=== PATIENT | female | born 2000 | race Caucasian/White ===

== ENCOUNTER 2022-06-18 07:39 | Inpatient (IN) ==
[2022-06-18] MEDS ORDERED: OXYTOCIN 30 UNITS/500 ML BAG IV PRN (08:54)
[2022-06-18] MEDS ORDERED: LIDOCAINE 1% LOCAL 20 ML VIAL INFIL PRN (08:54)
[2022-06-18] MEDS ORDERED: DINOPROSTONE 10 MG INSERT PV ONE (08:54)
--- NOTE | 2022-06-18 09:27 | History & Physical Report ---
Date of Service June 18, 2022 Assessment & Plan (1) IUGR (intrauterine growth restriction): Plan: 21-year-old G1, P0 at 37 weeks of gestation with severe IUGR, recommended induction of at 37 weeks by [facility], Vital signs stable afebrile, heart rate reassuring, GBS negative, Cervix unfavorable, Plan to admit, monitor, labs, cervical ripening with Cervidil, Patient understands what to expect during induction of labor, All questions were answered. Admission and Anticipated Discharge Date Admission Date: June 18, 2022 History of Present Illness Primary Care Provider: NO PCP Patient is a 21-year-old G1, P0 at 37 weeks of gestation who was scheduled for induction of labor for severe IUGR, recommended by [facility], estimated weight less than 1 percentile. Patient has no complaints. She denies contractions, leakage of fluid, vaginal bleeding. She reports good movements. Her has been complicated by 1. IUGR, Doppler studies were within normal limits, 2. History of anorexia nervosa, BMI of 17 at new OB visit, 3. History of heart palpitations, echo was within normal limits, Allergies Allergy/AdvReac Type Severity Reaction Status Date / Time ibuprofen [From Motrin] Allergy Unknown Verified 06/18/22 08:20 Penicillins Allergy Hives Verified 06/18/22 08:20 Home Medications Medication Instructions Recorded Confirmed Type prenat.vits,jesús,fvj-edmd-mdagc 1 tab PO DAILY 06/18/22 06/18/22 History Patient History Medical History (Updated 06/18/22 @ 09:26 by Jemal Muller MD) Anorexia nervosa in remission Family History Other FHx: pancreatic cancer Social History Smoking Status: Never smoker Hx Alcohol Use: No Hx Substance Use: No Preferred Language: Chadian Communication Ability: Effective Mail Manager Required: No Beliefs That Will Affect Care: None marital status: Single Current Living Situation: Significant Other Other Information That Helps Us Care for You: No Feels Safe at Home: Yes Safety Concerns: Feels Safe At This Time Assistive Devices: None 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 STDs, no history of chlamydia, gonorrhea, herpes Review of Systems as per Subjective / HPI Physical Exam Constitutional: WD/WN, vitals as above well developed, well nourished and + thin Genitourinary: normal external appearance OB Exam Abdomen: + vertex (Confirmed by bedside ultrasound) Manual OB Exam: + cervical dilation (0), + cervical effacement (0) and + station high OB Exam Monitor Tracing: + external uterine monitor used and + category I Results & Data ([facility]) Vital Signs (Past 12 Hours) Vital Signs Temp Pulse Resp BP 06/18/22 08:42 82 124/81 06/18/22 07:52 36.8 C 99 H 20 128/86
[2022-06-18 09:28] LABS: Hematocrit (blood only) 39.8 % (37.0-47.0); Hemoglobin 13.6 g/dl (12.0-16.0); Mean Corpuscular Hemoglobin 30.6 pg (25.0-34.0); Mean Corpuscular Hgb Conc 34.2 g/dL (32.0-36.0); Mean Corpuscular Volume 89.6 fL (80.0-100.0); Mean Platelet Volume 10.1 fL (9.4-12.4); Platelet Count 233 K/uL (130-400); RDW Coefficient of Variation 12.7 % (11.5-14.5); RDW Standard Deviation 41.7 fL (36.4-46.3); Red Blood Count 4.44 M/uL (4.20-5.40); White Blood Count 9.19 K/ul (4.8-10.8)
[2022-06-18] MEDS ORDERED: BUTORPHANOL TARTRATE 1 MG/ML VIAL IV PRN (09:40)
--- NOTE | 2022-06-18 23:16 | Obstetrical Progress Note ---
Date of Service June 18, 2022 Assessment & Plan Admission and Anticipated Discharge Date Admission Date: June 18, 2022 Subjective Patient is reevaluated. She does not feel contractions. Mild irregular cramping only. No LOF/VB Cervidil was removed by her nurse. VE; cervix is still closed, 50%, -3 FHR categ I Patient desires to eat and then continue with cervical ripening. Results & Data ([facility]) Vital Signs (Past 12 Hours) Vital Signs Temp Pulse Resp BP 06/18/22 19:09 36.7 C 74 18 114/74 06/18/22 15:48 36.8 C 64 20 123/68 06/18/22 11:29 36.8 C 79 20 119/78
[2022-06-19] MEDS: miSOPROStoL 50 MCG TAB PO SCH ×4 (00:30→20:33)
--- NOTE | 2022-06-19 15:17 | Labor Progress Brief Note ---
Date of Service June 19, 2022 Assessment & Plan Admission and Anticipated Discharge Date Admission Date: June 18, 2022 Physical Exam Genitourinary: Manual OB Exam: + cervical dilation fingertip, + cervical effacement 50% and + station high OB Exam Monitor Tracing: + external FHT monitor used, + external uterine monitor used, + category I and + normal FHT variability cervix still posterior and tightly closed. Karolina every 2 minutes so not able to re-dose Cytotec or Oxytocin at this time. Will continue laboring and ambulating as patient wants unmedicated labor/delivery. [facility] Vital Signs (Past 12 Hours) Vital Signs Temp Pulse Resp BP 06/19/22 14:01 74 109/74 06/19/22 10:40 18 06/19/22 10:40 36.6 C 18 06/19/22 10:41 72 109/78 06/19/22 08:06 70 107/76 06/19/22 04:02 36.6 C 55 L 18 101/59 L
[2022-06-20] MEDS: miSOPROStoL 50 MCG TAB PO SCH ×5 (02:52→23:44)
[2022-06-20] MEDS: LACTATED RINGER'S 1,000 ML IV PRN ×2 (05:51→10:06)
[2022-06-20] MEDS ORDERED: OXYTOCIN 30 UNITS/500 ML BAG IV PRN (08:57)
--- NOTE | 2022-06-20 09:00 | Obstetrical Progress Note ---
Date of Service June 20, 2022 Assessment & Plan (1) 37 weeks gestation of : Plan: Patient currently on day 3 of induction, has received Cervidil and Cytotec. Last dose of Cytotec 530 this morning Patient has made little to no progress, she was agreeable to AROM and started oxytocin for augmentation Start Pit, anticipate spontaneous vaginal delivery Discussed with patient if she does not go into active labor of 6 cm, after 24 hours of oxytocin, consider failed induction and plan for primary Patient voiced understanding and agreement with the plan. All questions answered in the room (2) IUGR (intrauterine growth restriction): (3) Anorexia nervosa in remission: Admission and Anticipated Discharge Date Admission Date: June 18, 2022 Subjective Patient comfortable in bed at this time, denies any complaints Physical Exam Genitourinary: heart tracing: Baseline 1 35-1 40, moderate variability, positive accelerations, no decelerations, category 1 tracing Tocometer: Irregular contractions Cervix: 05/25/2, AROM performed with copious amount of clear fluid, no cord felt, IUPC placed No complications Results & Data ([facility]) Vital Signs (Past 12 Hours) Vital Signs Temp Pulse Resp BP Pulse Ox 06/20/22 07:20 36.8 C 18 06/20/22 07:20 18 06/20/22 08:56 100 06/20/22 08:56 72 06/20/22 08:56 67 133/82 06/20/22 08:51 68 100 06/20/22 08:46 73 87 L 06/20/22 08:45 229 H 82 L 06/20/22 08:40 75 99 06/20/22 08:36 70 90 06/20/22 08:35 65 100 06/20/22 08:30 67 98 06/20/22 08:25 69 99 06/20/22 08:20 76 98 06/20/22 08:15 79 98 06/20/22 08:10 76 97 06/20/22 08:05 73 98 06/20/22 08:01 78 92 06/20/22 08:00 72 98 06/20/22 07:55 73 98 06/20/22 07:50 72 98 06/20/22 07:45 79 99 06/20/22 07:40 79 99 06/20/22 07:39 82 92 06/20/22 07:35 71 98 06/20/22 07:30 79 98 06/20/22 07:25 85 128/76 96 06/20/22 07:20 95 H 95 06/20/22 07:15 72 98 06/20/22 07:10 71 97 06/20/22 07:11 72 91 06/20/22 07:05 69 97 06/20/22 07:00 64 97 06/20/22 06:55 63 97 06/20/22 06:50 62 97 06/20/22 06:45 62 97 06/20/22 06:40 65 97 06/20/22 06:35 63 98 06/20/22 06:30 63 98 06/20/22 06:25 72 99 06/20/22 06:20 63 100 06/20/22 06:10 65 100 06/20/22 06:05 63 100 06/20/22 06:00 98 06/20/22 06:00 70 06/20/22 06:00 63 92 06/20/22 05:55 67 100 06/20/22 05:52 68 129/82 06/20/22 05:50 94 06/20/22 05:50 82 06/20/22 05:50 122 H 89 L 06/20/22 03:06 16 06/20/22 03:06 36.8 C 16 06/20/22 03:07 63 101/60 06/19/22 23:31 36.7 C 61 18 96/51 L
[2022-06-20] MEDS ORDERED: fentaNYL citrate 100 MCG/2 ML VIAL ONE (10:13)
[2022-06-20] MEDS ORDERED: ePHEDrine sulfate 50 MG/ML AMP ONE (10:13)
[2022-06-20] MEDS ORDERED: SODIUM CHLORIDE 0.9% INJ 10 ML VIAL ONE (10:13)
[2022-06-20] MEDS ORDERED: BUPIVACAINE 0.25% 30 ML VIAL ONE (10:14)
[2022-06-20] MEDS ORDERED: LIDOCAINE 2%/EPINEPHRINE 1:200,000 20 ML SDV ONE ×2 (10:14→15:27)
[2022-06-20] MEDS ORDERED: fentaNYL 2MCG/ML ROPIVACAINE 1.25MG/ML 100 ML BAG EPI ONE (10:14)
[2022-06-20] MEDS ORDERED: fentaNYL 2MCG/ML ROPIVACAINE 1.25MG/ML 100 ML BAG EPI PRN (11:00)
[2022-06-20] MEDS ORDERED: NALOXONE HCL 1 MG in SODIUM CHLORIDE 0.9% 1000ML 1,000 ML IV PRN ×2 (11:00→16:08)
[2022-06-20] MEDS ORDERED: ONDANSETRON INJ 2 MG/ML 2 ML VIAL IV PRN ×2 (11:00→16:08)
[2022-06-20] MEDS ORDERED: ePHEDrine sulfate 50 MG/ML AMP IV PRN ×2 (11:00→16:08)
[2022-06-20] MEDS ORDERED: NALOXONE HCL 0.4 MG/1 ML VIAL/CARP IV PRN ×2 (11:00→16:08)
[2022-06-20] MEDS ORDERED: NALBUPHINE HCL INJ 10 MG/ML AMP IV PRN ×2 (11:00→16:08)
[2022-06-20] MEDS ORDERED: diphenhydrAMINE 50 MG/ML VIAL IV PRN ×2 (11:00→16:08)
--- NOTE | 2022-06-20 11:01 | Anesthesiology Consultation ---
Date of Service June 20, 2022 Assessment & Plan Chart Review Chart Review: Patient NOT seen in Pre Admission Testing and Acceptable Risk for Labor Epidural Consults Requested none ASA ASA2 Proposed Anesthesia Anesthesia Type: Labor Epidural Risk / Benefits Reviewed With: PT / POA / Parent / Guardian, Accepts Plan and Informed Consent Obtained History Height/Weight Height: 5 ft 6 in Weight: 68.039 kg Allergies Allergy/AdvReac Type Severity Reaction Status Date / Time ibuprofen [From Motrin] Allergy Unknown Verified 06/18/22 08:20 Penicillins Allergy Hives Verified 06/18/22 08:20 Medications Home Medications Medication Instructions Recorded Confirmed Last Taken prenat.vits,jesús,krt-gmah-eoyml 1 tab PO DAILY 06/18/22 06/18/22 06/17/22 19:00 Active Medications Generic Name Dose Route Start Last Admin Trade Name Freq PRN Reason Stop Dose Admin Lactated Ringer's 1,000 mls @ 150 mls/hr 06/18/22 08:54 06/20/22 10:06 Lr IV 06/27/22 08:53 999 mls/hr .[id number] PRN Infusion L&D Protocol Protocol Oxytocin 30 units in 500 mls @ 2 mls/hr 06/20/22 08:57 06/20/22 09:38 Pitocin IV 06/22/22 08:56 0.12 units/hr .Q24H PRN 2 mls/hr Labor Induction/Augmentation Administration Protocol 0.12 UNITS/HR Misoprostol 50 mcg 06/19/22 00:00 06/20/22 09:15 Misoprostol 50 Mcg Tab PO 07/19/22 00:00 Not Given Q4 SUSAN Past Medical History Medical History (Updated 06/20/22 @ 08:34 by Diamond Elizabeth MD, PhD) Anorexia nervosa in remission Exercise / Class Metabolic Activity II 4-5 Yardwork/Stairs/Walk up hill Past Family History Family History Other FHx: pancreatic cancer Past Anesthesia History No Hx of Anesthesia Complications and No Family Hx of Anesthesia Complications History of PONV No Hx of PONV and No Hx of Motion Sickness Social History Smoking Status: Never smoker Hx Alcohol Use: No Hx Substance Use: No Physical Exam Vital Signs Last Vital Signs Temp 36.9 C 06/20/22 10:56 Pulse 96 H 06/20/22 10:59 Resp 16 06/20/22 10:56 BP 115/72 06/20/22 10:59 Pulse Ox 100 06/20/22 10:56 ENMT Mouth: no dentition abnormality Thyromental Distance: > or= 3.5 Finger Breadths Mallampati Class: II Neck normal visual inspection Respiratory normal respiratory effort Auscultation: lungs clear to auscultation bilaterally Cardiovascular Rate/Rhythm: regular rate and regular rhythm Psychiatric Orientation: alert Testing Laboratory Results 06/18/22 09:11
--- NOTE | 2022-06-20 11:32 | Obstetrical Progress Note ---
Date of Service June 20, 2022 Assessment & Plan (1) 37 weeks gestation of : Plan: Continue augmentation Anticipate spontaneous vaginal delivery (2) IUGR (intrauterine growth restriction): (3) Anorexia nervosa in remission: Admission and Anticipated Discharge Date Admission Date: June 18, 2022 Subjective Patient comfortable in bed at this time, denies any complaints Epidural in place Physical Exam Genitourinary: FHT:baseline 103s, mod variability, +accels, late decels, cat II tracing [place]: q2 min pit at 2 Cx; 1.5/50/-[address] Results & Data ([facility]) Vital Signs (Past 12 Hours) Vital Signs Temp Pulse Resp BP Pulse Ox 06/20/22 07:20 36.8 C 18 06/20/22 07:20 18 06/20/22 11:26 77 100 06/20/22 11:24 81 108/71 92 06/20/22 11:21 77 99 06/20/22 11:00 18 06/20/22 11:00 18 06/20/22 11:19 73 109/68 06/20/22 11:16 75 85 L 06/20/22 11:15 74 111/69 06/20/22 11:11 79 99 06/20/22 11:09 75 111/68 06/20/22 11:07 92 06/20/22 11:07 79 06/20/22 11:06 79 100 06/20/22 11:07 71 109/58 L 06/20/22 11:05 73 112/67 06/20/22 11:03 72 109/59 L 06/20/22 11:01 81 103/60 98 06/20/22 10:59 96 H 115/72 06/20/22 10:57 73 110/66 06/20/22 10:54 16 06/20/22 10:54 16 06/20/22 10:56 16 06/20/22 10:56 36.9 C 78 16 100 06/20/22 10:55 76 116/68 06/20/22 10:52 77 90 06/20/22 10:53 80 122/74 06/20/22 10:51 100 06/20/22 10:51 84 06/20/22 10:51 72 119/76 06/20/22 10:48 125/78 06/20/22 10:46 90 100 02/15/23 10:43 90 93 06/20/22 10:41 74 100 06/20/22 10:36 70 99 06/20/22 10:33 78 139/84 06/20/22 10:34 63 120/78 06/20/22 10:31 77 100 06/20/22 10:26 95 06/20/22 10:26 73 06/20/22 10:26 74 93 06/20/22 10:21 75 96 06/20/22 10:19 80 88 L 06/20/22 10:18 81 130/79 06/20/22 10:16 79 97 06/20/22 10:12 73 91 06/20/22 10:11 64 100 06/20/22 10:06 72 100 06/20/22 10:04 74 90 06/20/22 10:03 66 126/80 06/20/22 10:01 84 97 06/20/22 09:58 79 92 06/20/22 09:56 80 100 06/20/22 09:51 80 95 06/20/22 09:48 71 129/86 06/20/22 09:46 79 99 06/20/22 09:41 73 99 06/20/22 09:36 73 99 06/20/22 09:31 71 100 06/20/22 09:21 81 99 06/20/22 09:16 72 99 06/20/22 09:11 84 98 06/20/22 09:07 89 91 06/20/22 09:06 76 98 06/20/22 08:50 18 06/20/22 08:50 36.9 C 18 06/20/22 09:01 76 100 06/20/22 08:57 69 120/85 06/20/22 08:56 100 06/20/22 08:56 72 06/20/22 08:56 67 133/82 06/20/22 08:51 68 100 06/20/22 08:46 73 87 L 06/20/22 08:45 229 H 82 L 06/20/22 08:40 75 99 06/20/22 08:36 70 90 06/20/22 08:35 65 100 06/20/22 08:30 67 98 06/20/22 08:25 69 99 06/20/22 08:20 76 98 06/20/22 08:15 79 98 06/20/22 08:10 76 97 06/20/22 08:05 73 98 06/20/22 08:01 78 92 06/20/22 08:00 72 98 06/20/22 07:55 73 98 06/20/22 07:50 72 98 06/20/22 07:45 79 99 06/20/22 07:40 79 99 06/20/22 07:39 82 92 06/20/22 07:35 71 98 06/20/22 07:30 79 98 06/20/22 07:25 85 128/76 96 06/20/22 07:20 95 H 95 06/20/22 07:15 72 98 06/20/22 07:10 71 97 06/20/22 07:11 72 91 06/20/22 07:05 69 97 06/20/22 07:00 64 97 06/20/22 06:55 63 97 06/20/22 06:50 62 97 06/20/22 06:45 62 97 06/20/22 06:40 65 97 06/20/22 06:35 63 98 06/20/22 06:30 63 98 06/20/22 06:25 72 99 06/20/22 06:20 63 100 06/20/22 06:10 65 100 06/20/22 06:05 63 100 06/20/22 06:00 98 06/20/22 06:00 70 06/20/22 06:00 63 92 06/20/22 05:55 67 100 06/20/22 05:52 68 129/82 06/20/22 05:50 94 06/20/22 05:50 82 06/20/22 05:50 122 H 89 L 06/20/22 03:06 16 06/20/22 03:06 36.8 C 16 06/20/22 03:07 63 101/60 06/19/22 23:31 36.7 C 61 18 96/51 L
[2022-06-20] MEDS ORDERED: GENTAMICIN CONSULT ACTIVE PRN (14:24)
--- NOTE | 2022-06-20 14:27 | Obstetrical Progress Note ---
Date of Service June 20, 2022 Assessment & Plan (1) 37 weeks gestation of : Plan: Noted prolonged category 2 tracing, with recurrent late decelerations, oxytocin was discontinued. Remained category 2 tracing despite intervention and maternal repositioning. Now minimal to absent variability. We will proceed with primary Patient was counseled at the bedside, consents were signed, see op report for counseling note Preop gent and clinda ordered Proceed with primary delivery (2) IUGR (intrauterine growth restriction): (3) Anorexia nervosa in remission: Admission and Anticipated Discharge Date Admission Date: June 18, 2022 Subjective Patient comfortable in bed at this time, denies any complaints Epidural in place Physical Exam Genitourinary: heart tracing: Baseline 135, minimal variability, no accelerations, previously having late recurrent decelerations, category 2 tracing Tocometer: Contractions every 3 to 4 minutes Cervix: Remains unchanged from previous exam Results & Data ([facility]) Vital Signs (Past 12 Hours) Vital Signs Temp Pulse Resp BP Pulse Ox 06/20/22 07:20 36.8 C 18 06/20/22 07:20 18 06/20/22 14:21 87 94 06/20/22 14:19 92 H 92 06/20/22 14:16 80 98 06/20/22 14:13 75 116/71 06/20/22 14:12 81 93 06/20/22 14:11 79 99 06/20/22 14:07 81 91 06/20/22 14:06 81 96 06/20/22 14:01 73 82 L 06/20/22 13:55 18 06/20/22 13:55 37.0 C 18 06/20/22 14:00 72 18 92 06/20/22 13:59 64 112/72 06/20/22 13:56 70 95 06/20/22 13:52 78 92 06/20/22 13:51 71 99 06/20/22 13:46 76 99 06/20/22 13:42 67 92/55 L 06/20/22 13:41 74 100 06/20/22 13:40 73 93 06/20/22 13:36 71 98 06/20/22 13:31 68 99 06/20/22 13:30 18 06/20/22 13:30 18 06/20/22 13:29 69 101/58 L 06/20/22 13:26 92 06/20/22 13:26 77 06/20/22 13:26 87 85 L 06/20/22 13:21 68 100 06/20/22 13:16 71 96 06/20/22 13:17 74 94 06/20/22 13:00 16 06/20/22 13:00 16 06/20/22 13:12 71 94/53 L 06/20/22 13:11 78 100 06/20/22 13:06 83 98 06/20/22 13:01 80 100 06/20/22 12:56 100 06/20/22 12:56 78 06/20/22 12:57 76 104/53 L 06/20/22 12:56 77 94 06/20/22 12:51 81 100 06/20/22 12:30 20 06/20/22 12:30 20 06/20/22 12:46 79 84 L 06/20/22 12:47 71 90 06/20/22 12:30 20 06/20/22 12:30 20 06/20/22 12:43 77 121/65 06/20/22 12:41 71 97 06/20/22 12:42 71 91 06/20/22 12:36 71 94 06/20/22 12:31 76 100 06/20/22 12:28 73 87 L 06/20/22 12:26 74 100 06/20/22 12:27 80 116/75 06/20/22 12:21 67 100 06/20/22 12:20 74 89 L 06/20/22 12:16 100 06/20/22 12:16 70 06/20/22 12:16 68 100/62 06/20/22 12:14 89 L 06/20/22 12:14 74 06/20/22 12:14 68 93/53 L 06/20/22 12:11 69 99 06/20/22 12:06 70 100 06/20/22 12:00 16 06/20/22 12:00 16 06/20/22 12:01 72 97 06/20/22 11:59 80 93 06/20/22 11:58 75 114/62 06/20/22 11:56 87 96 06/20/22 11:52 75 85 L 06/20/22 11:51 79 97 06/20/22 11:46 75 100 06/20/22 11:45 81 90 06/20/22 11:43 74 110/67 06/20/22 11:41 75 100 06/20/22 11:38 83 90 06/20/22 11:13 16 06/20/22 11:13 16 06/20/22 11:36 80 100 06/20/22 11:30 18 06/20/22 11:30 18 06/20/22 11:31 79 16 100 06/20/22 11:00 18 06/20/22 11:00 18 06/20/22 11:26 77 100 06/20/22 11:24 81 108/71 92 06/20/22 11:21 77 99 06/20/22 11:00 18 06/20/22 11:00 18 06/20/22 11:19 73 109/68 06/20/22 11:16 75 85 L 06/20/22 11:15 74 111/69 06/20/22 11:11 79 99 06/20/22 11:09 75 111/68 06/20/22 11:07 92 06/20/22 11:07 79 06/20/22 11:06 79 16 100 06/20/22 11:07 71 109/58 L 06/20/22 11:05 73 112/67 06/20/22 11:03 72 109/59 L 06/20/22 11:01 81 103/60 98 06/20/22 10:59 96 H 115/72 06/20/22 10:57 73 110/66 06/20/22 10:54 16 06/20/22 10:54 16 06/20/22 10:56 16 06/20/22 10:56 36.9 C 78 16 100 06/20/22 10:55 76 116/68 06/20/22 10:52 77 90 06/20/22 10:53 80 122/74 06/20/22 10:51 100 06/20/22 10:51 84 06/20/22 10:51 72 119/76 06/20/22 10:48 125/78 06/20/22 10:46 90 100 06/20/22 10:43 90 93 06/20/22 10:41 74 100 06/20/22 10:36 70 99 06/20/22 10:33 78 139/84 06/20/22 10:34 63 120/78 06/20/22 10:31 77 100 06/20/22 10:26 95 06/20/22 10:26 73 06/20/22 10:26 74 93 06/20/22 10:21 75 96 06/20/22 10:19 80 88 L 06/20/22 10:18 81 130/79 06/20/22 10:16 79 97 06/20/22 10:12 73 91 06/20/22 10:11 64 100 06/20/22 10:06 72 100 06/20/22 10:04 74 90 06/20/22 10:03 66 126/80 06/20/22 10:01 84 97 06/20/22 09:58 79 92 06/20/22 09:56 80 100 06/20/22 09:51 80 95 06/20/22 09:48 71 129/86 06/20/22 09:46 79 99 06/20/22 09:41 73 99 06/20/22 09:36 73 99 06/20/22 09:31 71 100 06/20/22 09:21 81 99 06/20/22 09:16 72 99 06/20/22 09:11 84 98 06/20/22 09:07 89 91 06/20/22 09:06 76 98 06/20/22 08:50 18 06/20/22 08:50 36.9 C 18 06/20/22 09:01 76 100 06/20/22 08:57 69 120/85 06/20/22 08:56 100 06/20/22 08:56 72 06/20/22 08:56 67 133/82 06/20/22 08:51 68 100 06/20/22 08:46 73 87 L 06/20/22 08:45 229 H 82 L 06/20/22 08:40 75 99 06/20/22 08:36 70 90 06/20/22 08:35 65 100 06/20/22 08:30 67 98 06/20/22 08:25 69 99 06/20/22 08:20 76 98 06/20/22 08:15 79 98 06/20/22 08:10 76 97 06/20/22 08:05 73 98 06/20/22 08:01 78 92 06/20/22 08:00 72 98 06/20/22 07:55 73 98 06/20/22 07:50 72 98 06/20/22 07:45 79 99 06/20/22 07:40 79 99 06/20/22 07:39 82 92 06/20/22 07:35 71 98 06/20/22 07:30 79 98 06/20/22 07:25 85 128/76 96 06/20/22 07:20 95 H 95 06/20/22 07:15 72 98 06/20/22 07:10 71 97 06/20/22 07:11 72 91 06/20/22 07:05 69 97 06/20/22 07:00 64 97 06/20/22 06:55 63 97 06/20/22 06:50 62 97 06/20/22 06:45 62 97 06/20/22 06:40 65 97 06/20/22 06:35 63 98 06/20/22 06:30 63 98 06/20/22 06:25 72 99 06/20/22 06:20 63 100 06/20/22 06:10 65 100 06/20/22 06:05 63 100 06/20/22 06:00 98 06/20/22 06:00 70 06/20/22 06:00 63 92 06/20/22 05:55 67 100 06/20/22 05:52 68 129/82 06/20/22 05:50 94 06/20/22 05:50 82 06/20/22 05:50 122 H 89 L 06/20/22 03:06 16 06/20/22 03:06 36.8 C 16 06/20/22 03:07 63 101/60
--- NOTE | 2022-06-20 14:30 | Discharge Summary ---
Date of Service June 20, 2022 Admission HPI Per Admitting Provider Patient is a 21-year-old G1, P0 at 37 weeks of gestation who was scheduled for induction of labor for severe IUGR, recommended by MFM, estimated weight less than 1 percentile. Patient has no complaints. She denies contractions, leakage of fluid, vaginal bleeding. She reports good movements. Her has been complicated by 1. IUGR, Doppler studies were within normal limits, 2. History of anorexia nervosa, BMI of 17 at new OB visit, 3. History of heart palpitations, echo was within normal limits, Admission Exam (Per Admitting) Constitutional WD/WN, vitals as above Respiratory normal respiratory effort, lungs clear to auscultation Cardiovascular RRR, no murmur, no edema Gastrointestinal (Abdomen) normal bowel sounds, soft, nontender, no hepatosplenomegaly Hospital Course (1) 37 weeks gestation of : Noted prolonged category 2 tracing, with recurrent late decelerations, oxytocin was discontinued. Remained category 2 tracing despite intervention and maternal repositioning. Now minimal to absent variability. We will proceed with primary Patient was counseled at the bedside, consents were signed, see op report for counseling note Preop gent and clinda ordered Proceed with primary delivery (2) IUGR (intrauterine growth restriction): (3) Anorexia nervosa in remission:
[2022-06-20] MEDS ORDERED: CITRIC ACID/SODIUM CITRATE 15 ML UDC PO STA (14:51)
[2022-06-20] MEDS ORDERED: GENTAMICIN SULFATE 340 MG in DEXTROSE 5% 100 ML IV ONE (15:00)
[2022-06-20] MEDS ORDERED: CLINDAMYCIN/D5W 900 MG/50 ML BAG IV ONE (15:00)
[2022-06-20] MEDS ORDERED: MoRPHine SULFATE PF 1 MG/ML 10 ML AMP/VIAL ONE (15:26)
[2022-06-20] MEDS ORDERED: ONDANSETRON INJ 2 MG/ML 2 ML VIAL ONE (15:26)
[2022-06-20] MEDS ORDERED: KETOROLAC 30 MG/ML VIAL ONE (15:26)
[2022-06-20] MEDS ORDERED: OXYTOCIN 10 UNITS/ML 10ML VIAL ONE (15:26)
[2022-06-20] MEDS ORDERED: MoRPHine SULFATE 2 MG/ML CARP IV PRN (16:08)
[2022-06-20] MEDS ORDERED: PROMETHAZINE HCL 6.25 MG in SODIUM CHLORIDE 0.9% 50 ML IV PRN (16:08)
[2022-06-20] MEDS ORDERED: MoRPHine SULFATE PF 1 MG/ML 10 ML AMP/VIAL INT SPINAL ONE (16:08)
[2022-06-20] MEDS ORDERED: MEPERIDINE HCL 25 MG/ML CARP/VIAL IV PRN (16:08)
[2022-06-20] MEDS ORDERED: LACTATED RINGER'S 500 ML IV PRN (16:08)
[2022-06-20] MEDS ORDERED: HYDROmorphone INJ 0.5 MG/0.5 ML SYR IV PRN (16:08)
[2022-06-20] MEDS ORDERED: NALOXONE HCL 0.08 MG in SYRINGE 1.8 ML IV PRN (16:08)
[2022-06-20] MEDS ORDERED: SODIUM CHLORIDE 0.9% 1000ML 1,000 ML IV SCH (16:15)
[2022-06-20] MEDS ORDERED: DC INTRASPINAL MORPHINE SCH (16:15)
[2022-06-20] MEDS ORDERED: NO NARCOTICS OR SEDATIVES SCH (16:15)
[2022-06-20] MEDS ORDERED: DIPHTHERIA/TETANUS/PERTUSSIS 0.5mL SYR/VIAL (Age 7+yrs) IM ONE (16:17)
[2022-06-20] MEDS ORDERED: MAGNESIUM HYDROXIDE SUSP 30 ML UDC PO PRN (16:17)
[2022-06-20] MEDS ORDERED: ACETAMINOPHEN 325 MG TAB PO PRN (16:17)
[2022-06-20] MEDS ORDERED: BENZOCAINE 20% AER SPR 82.5 GM CAN EXT PRN (16:17)
[2022-06-20] MEDS ORDERED: HYDROCORTISONE ACETATE 25 MG SUPP PR PRN (16:17)
[2022-06-20] MEDS ORDERED: SENNA 8.6 MG TAB PO PRN (16:17)
--- NOTE | 2022-06-20 16:27 | Operative Report ---
Post Operative Report Pre & Post Diagnosis Operation Date: 06/20/22 15:30 Primary lower transverse delivery 37 weeks gestation IUGR Nonreassuring heart tracing Remote from delivery Inadequate weight gain in I identified the patient and participated in the time-out.: Yes Procedure Operation Date: 06/20/22 15:30 Primary lower transverse delivery Surgeon Diamond Elizabeth MD, PhD Automatic Toe Laster physical therapist assistant x2 Estimated Blood Loss 500 Findings Consistent with Post-Op Diagnosis Liveborn male at 1547, Apgars 8/9, weight 2179 g. Intact placenta with three- vessel cord. Normal-appearing uterus, bilateral fallopian tubes and ovaries seen at time of surgery. Cord pH pending Fluids See anesthesia record Specimens Placenta Cord pH Drains Torres catheter Anesthesia Type Labor Epidural Complications None Disposition Accompanied Patient To Recovery: No Indications Nonreassuring heart tracing, remote from delivery, IUGR Description of Procedure CD Delivery Note History synopsis: Patient is a 21-year-old -0-1-0 admitted at 37 weeks for induction of labor for IUGR. Upon admission to labor and delivery she received 1 dose of Cervidil, remained closed and was started on p.o. Cytotec which she received several doses 4. On induction day 3 she was checked and found to be 1 cm dilated, artificial rupture of membranes was performed with moderate amount of clear fluid, IUPC was placed and oxytocin was started for augmentation. She received an epidural for pain control. She only progressed to 1.5 cm. She was noted to have recurrent late decelerations, with moderate variability and positive accelerations, and oxytocin was discontinued. Positional changes were made, maternal resuscitation was performed by nursing staff. She continued to have late decelerations, with minimal to absent variability at times, and decision was made to proceed with urgent delivery. Procedure Summary: section was recommended. Risks, benefits and alternatives were discussed including but not limited to infection, bleeding that may require blood products or hysterectomy for life saving measures, injury to surrounding organs including but not limited to bowel, bladder, ureters, tubes and ovaries and/or the baby. Should injury occur it could require longer/additional surgery to repair. Patient was also counselled about risk of DVT/PE, and injury to infant during delivery. The patient stated understanding and desired to proceed. All questions were answered posed by patient. Prior to being taken to the OR, she was given IV clindamycin and gentamicin for antibiotics was administered. The patient was taken to the operating room where regional anesthesia was found to be adequate.She was then prepared and draped in the usual sterile fashion in the dorsal supine position with a leftward tilt displacing the uterus. Torres was draining to gravity. SCDs were on bilateral lower extremities. A pfannenstiel skin incision was then made with the scalpel and carried through to the underlying layer of fascia. The fascia was incised in the midline and the incision extended laterally with the Colmenares scissors. The superior aspect of the facial incision was then grasped with the Rona clamps, elevated and the underlying rectus muscles dissected off bluntly. Attention was then turned to the inferior aspect of this incision which in a similar fashion was grasped, elevated with the Rona clamps and the rectus muscle dissected off bluntly. The rectus muscles were in the midline. The peritoneum identified, grasped with the pick-ups and entered sharply with the Metzenbaum scissors. The peritoneal incision was then extended superiorly and inferiorly with good visualization of the bladder. The bladder blade was inserted and the vesicouterine peritoneum was identified, grasped with the pick-ups, and entered sharply with Metzenbaum scissors. This incision was then extended laterally and the bladder flap created digitally and the bladder blade was reinserted. The lower uterine segment was identified and incised in a transverse fashion with the scalpel. The uterine incision was then extended bluntly laterally. Artificial rupture of membranes demonstrated clear fluid. The bladder blade was removed. The fetus was in cephalic presentation. The infant's head delivered atraumatically. The anterior shoulders were delivered followed by the posterior shoulders then the remainder of the body. The 's mouth and nose were bulb suctioned. The umbilical cord was clamped times two and cut after 30 seconds of delayed cord clamping. The was handed off to the awaiting pediatric staff. A male infant was delivered weighing 2179 g with APGARS of 8 at 1 minute and 9 at 5 minutes. The infant was taken to the nursery for transition. Cord blood gases were obtained. The placenta was removed with manual removal. 30 units of oxytocin were added to IVF and allowed to run freely. The uterus was exteriorized and cleared of all clots and debris. The uterine incision was inspected and found to be without any extensions and was repaired with 0 Vicryl in a running, locked fashion. A second imbricating layer was performed. Upon inspection, the repaired hysterotomy was found to be hemostatic. The uterus was firm and returned to the abdomen. The gutters were cleared of all clots and debris. Noted small area of bleeding from the site of the hysterotomy which closed in [id number] fashion with 0 Vicryl. Xander was then placed on top of the hysterotomy incision. Good hemostasis was noted. The peritoneum was closed with 2-0 Vicryl in a running fashion. The fascia was reapproximated with 0 Vicryl in a running fashion. The subcutaneous layer was closed with 2-0 Vicryl in an interrupted fashionthe skin was closed in a subcuticular fashion with 4-0 vicryl. The incision was covered with Dermabond. The patient tolerated the procedure well. Sponge, lap and needle counts were correct x4. The patient was taken to the recovery room in stable condition. Attestation: My Automatic Toe Laster was necessary throughout the procedure(s) for tissue retraction. I understand that section 1842 (b)(7)(D) of the Social Security Act generally prohibits Medicare physician fee schedule payment for the services of [id number] in teaching hospitals when qualified residents are available to furnish such services. I certify that the services for which payment is claimed were medically necessary, and that no qualified resident was available to perform the services. I further understand that these services are subject to post-payment review by the Medicare carrier. I attest to the content of the Intraoperative Record and any orders documented therein. Any exceptions are noted below.
[2022-06-20] MEDS ORDERED: LACTATED RINGER'S 1,000 ML IV SCH (16:30)
--- NOTE | 2022-06-20 16:30 | Anesthesia Procedure Note ---
Date of Service June 20, 2022 Anesthesia Post Epidural Note Vital Signs Vital Signs: Temp Pulse Resp BP Pulse Ox 37.0 C 111 H 16 117/58 L 100 06/20/22 13:55 06/20/22 16:26 06/20/22 14:30 06/20/22 16:23 06/20/22 16:26 Pain Intensity Lower Abdomen: Pain Intensity: 5 Notes Mental Status: alert / awake / arousable Nausea / Vomiting: adequately controlled Pain: adequately controlled Airway Patency, RR, SpO2: stable & adequate BP & HR: stable & adequate Hydration State: stable & adequate Neuraxial Anesthesia: was administered and sensory block is resolving Anesthetic Complications: no major complications apparent and Pt Satisfied with anesthetic care Epidural: Removed without complications and With tip intact
[2022-06-20 17:06] LABS: Base Excess Cord Arterial Bld -1.2 mEq/L (-9-1.8); Base Excess Cord Venous Blood -2.8 mEq/L (-7.7-1.9); CO2 Cord Arterial Blood 55 mmHg (39.1-73.5); Cord Venous Blood HCO3 25 mmol/L (18.4-26.8); Cord Venous Blood PCO2 53 mmHg (30.4-57.2); Cord Venous Blood PO2 15 mmHg (14.1-43.3); Cord Venous Blood pH 7.28 (7.20-7.44); HCO3 Cord Arterial Blood 26 mmol/L (19.7-28.5); O2 Saturation Cord Venous Bld < 60.0 % (<68); Oxygen Sat Cord Arterial Blood < 60.0 % (<60); PO2 Cord Arterial Blood 9 mmHg (4.1-31.7); pH Cord Arterial Blood 7.29 (7.1-7.38)
--- NOTE | 2022-06-20 17:15 | Anesthesiology Progress Note ---
Date of Service June 20, 2022 Anesthesia Post Procedure Vital Signs Vital Signs: Temp Pulse Resp BP Pulse Ox 06/20/22 17:05 16 06/20/22 16:55 14 06/20/22 16:45 20 06/20/22 16:35 20 06/20/22 16:25 36.7 C 18 06/20/22 07:20 36.8 C 18 06/20/22 07:20 18 06/19/22 19:04 36.8 C 18 06/20/22 17:11 94 H 99 06/20/22 17:10 93 H 92 06/20/22 17:06 101 H 98 06/20/22 17:04 83 111/55 L 06/20/22 17:03 95 H 92 06/20/22 17:01 81 99 06/20/22 16:57 99 H 91 06/20/22 16:56 89 98 06/20/22 16:54 82 113/58 L 06/20/22 16:46 102 H 100 06/20/22 16:44 100 H 115/55 L 06/20/22 16:41 110 H 100 06/20/22 16:39 106 H 93 06/20/22 16:36 97 H 100 06/20/22 16:34 114 H 111/57 L 06/20/22 16:31 119 H 100 06/20/22 16:26 111 H 100 06/20/22 16:23 142 H 117/58 L 06/20/22 16:21 121 H 100 06/20/22 15:27 96 H 115/71 06/20/22 15:26 102 H 97 06/20/22 15:21 110 H 97 06/20/22 15:16 80 99 06/20/22 14:30 16 06/20/22 14:30 16 06/20/22 15:11 82 98 06/20/22 15:12 81 110/79 06/20/22 15:06 84 98 06/20/22 15:01 87 98 06/20/22 14:56 84 95 06/20/22 14:57 77 120/81 06/20/22 14:51 83 96 06/20/22 14:46 88 89 L 06/20/22 14:42 83 118/79 06/20/22 14:41 87 89 L 06/20/22 14:38 85 84 L 02/15/23 14:36 78 100 06/20/22 14:31 81 100 06/20/22 14:26 78 94 06/20/22 14:27 73 112/70 06/20/22 14:21 87 94 06/20/22 14:19 92 H 92 06/20/22 14:16 80 98 06/20/22 14:13 75 116/71 06/20/22 14:12 81 93 06/20/22 14:11 79 99 06/20/22 14:07 81 91 06/20/22 14:06 81 96 06/20/22 14:01 73 82 L 06/20/22 13:55 18 06/20/22 13:55 37.0 C 18 06/20/22 14:00 72 18 92 06/20/22 13:59 64 112/72 06/20/22 13:56 70 95 06/20/22 13:52 78 92 06/20/22 13:51 71 99 06/20/22 13:46 76 99 06/20/22 13:42 67 92/55 L 06/20/22 13:41 74 100 06/20/22 13:40 73 93 06/20/22 13:36 71 98 06/20/22 13:31 68 99 06/20/22 13:30 18 06/20/22 13:30 18 06/20/22 13:29 69 101/58 L 06/20/22 13:26 92 06/20/22 13:26 77 06/20/22 13:26 87 85 L 06/20/22 13:21 68 100 06/20/22 13:16 71 96 06/20/22 13:17 74 94 06/20/22 13:00 16 06/20/22 13:00 16 06/20/22 13:12 71 94/53 L 06/20/22 13:11 78 100 06/20/22 13:06 83 98 06/20/22 13:01 80 100 06/20/22 12:56 100 06/20/22 12:56 78 06/20/22 12:57 76 104/53 L 06/20/22 12:56 77 94 06/20/22 12:51 81 100 06/20/22 12:30 20 06/20/22 12:30 20 06/20/22 12:46 79 84 L 06/20/22 12:47 71 90 06/20/22 12:30 20 06/20/22 12:30 20 06/20/22 12:43 77 121/65 06/20/22 12:41 71 97 06/20/22 12:42 71 91 06/20/22 12:36 71 94 06/20/22 12:31 76 100 06/20/22 12:28 73 87 L 06/20/22 12:26 74 100 06/20/22 12:27 80 116/75 06/20/22 12:21 67 100 06/20/22 12:20 74 89 L 06/20/22 12:16 100 06/20/22 12:16 70 06/20/22 12:16 68 100/62 06/20/22 12:14 89 L 06/20/22 12:14 74 06/20/22 12:14 68 93/53 L 06/20/22 12:11 69 99 06/20/22 12:06 70 100 06/20/22 12:00 16 06/20/22 12:00 16 06/20/22 12:01 72 97 06/20/22 11:59 80 93 06/20/22 11:58 75 114/62 06/20/22 11:56 87 96 06/20/22 11:52 75 85 L 06/20/22 11:51 79 97 06/20/22 11:46 75 100 06/20/22 11:45 81 90 06/20/22 11:43 74 110/67 06/20/22 11:41 75 100 06/20/22 11:38 83 90 06/20/22 11:13 16 06/20/22 11:13 16 06/20/22 11:36 80 100 06/20/22 11:30 18 06/20/22 11:30 18 06/20/22 11:31 79 16 100 06/20/22 11:00 18 06/20/22 11:00 18 06/20/22 11:26 77 100 06/20/22 11:24 81 108/71 92 06/20/22 11:21 77 99 06/20/22 11:00 18 06/20/22 11:00 18 06/20/22 11:19 73 109/68 06/20/22 11:16 75 85 L 06/20/22 11:15 74 111/69 06/20/22 11:11 79 99 06/20/22 11:09 75 111/68 06/20/22 11:07 92 06/20/22 11:07 79 06/20/22 11:06 79 16 100 06/20/22 11:07 71 109/58 L 06/20/22 11:05 73 112/67 06/20/22 11:03 72 109/59 L 06/20/22 11:01 81 103/60 98 06/20/22 10:59 96 H 115/72 06/20/22 10:57 73 110/66 06/20/22 10:54 16 06/20/22 10:54 16 06/20/22 10:56 16 06/20/22 10:56 36.9 C 78 16 100 06/20/22 10:55 76 116/68 06/20/22 10:52 77 90 06/20/22 10:53 80 122/74 06/20/22 10:51 100 06/20/22 10:51 84 06/20/22 10:51 72 119/76 06/20/22 10:48 125/78 06/20/22 10:46 90 100 06/20/22 10:43 90 93 06/20/22 10:41 74 100 06/20/22 10:36 70 99 06/20/22 10:33 78 139/84 06/20/22 10:34 63 120/78 06/20/22 10:31 77 100 06/20/22 10:26 95 06/20/22 10:26 73 06/20/22 10:26 74 93 06/20/22 10:21 75 96 06/20/22 10:19 80 88 L 06/20/22 10:18 81 130/79 06/20/22 10:16 79 97 06/20/22 10:12 73 91 06/20/22 10:11 64 100 06/20/22 10:06 72 100 06/20/22 10:04 74 90 06/20/22 10:03 66 126/80 06/20/22 10:01 84 97 06/20/22 09:58 79 92 06/20/22 09:56 80 100 06/20/22 09:51 80 95 06/20/22 09:48 71 129/86 06/20/22 09:46 79 99 06/20/22 09:41 73 99 06/20/22 09:36 73 99 06/20/22 09:31 71 100 06/20/22 09:21 81 99 06/20/22 09:16 72 99 06/20/22 09:11 84 98 06/20/22 09:07 89 91 06/20/22 09:06 76 98 06/20/22 08:50 18 06/20/22 08:50 36.9 C 18 06/20/22 09:01 76 100 06/20/22 08:57 69 120/85 06/20/22 08:56 100 06/20/22 08:56 72 06/20/22 08:56 67 133/82 06/20/22 08:51 68 100 06/20/22 08:46 73 87 L 06/20/22 08:45 229 H 82 L 06/20/22 08:40 75 99 06/20/22 08:36 70 90 06/20/22 08:35 65 100 06/20/22 08:30 67 98 06/20/22 08:25 69 99 06/20/22 08:20 76 98 06/20/22 08:15 79 98 06/20/22 08:10 76 97 06/20/22 08:05 73 98 06/20/22 08:01 78 92 06/20/22 08:00 72 98 06/20/22 07:55 73 98 06/20/22 07:50 72 98 06/20/22 07:45 79 99 06/20/22 07:40 79 99 06/20/22 07:39 82 92 06/20/22 07:35 71 98 06/20/22 07:30 79 98 06/20/22 07:25 85 128/76 96 06/20/22 07:20 95 H 95 06/20/22 07:15 72 98 06/20/22 07:10 71 97 06/20/22 07:11 72 91 06/20/22 07:05 69 97 06/20/22 07:00 64 97 06/20/22 06:55 63 97 06/20/22 06:50 62 97 06/20/22 06:45 62 97 06/20/22 06:40 65 97 02/15/23 06:35 63 98 06/20/22 06:30 63 98 06/20/22 06:25 72 99 06/20/22 06:20 63 100 06/20/22 06:10 65 100 06/20/22 06:05 63 100 06/20/22 06:00 98 06/20/22 06:00 70 06/20/22 06:00 63 92 06/20/22 05:55 67 100 06/20/22 05:52 68 129/82 06/20/22 05:50 94 06/20/22 05:50 82 06/20/22 05:50 122 H 89 L 06/20/22 03:06 16 06/20/22 03:06 36.8 C 16 06/20/22 03:07 63 101/60 06/19/22 23:31 36.7 C 61 18 96/51 L 06/19/22 19:05 75 110/69 Pain Intensity Lower Abdomen: Pain Intensity: 5 Transfer of Care Handoff Completed per policy Notes Mental Status: alert / awake / arousable Nausea / Vomiting: adequately controlled Pain: adequately controlled Airway Patency, RR, SpO2: stable & adequate BP & HR: stable & adequate Hydration State: stable & adequate Neuraxial Anesthesia: was administered and sensory block is resolving Anesthetic Complications: no major complications apparent and Pt Satisfied with anesthetic care
[2022-06-20] MEDS: OXYTOCIN 30 UNITS in LACTATED RINGER'S 1,000 ML IV SCH (20:16)
[2022-06-20] MEDS: KETOROLAC 30 MG/ML VIAL IV PRN (20:38)
[2022-06-20] MEDS: DOCUSATE SODIUM 100 MG CAP PO SCH (21:19)
[2022-06-20] MEDS: SIMETHICONE 80 MG CHEW PO SCH (21:19)
[2022-06-21] MEDS: KETOROLAC 30 MG/ML VIAL IV PRN (03:47)
[2022-06-21] MEDS: OXYTOCIN 30 UNITS in LACTATED RINGER'S 1,000 ML IV SCH (06:03)
[2022-06-21 07:12] LABS: Basophils # (auto) 0.01 K/uL (0-0.2); Basophils % (auto) 0.1 %; Eosinophils % (auto) 0.9 %; Hematocrit (blood only) 33.7 % (37.0-47.0); Hemoglobin 11.5 g/dl (12.0-16.0); Immature Granulocytes # (auto) 0.07 K/uL (0.01-0.20); Immature Granulocytes % (auto) 0.6 %; Lymphocytes # (auto) 1.64 K/uL (1.2-3.4); Lymphocytes % (auto) 14.3 %; Mean Corpuscular Hemoglobin 30.9 pg (25.0-34.0); Mean Corpuscular Hgb Conc 34.1 g/dL (32.0-36.0); Mean Corpuscular Volume 90.6 fL (80.0-100.0); Neutrophils # (auto) 8.83 K/uL (1.40-6.50); Neutrophils % (auto) 77.1 %; Platelet Count 165 K/uL (130-400); RDW Coefficient of Variation 12.6 % (11.5-14.5); RDW Standard Deviation 41.1 fL (36.4-46.3); Red Blood Count 3.72 M/uL (4.20-5.40); White Blood Count 11.45 K/ul (4.8-10.8)
--- NOTE | 2022-06-21 08:54 | Obstetrical Progress Note ---
Date of Service June 21, 2022 Assessment & Plan Admission and Anticipated Discharge Date Admission Date: June 18, 2022 Subjective Patient is seen and examined. She feels well, no complaints. Pain is under control with oral meds. Has not been OOB yet Tolerating regular diet with out N&V Flatus + BM neg Bleeding is minimal No fever/ chills/ CP/ SOB/ N&V/ Leg pain Breast and bottle feeding without problems Lab Results 06/18/22 06/18/22 06/20/22 Range/Units 09:11 Unknown 15:47 WBC 9.19 (4.8-10.8) K/ul RBC 4.44 (4.20-5.40) M/uL Hgb 13.6 (12.0-16.0) g/dl Hct 39.8 (37.0-47.0) % MCV 89.6 (80.0-100.0) fL MCH 30.6 (25.0-34.0) pg MCHC 34.2 (32.0-36.0) g/dL RDW Std Deviation 41.7 (36.4-46.3) fL RDW Coeff of Conor 12.7 (11.5-14.5) % Plt Count 233 (130-400) K/uL MPV 10.1 (9.4-12.4) fL Immature Gran % (Auto) % Neut % (Auto) % Lymph % (Auto) % [place] % (Auto) % Eos % (Auto) % Baso % (Auto) % Neut # (Auto) (1.40-6.50) K/uL Lymph # (Auto) (1.2-3.4) K/uL [place] # (Auto) (0.11-0.59) K/uL Eos # (Auto) (0-0.50) K/uL Baso # (Auto) (0-0.2) K/uL Immature Gran # (Auto) (0.01-0.20) K/uL Cord ABG pH 7.29 (7.1-7.38) Cord ABG pCO2 55 (39.1-73.5) mmHg Cord ABG pO2 9 (4.1-31.7) mmHg Cord ABG HCO3 26 (19.7-28.5) mmol/L Cord ABG Base Excess -1.2 (-9-1.8) mEq/L Cord ABG O2 Sat < 60.0 (<60) % Cord VBG pH (7.20-7.44) Cord VBG pCO2 (30.4-57.2) mmHg Cord VBG pO2 (14.1-43.3) mmHg Cord VBG HCO3 (18.4-26.8) mmol/L Cord VBG Base Excess (-7.7-1.9) mEq/L Cord VBG O2 Sat (<68) % Blood Gas Comments INFANT A SARS-CoV-2, RNA, NAAT NEGATIVE (NEGATIVE) 06/20/22 06/21/22 Range/Units 15:47 06:58 WBC 11.45 H (4.8-10.8) K/ul RBC 3.72 L (4.20-5.40) M/uL Hgb 11.5 L (12.0-16.0) g/dl Hct 33.7 L (37.0-47.0) % MCV 90.6 (80.0-100.0) fL MCH 30.9 (25.0-34.0) pg MCHC 34.1 (32.0-36.0) g/dL RDW Std Deviation 41.1 (36.4-46.3) fL RDW Coeff of Conor 12.6 (11.5-14.5) % Plt Count 165 (130-400) K/uL MPV 10.0 (9.4-12.4) fL Immature Gran % (Auto) 0.6 % Neut % (Auto) 77.1 % Lymph % (Auto) 14.3 % [place] % (Auto) 7.0 % Eos % (Auto) 0.9 % Baso % (Auto) 0.1 % Neut # (Auto) 8.83 H (1.40-6.50) K/uL Lymph # (Auto) 1.64 (1.2-3.4) K/uL [place] # (Auto) 0.80 H (0.11-0.59) K/uL Eos # (Auto) 0.10 (0-0.50) K/uL Baso # (Auto) 0.01 (0-0.2) K/uL Immature Gran # (Auto) 0.07 (0.01-0.20) K/uL Cord ABG pH (7.1-7.38) Cord ABG pCO2 (39.1-73.5) mmHg Cord ABG pO2 (4.1-31.7) mmHg Cord ABG HCO3 (19.7-28.5) mmol/L Cord ABG Base Excess (-9-1.8) mEq/L Cord ABG O2 Sat (<60) % Cord VBG pH 7.28 (7.20-7.44) Cord VBG pCO2 53 (30.4-57.2) mmHg Cord VBG pO2 15 (14.1-43.3) mmHg Cord VBG HCO3 25 (18.4-26.8) mmol/L Cord VBG Base Excess -2.8 (-7.7-1.9) mEq/L Cord VBG O2 Sat < 60.0 (<68) % Blood Gas Comments INFANT A SARS-CoV-2, RNA, NAAT (NEGATIVE) Vital Signs Temp Pulse Resp BP Pulse Ox O2 Del Method 06/21/22 06:00 18 97 06/21/22 05:00 18 96 06/21/22 04:15 18 96 06/21/22 02:00 18 98 06/21/22 03:46 18 97 06/21/22 03:46 36.8 C 80 18 115/75 97 Room Air 06/21/22 01:00 18 100 06/21/22 00:00 18 99 06/20/22 21:00 20 99 06/20/22 23:00 20 100 06/20/22 22:30 20 99 06/20/22 22:30 36.9 C 81 20 122/74 98 Room Air Intake & Output 06/20/22 06/21/22 06/21/22 22:59 06:59 14:59 Intake Total 1003 / 2526.617 Output Total 600 / 1725 525 / 1725 Balance -600 / 801.617 478 / 801.617 Intake: IV 1003 / 2526.617 Oxytocin 30 units In Lactated 1003 / 1003 Ringer's 1,000 ml @ 125 mls/hr IV .Q8H2M [facility] Rx#:[id number] Output: Urine Amount (Catheter) 600 / 1475 525 / 1475 Torres/Indwelling 600 / 1125 525 / 1125 PE: General: Alert, orientedx3, NAD CVS: S1S2 RRR Lungs; CTAB Abd: soft, NT, ND, BS+, fundus firm, below Umbilicus Incision: Clean, dry, intact Perineum intact, Lochia rubra minimal Ext; NT, no edema AP: 21 yo s/p C Section, pod# 1 VSS Afebrile doing well Continue routine postop care Encourage ambulation, PO intake All questions were answered Results & Data ([facility]) Vital Signs (Past 12 Hours) Vital Signs Temp Pulse Resp BP Pulse Ox O2 Del Method 06/21/22 06:00 18 97 06/21/22 05:00 18 96 06/21/22 04:15 18 96 06/21/22 02:00 18 98 06/21/22 03:46 18 97 06/21/22 03:46 36.8 C 80 18 115/75 97 Room Air 06/21/22 01:00 18 100 06/21/22 00:00 18 99 06/20/22 21:00 20 99 06/20/22 23:00 20 100 06/20/22 22:30 20 99 06/20/22 22:30 36.9 C 81 20 122/74 98 Room Air
[2022-06-21] MEDS: FERROUS SULFATE 325 MG TAB PO SCH (08:59)
[2022-06-21] MEDS: PRENATAL VITAMIN 1 TAB PO SCH (08:59)
[2022-06-21] MEDS: DOCUSATE SODIUM 100 MG CAP PO SCH ×2 (08:59→20:38)
[2022-06-21] MEDS: SIMETHICONE 80 MG CHEW PO SCH ×5 (08:59→20:39)
[2022-06-21] MEDS ORDERED: ONDANSETRON INJ 2 MG/ML 2 ML VIAL IV PRN (10:08)
[2022-06-21] MEDS ORDERED: MEPERIDINE HCL 25 MG/ML CARP/VIAL IV PRN (10:09)
[2022-06-21] MEDS ORDERED: PROMETHAZINE HCL 25 MG in SODIUM CHLORIDE 0.9% 50 ML IV PRN (10:09)
[2022-06-21] MEDS ORDERED: diphenhydrAMINE Capsule 25 MG CAP PO PRN (10:09)
[2022-06-21] MEDS ORDERED: diphenhydrAMINE 50 MG/ML VIAL IV PRN (10:10)
[2022-06-21] MEDS: oxyCODONE/ACETAMINOPHEN 5mg/325mg TAB PO PRN ×3 (13:13→21:29)
[2022-06-21] MEDS ORDERED: bisacodyL 5 MG TABEC PO SCH (20:00)
[2022-06-22] MEDS: oxyCODONE/ACETAMINOPHEN 5mg/325mg TAB PO PRN ×4 (03:09→21:23)
[2022-06-22 07:01] LABS: Hematocrit (blood only) 30.7 % (37.0-47.0); Hemoglobin 10.4 g/dl (12.0-16.0)
[2022-06-22] MEDS: PRENATAL VITAMIN 1 TAB PO SCH (07:11)
[2022-06-22] MEDS: FERROUS SULFATE 325 MG TAB PO SCH (07:12)
[2022-06-22] MEDS: DOCUSATE SODIUM 100 MG CAP PO SCH ×2 (07:12→20:09)
[2022-06-22] MEDS: SIMETHICONE 80 MG CHEW PO SCH ×4 (07:12→20:09)
--- NOTE | 2022-06-22 10:40 | Obstetrical Progress Note ---
Date of Service June 22, 2022 Subjective Ambulation: ambulating normally Voiding: no voiding problems Passing Gas:: Yes Diet Tolerance:: regular diet Lochia:: Small Feeding Type:: breast feeding Current Pain Level(1-10): 0 doing well Physical Exam Constitutional WD/WN, vitals as above Gastrointestinal (Abdomen) Inspection/Auscultation: abdomen normal to inspection and + abdominal surgical incision incision c/d/i Musculoskeletal Extremities: extremities normal to inspection Skin no rashes, warm and dry Neurologic patellar DTR's 2+ bilat, sensation intact Psychiatric A+Ox3, euthymic affect Results & Data ([facility]) Vital Signs (Past 12 Hours) Vital Signs Temp Pulse Resp BP Pulse Ox O2 Del Method 06/22/22 08:26 36.7 C 88 16 112/71 97 Room Air 06/21/22 23:10 36.8 C 88 20 106/77 99 Room Air Laboratory Results 06/18/22 06/18/22 06/20/22 09:11 Unknown 15:47 WBC 9.19 RBC 4.44 Hgb 13.6 Hct 39.8 MCV 89.6 MCH 30.6 MCHC 34.2 RDW Std Deviation 41.7 RDW Coeff of Conor 12.7 Plt Count 233 MPV 10.1 Immature Gran % (Auto) Neut % (Auto) Lymph % (Auto) [place] % (Auto) Eos % (Auto) Baso % (Auto) Neut # (Auto) Lymph # (Auto) [place] # (Auto) Eos # (Auto) Baso # (Auto) Immature Gran # (Auto) Cord ABG pH 7.29 Cord ABG pCO2 55 Cord ABG pO2 9 Cord ABG HCO3 26 Cord ABG Base Excess -1.2 Cord ABG O2 Sat < 60.0 Cord VBG pH Cord VBG pCO2 Cord VBG pO2 Cord VBG HCO3 Cord VBG Base Excess Cord VBG O2 Sat Blood Gas Comments INFANT A SARS-CoV-2, RNA, NAAT NEGATIVE 06/20/22 06/21/22 06/22/22 15:47 06:58 06:27 WBC 11.45 H RBC 3.72 L Hgb 11.5 L 10.4 L Hct 33.7 L 30.7 L MCV 90.6 MCH 30.9 MCHC 34.1 RDW Std Deviation 41.1 RDW Coeff of Conor 12.6 Plt Count 165 MPV 10.0 Immature Gran % (Auto) 0.6 Neut % (Auto) 77.1 Lymph % (Auto) 14.3 [place] % (Auto) 7.0 Eos % (Auto) 0.9 Baso % (Auto) 0.1 Neut # (Auto) 8.83 H Lymph # (Auto) 1.64 [place] # (Auto) 0.80 H Eos # (Auto) 0.10 Baso # (Auto) 0.01 Immature Gran # (Auto) 0.07 Cord ABG pH Cord ABG pCO2 Cord ABG pO2 Cord ABG HCO3 Cord ABG Base Excess Cord ABG O2 Sat Cord VBG pH 7.28 Cord VBG pCO2 53 Cord VBG pO2 15 Cord VBG HCO3 25 Cord VBG Base Excess -2.8 Cord VBG O2 Sat < 60.0 Blood Gas Comments INFANT A SARS-CoV-2, RNA, NAAT
[2022-06-22] MEDS ORDERED: bisacodyL 10 MG SUPP PR PRN (16:17)
[2022-06-23] MEDS: oxyCODONE/ACETAMINOPHEN 5mg/325mg TAB PO PRN ×3 (04:03→12:28)
[2022-06-23] MEDS: FERROUS SULFATE 325 MG TAB PO SCH (08:47)
[2022-06-23] MEDS: PRENATAL VITAMIN 1 TAB PO SCH (08:47)
[2022-06-23] MEDS: SIMETHICONE 80 MG CHEW PO SCH ×2 (08:47→12:28)
[2022-06-23] MEDS: DOCUSATE SODIUM 100 MG CAP PO SCH (08:47)
--- NOTE | 2022-06-23 10:37 | Obstetrical Progress Note ---
Date of Service June 23, 2022 Assessment & Plan (1) delivery delivered: POD #3 pt doing well d/c home with instrcutions Results & Data ([facility]) Vital Signs (Past 12 Hours) Vital Signs Temp Pulse Resp BP Pulse Ox O2 Del Method 06/23/22 08:00 36.9 C 74 18 120/81 100 Room Air 06/23/22 04:00 36.7 C 76 18 132/85 100 Room Air
== END 2022-06-23 14:25 | disposition home or self-care (01) | DRG 787 ==
LOC: 4S1 07:39 → 4E2 06-20 19:08

== ENCOUNTER 2023-12-17 00:37 | Inpatient (IN) ==
[2023-12-17 01:35] LABS: Hematocrit (blood only) 33.9 % (37.0-47.0); Mean Corpuscular Hgb Conc 32.4 g/dL (32.0-36.0); Mean Corpuscular Volume 83.3 fL (80.0-100.0); Mean Platelet Volume 10.2 fL (9.4-12.4); Platelet Count 238 K/uL (130-400); RDW Coefficient of Variation 13.3 % (11.5-14.5); RDW Standard Deviation 39.9 fL (36.4-46.3); Red Blood Count 4.07 M/uL (4.20-5.40); White Blood Count 9.37 K/ul (4.8-10.8)
--- NOTE | 2023-12-17 01:52 | History & Physical Report ---
Date of Service December 17, 2023 Assessment & Plan (1) Premature rupture of membranes: Plan: 22 yo at 39.1 wks with PROM , h/o prior Csection 18 months ago, unfavorable cervix, high presenting part, no signs of labor VSS Afebrile FHR reassuring, Patient declines repeat now. She desires expectant management for now until morning to see whether she will go into labor by herself. Patient understand the risks and benefits of TOLAC/ versus repeat C- section, she read the form with detailed information from [employer] and signed an informed consent. She politely declines augmentation with oxytocin either. Plan to admit, monitor, labs, expectant management per patient request and reevaluate in the morning. (2) History of section complicating : (3) Short interval between pregnancies affecting , antepartum: History of Present Illness Chief Complaint: leakage of fluid Primary Care Provider: NO PCP patient is a 22-year-old -0-1-1 at 39 weeks and 1 day gestation who started to feel leakage of fluid around 11:50 PM last night, she has been leaking since then. It has been clear, no blood. She has mild irregular contractions but they are not painful. She reports good movements. Her has been complicated by, 1. History of prior for IUGR failure to descend and category 2 strip, on June 2022, has scheduled for tomorrow 2. close interval, 3. History of IUGR, growth ultrasounds have been normal by M patient states she was discouraged from repeat due to close interval and she decided for a repeat which was scheduled for tomorrow. She states she wants to talk about TOLAC/. I discussed the risks and benefits of each and gave her the form which was released by [facility]. the patient and her partner read the form in details and I answered their all quest ions and they want to think about it and then decide Allergies Allergy/AdvReac Type Severity Reaction Status Date / Time ibuprofen [From Motrin] Allergy Unknown Verified 12/17/23 01:05 Penicillins Allergy Hives Verified 12/17/23 01:05 Home Medications Medication Instructions Recorded Confirmed Type prenat.vits,jesús,[id number] 1 tab PO DAILY 06/18/22 12/17/23 History Patient History Medical History Anorexia nervosa in remission Anxiety and depression Surgical History Family history of complication of anesthesia Multiple family members maternal side "have woken up during their surgeries" Nausea and vomiting after administration of anesthetic agent 06/20/22 [facility], "vomiting during whole " Hx of section 06/20/22 [facility] Family History Other FHx: pancreatic cancer Nausea and vomiting after administration of anesthetic agent Social History Smoking Status: Never smoker Second Hand Exposure: Yes (hx); Do You Dip or Chew Tobacco: No; Hx Alcohol Use: No Hx Substance Use: No Preferred Language: Faroese Communication Ability: Effective Nursing Service Administrator Required: No Beliefs That Will Affect Care: None marital status: Single Current Living Situation: Significant Other Current Living Situation Comment: partner and toddler Other Information That Helps Us Care for You: No Safety Concerns: Feels Safe At This Time Assistive Devices: None Review of Systems as per Subjective / HPI Physical Exam Constitutional: WD/WN, vitals as above well developed, well nourished and comfortable Gastrointestinal (Abdomen): normal bowel sounds, soft, nontender, no he patosplenomegaly Genitourinary: normal external appearance OB Exam Abdomen: + vertex Manual OB Exam: + cervical dilation (0), + cervical effacement 30% and + station high (POSTERIOR) OB Exam Monitor Tracing: + external uterine monitor used and + category I Bed side US vertex Results & Data Vital Signs (Past 12 Hours) Vital Signs Temp Pulse Resp BP 12/17/23 00:56 36.8 C 82 18 132/77 (1) Premature rupture of membranes PROM onset of labor timing: onset of labor within 24 hours of rupture PROM gestational age: full term Qualified Code(s): O42.02 - Full-term premature rupture of membranes, onset of labor within 24 hours of rupture
[2023-12-17] MEDS: BUTORPHANOL TARTRATE 2 MG/ML VIAL IV PRN (02:55)
--- OUTSIDE RECORDS SUMMARY | 2023-12-17 07:15 | External Medical Summary | Summary of Care ---
Author Name Unknown Organization [facility] Address [address] [place] [address] Phone [phone] Care Team Providers Care Ophthalmic Lens Inspector Name Role Phone Nayla Alicea MD Primary Care Provider [phone] Reason for Visit * Reason Comments [facility] Return Encounter Details Date Type Department Care Team (Late st Contact Info) Description 11/13/2023 11:30 AM EDT Office Visit Gynecology/Obstetri seferino Myers [address] [facility] [place] [address] Puja Harman PA-C [address] [place] [address] Nurse Alka Myers [facility] Return Dia [address] [place] [address] Supervision of high risk in third trimester*; History of section complicating ; History of prior with IUGR ; BMI less than 19,adult; Abnormal thyroid blood test Allergies Active Allergy Reactions Criticality Noted Date Comments Ibuprofen 12/11/2021 Penicillins 12/11/2021 documented as of this encounter (statuses as of 11/13/2023) Medications Medication Sig Dispensed Refills Start Date End Date Status 28-0.8 MG Oral Tablet Take by mouth. Active Breast PumpIndications:Breast feeding status of mother Pump daily while breast feeding. Z39.1, АННА 12/23/23 1 Each 09/10/2023 Active documented as of this encounter (statuses as of 11/13/2023) Active Problems Problem Noted Date Diagnosed Date with 12 completed weeks gestation 11/2023 Abnormal thyroid blood test 06/11/2023 Overview: Low TSH 0.2 with normal free T4 with NOB Endocrinology recommended repeat TSH/T4 in second trimester Lab Results Component Value Date/Time TSH - [facility] 0.26 (L) 06/14/2023 03:06 PM T4, Free 05/15/2023 0.9 - 1.7 ng/dL 1.5 History of section complicating pregnan cy 05/15/2023 Overview: June 2022: primary due to intolerance and failure to progress 2023 Plan: undecided, but most likely TOLAC Last Assessment & Plan: CONSIDERATIONS: Reviewed that patients with a history of a previous section are at increased risk in subsequent pregnancies for abnormal placentation (such as previa, acreta, increta, percreta), uterine rupture, abdominal adhesions (which increases the associated surgical risks of injury to adjacent organs, length of procedure, and increased blood loss), and other incision-related complications (such as hernia, rectal muscle diastasis). These risks increase linearly with the number of previous sections performed. carries a lower risk of hemorrhage and infection than delivery. It also generally involves a shorter hospital admission as well as a less painful and shorter recovery than delivery. The risks of uterine rupture are increased for at 0.2 to 1.5% with prior low transverse uterine incision and up to 10% with prior classical incision. In the event of uterine rupture there is a risk of maternal injury that may require a blood transfusion, hysterectomy, damage to nearby organs and even maternal . There is also a 10 to 25% risk of significant adverse sequelae which includes or permanent injury in 05/999 's. The chances of successful increases with any prior successful deliveries. RECOMMENDATIONS: Routine repeat section is recommended to be scheduled between 39-40 weeks gestation. As per [place]'s 2010 practice bulletin (reaffirmed 2015) regarding offering of trial of labor after delivery, the risks and benefits should be discussed between the patient and her primary OB provider and ultimately agreed upon between these parties and documented as such. Any attempt at should be undertaken at a facility capable of emergent delivery. The following factors are NOT contraindications to offering a trial of labor after delivery: a. Two prior deliveries b. Suspected macrosomia c. Gestation beyond 40 weeks d. History of previous low vertical uterine incision e. Twin gestation (if only one prior ) f. One delivery with an unknown uterine scar type (unless there is a high clinical suspicion of a previous classical uterine incision) Induction of labor for maternal or indications is an option for women undergoing Trial of Labor After . Misoprostol should not be used for cervical ripening or induction of labor. History of prior with IUGR 02/2024 Overview: 06/2022: G2 Severe FGR diagnosed, with EFW at 2%ile Induced at 37w3d due to growth restriction MFM u/s every 4-6 weeks after 24w Last Assessment & Plan: Low risk NIPT and msAFP appreciated. Reviewed plan to follow growth serially to r/o FGR, especially as the third trimester approaches. NSTs will be needed if FGR is diagnosed. BMI less than 19,adult 05/15/2023 Overview: Pre gravid BMI: 17.8 Patient does have history of eating disorder Has been weight consistent for past 2 years Last Assessment & Plan: Reviewed that women with a pre- BMI less than 18.5 have an increased risk for delivery and for growth restriction. Recommended weight gain in is 28-40 lbs. Maternal Medicine ultrasound for anatomy at 19-20 weeks. We do not recommend routine ultrasound for growth as fundal heights should correlate well in this patient population Health counseling 05/15/2023 Overview: Problem Action Taken Date entered Entered by Date resolved Depression Denies any current symptoms 05/15/2023 Angelina Felix RN 05/15/2023 Lack of transportation County transportation discussed 05/15/2023 Angelina Felix RN 05/15/2023 Poor dental hygiene Has not been to dentist since 2019 encouraged 05/15/2023 Angelina Felix RN 05/15/2023 nutrition [facility] discussed. Aware of program but most likely will decline 05/15/2023 Angelina Felix RN 05/15/2023 Problem Action Taken Date entered Entered by Date resolved Current needs or questions Patient denies having any current needs or questions 07/15/2023 Estefani Chandler RN 07/15/2023 Problem Action Taken Date entered Entered by Date resolved Current needs or questions Patient denies having any current needs or questions 08/12/2023 Estefani Chandler RN 08/12/2023 Problem Action Taken Date entered Entered by Date resolved Current needs or questions Patient denies having any current needs or questions 09/10/2023 Estefani Chandler RN 09/10/2023 Problem Action Taken Date entered Entered by Date resolved Current needs or questions Patient denies having any current needs or questions 09/24/2023 Angelina Felix RN 09/24/2023 Racing heart beat 01/19/2022 Overview: See 01/26/22 Cardiology consult. ECHO and Zio Patch monitory x 7 days ordered , supervision, high-risk 12/22/2021 Overview: Primary 06/20/2022 EDC 12/23/2023 Estimated Date of Delivery Comme nts Yes 12/23/2023 Based on Ultraso und documented as of this encounter (statuses as of 11/13/2023) Resolved Problems Problem Noted Date Diagnosed Date Resolved Date Supervision of normal 05/15/2023 07/15/2023 Food insecurity 08/13/2022 05/16/2023 Overview: Per [facility] Protocol IUGR (intrauterine growth re striction) affecting care of mother 04/27/2022 07/04/2022 Overview: 06/14/22 AC noted at <1% with overall EFW of 2146 g at 2%. SYLVIE 17.7 cm. Umbilical artery Doppler normal. Cephalic presentation. BPP 12/11. M recommends delivery at 37 weeks Last Assessment & Plan: Severe FGR diagnosed today, with EFW at 2%ile. Doppler remains normal with BPP 12/11. Delivery is currently planned for 39 weeks, however, in light of severe FGR would recommend delivery at 37 weeks. We discussed that FGR infants born at 37 weeks are more likely to experience difficulty in feeding and keeping warm, which may result in hypoglycemia and the need for pediatric care. As the delivery will be at 37+ weeks, FLM steroids are not indicated. Message will be sent to OB team to help facilitate IOL next week. Questions answered. History of palpitations 02/05/2022 03/0 05/2022 Overview: Reports diagnosed with slight mitral valve prolapse (2017) and had been placed on daily propranolol treatment for episodes of racing heart/palpitations, especially when changing positions. Of note, this all occurred while she was being treated for anorexia and at her lowest weight. S/p Cardiology referral outpatient. Zio patch results appear reasurring and normal echo. Last Assessment & Plan: She met with cardiology on 01/26/22 with plans for a Zio patch and echocardiogram. No medications clinically indicated at this time per that assessment. Underweight 02/05/2022 07/04/2022 Overview: Low pregravid BMI: 17 Last Assessment & Plan: She presents for a anatomy survey. She has a history of a low pre-gravid BMI, history of anorexia, history of palpitations (prior treatment with propranolol, none currently), and a questionable family history for the FOB's side of a neural tube defect. Please see the recent consultation visit from 02/05/22 for details. Labs reviewed: -- cffDNA low risk for aneuploidy We reviewed the results of today's ultrasound. The estimated weight is appropriate for gestational age. The visualized anatomy is unremarkable in appearance. The amniotic fluid amount appears normal. We discussed that ultrasound is not able to identify all anomalies, but it is reassuring that no anomalies were seen today. Family history of spina bifida 02/05/2022 07/04/2022 Overview: ? Hx of spina bifida in FOB sister, though he felt it developed after and related to an infection. . Recommend MSAFP screening between 15-22w Last Assessment & Plan: DISCUSSION: 1. The incidence of spina bifida is < 05/999. 2. Most cases of spina bifida are sporadic. 3. First degree relatives have an increased risk of the condition compared with individuals in the general population. Risk if one parent is affect is 4-5% RECOMMENDATIONS: 1. Recommend MSAFP screening between 15-22w History of anorexia nervosa 01/19/2022 07/04/2022 Overview: S/p inpatient treatment in 2018. Reports overall doing well. When she has depressed moods, does typically shut down and avoid eating. Though she understands she is and needs the caloric intake. States she has support through her boyfriend. Is newer to the area so does not have friends close by. Last Assessment & Plan: Mental health disorders CONSIDERATIONS: Untreated maternal mental health disorders may be associated with an increased risk of multiple poor obstetrical outcomes including miscarriages, low weight, and delivery. Women with such history are at risk for recurrence both during and/or the period. CONSIDERATIONS: Mental illness can and should be treated during when the benefits of treatment outweigh potential risks. Referral to behavioral health services as clinically indicated. Patient educated on resources available within the [facility] system. Studies of first-trimester SSRI exposure do not demonstrate consistent data to support an increased risk for structural malformations. Anti-anxiety or depression medications have been associated with transient effects (withdrawal syndrome). Medication exposure during f irst trimester of 01/19/2022 07/04/2022 Overview: Used to take propranolol PRN. Not currently on medications. Last Assessment & Plan: If medications are indicated, have provided safety profile for both propanolol and metoprolol below. Propranolol - Not expected to increase the risk of congenital malformations. Can be associated with growth restriction. Metoprolol - Not expected to increase the risk of defects. May be associated with growth restriction, though studies are conflicting. Health counseling 12/26/2021 07/04/2022 Overview: Problem Action Taken Date entered Entered by Date resolved Need for baby supplies Distribute cribs letter Refer to local support centers 12/22/2021 Lalit Gr RN 12/22/21 Need for food assistance referred to [facility] and local food mon[place] 12/22/2021 Lalit Gr RN 12/22/21 Poor dental hygiene encourage routine brushing and flossing and referal to local dental clinic that accepts [place] insurances 12/22/2021 Lalit Gr RN 12/22/21 education 1st trimester education given 12/22/2021 Lalit Gr RN 12/22/21 .1st have you cut down with your smoking Yes have you quit Yes have you seen a history card clerk No have you seen a social media marketing manager No are you receiving counseling No have you received dental care during your No are you enrolled in WIC No do you receive food stamps or singleton assistance No 12/22/2021 Lalit Gr RN 12/22/21 Problem Action Taken Date entered Entered by Date resolved Current needs or questions Patient denies having any current needs or questions 01/19/2022 Angelina Felix RN 01/19/2022 Problem Action Taken Date entered Entered by Date resolved Need for food assistance breast pump letter sent 02/16/2022 Estefani Arriaga RN 02/16/22 Problem Action Taken Date entered Entered by Date resolved Education 3rd trimester Education 04/11/2022 Estefani Chandler RN 04/11/2022 Problem Action Taken Date entered Entered by Date resolved Current needs or questions Patient denies having any current needs or questions 04/25/2022 Angelina Felix RN 04/25/2022 Problem Action Taken Date entered Entered by Date resolved Current needs or questions Patient denies having any current needs or questions 05/24/2022 Estefani Chandler RN 05/24/2022 Problem Action Taken Date entered Entered by Date resolved Current needs or questions Patient denies having any current needs or questions 06/07/2022 Angelina Felix RN 06/07/2022 Problem Action Taken Date entered Entered by Date resolved Discussed Post visit and setting up cutting supervisor Will schedule PPV 06/13/2022 Estefani Chandler RN 06/13/2022 Problem Action Taken Date entered Entered by Date resolved Current needs or questions Patient denies having any current needs or questions 07/30/2022 Estefani Chandler RN 07/30/2022 Problem Action Taken Date entered Entered by Date resolved Post education Education given 07/30/2022 Estefani Chandler RN 07/30/2022 documented as of this encounter (statuses as of 11/13/2023) Immunizations Name Administration Dates Next Due TDAP (age 10 and older)(Boostrix) 09/24/2023,11/2021 documented as of this encounter Social History Tobacco Use Types Packs/Day Years Used Date Smoking Tobacco: Never Smokeless Tobacco: Never Alcohol Use Standard Drinks/Week Comments Not Currently 0 (1 standard drink = 0.6 oz pur e alcohol) Hunger Vital Sign Answer Date Recorded Within the past 12 months, y ou worried that your food would run out before you got the money to buy more. Never true 05/01/20 23 Within the past 12 months, t he food you bought just didn't last and you didn't have money to get more. Never true 05/01/2023 Norwell Depression Scale Answer Date Recorded [place] Depression Scale Total 1 05/15/2023 The thought of harming myself has occurred to me . Never 05/15/2023 Childcare Answer Date Recorded Do you feel overwhelmed with taking care of a child, family member or friend? No 05/01/2023 Does your family need help f inding childcare? (Household - for ages 0-17 years) Not on file 05/01/2023 Clothing Answer Date Recorded Have you been unable to get clothing when it was really needed? No 05/01/2023 Is your family able to get c lothes or diapers when needed? (Household - for ages 0-17 years) Not on file 05/01/2023 Personal Safety Answer Date Recorded Do you feel unsafe or have concerns for your saf ety? No 05/01/2023 Do you have concerns for you r family's safety? (Household - for ages 0-17 years) Not on file 05/01/2023 Utilities Answer Date Recorded Do you have trouble paying y our heating, water, or electric bill? No 05/01/2023 Is your family able to pay t he heat, water, or electric bill? (Household - for ages 0-17 years) Not on file 05/01/2023 Does your family have access to good internet? (Household - for ages 0-17 years) Not on file 05/01/2023 Employment Status Answer Date Recorded Are you unemployed or without regular income? Ye s 05/01/2023 Does the household have a re gular source of income? (Household - for ages 0-17 years) Not on file 05/01/2023 Social Connections Answer Date Recorded How often do you feel lonely or isolated from th ose around you? Rarely 05/01/2023 Financial Resource Strain Answer Date R ecorded Do you have any trouble payi ng for your medications, or do you think you might in the future? No 05/01/2023 Does your family have troubl e paying for medicine? (Household - for ages 0-17 years) Not on file 05/01/2023 Transportation Needs Answer Date Record ed READ ONLY Do you have troubl e getting a ride to medical visits or work? Often True 05/01/2023 Does your family have a hard time getting a ride to doctors visits? (Household - for ages 0-17 years) Not on file 05/01/2023 Has lack of transportation k ept you from medical appointments, meetings, work, or from getting things needed for daily living? Check all that apply. (Adult - for ages 18 years and over) Not on file 05/01/2023 Do you (or your family) have trouble finding or paying for a ride (transportation)? (Household - for ages 0-17 years) Not on file 05/01/2023 Housing Stability Answer Date Recorded Do you currently live in a s helter or have no steady place to sleep at night? No 05/01/2023 READ ONLY Do you think you a re at risk of becoming homeless? No 05/01/2023 Does your family worry about paying for your home or becoming homeless? (Household - for ages 0-17 years) Not on file 1 07/02/2022 Are you homeless or worried that you might be in the future? (Adult - for ages 18 years and over) Not on file Are you (or your family) barbara eless or worried that you might be in the future? (Household - for ages 0-17 years) Not on file Food Insecurity Answer Date Recorded Do you need food for this week? No 05/01/2023 Are you able to get enough f ood for your family? (Household - for ages 0-17 years) Not on file 05/01/2023 Does your family need food t his week? (Household - for ages 0-17 years) Not on file 05/01/2023 Do you always have enough fo od for your family? (Household - for ages 0-17 years) Not on file 05/01/2023 Estimated Date of Delivery Comme nts Yes 12/23/2023 Based on Ultraso und Sex and Gender Information Value Date Recorded Sex Assigned at Female 12/22/2021 1:53 PM EDT Gender Identity Female 12/22/2021 1:53 PM EDT Sexual Orientation Straight 12/22/2021 1: 53 PM EDT Job Start Date Occupation Industry Not on file Not on file Not on file documented as of this encounter Last Filed Vital Signs Vital Sign Reading Time Taken Comments Blood Pressure 98/58 11/13/2023 11:44 AM EDT Pulse - - Temperature - - Respiratory Rate - - Oxygen Saturation - - Inhaled Oxygen Concentration - - Weight 66.8 kg (147 lb 3.2 oz) 11/13/2023 11:44 AM EDT Height - - Body Mass Index 23.76 10/28/2023 2:44 PM EDT documented in this encounter Progress Notes * Puja Harman PA-C - 11/13/2023 11:54 AM EDT 34w2d MFM scan 10/24/2023: EFW 1781 g at 41%ile. Has appointment back 11/28/2023 for continued growth u/s secondary to history of IUGR. Message in on 11/03 that she feels she is losing mucous plug. Denies LOF, VB, or contractions. Havingsome discharge, no large gush of fluid. Last intercourse 4 days ago. Would like pelvic exam. Plans repeat C/S, Abby made aware to schedule pt at [id number]. Pelvic exam: External genitalia and vagina anatomy within normal limits, No significant vulvar lesions, No significant vaginal discharge, discharge present physiologic in appearence, Cervix normal inappearance without discharge, cervix visually closed, no pooling at cervical os and no blood in vaginal vault. Nitrazine test negative. No lof with valsalva. Hand Brush Filler Documentation Provider requested review rn. Name of review rn: ROSARIO Boyer RTC in 2 weeks Puja Harman PA-C * Meredith Orellana MED ASSIST - 11/13/2023 11:44 AM EDT 34w2d Denies vaginal bleeding/rom + movements + nausea ? Possible loss of mucus plug Muscle spasm/cramping Pressure in vaginal area when walking Requesting cervical check documented in this encounter Nursing Notes * Estefani Chandler RN - 11/13/2023 1:10 PM EDT Patient seen by [facility] Piling Cutter. Patient denies any questions or concerns. Estefani Chandler RN documented in this encounter Plan of Treatment Upcoming Encounters Date Type Department Care Team (Late st Contact Info) Description 11/28/2023 8:45 AM EDT Imaging Maternal Medicine Imaging, [address] [place] [phone] 11/28/2023 1:30 PM EDT Office Visit Gynecology/Obstetrics Chantelle Mo[place] [address] Kaitlin Greenberg CNM [address] [place] [address] Nurse [facility] Return Dia [address] [place] [id number] 12/03/2023 1:30 PM EDT Office Visit Gynecology/Obstetrics Chantelle Myers [address] [place] [address] Annette Daugherty CRNP [address] [place] [address] Nurse [facility] Return Dia [address] [place] [address] 12/11/2023 2:00 PM EDT Office Visit Gynecology/Obstetrics Chantelle Myers [address] [place] [address] Shayy Goodwin CRNP [address] [place] [address] Nurse [facility] Return [facility] [address] [place] [address] Health Maintenance Due Date Last Done Comments Depression Screening 2012 HPV (Gardasil) Vaccine (1 - 3-dose series) 12/21/2015 Hepatitis B Vaccine (1 of 3 - 19+ 3-dose series) 12/21/2019 COVID-19 Vaccine ( - 2022-2 4 season) 2023 Influenza Vaccine (FLU shot) (#1) 2024 Gonorrhea / Chlamydia Screen 05/15/202402/2024, 12/22/2021 Pap Smear 12/22/2024 12/22/2021 DTaP,Tdap,and Td Vaccines (3 - Td or Tdap) 09/23/2033 09/24/2023, 04/11/2022 MENINGOCOCCAL (MENACTRA/MENVEO) Aged Out No longer eligible b ased on patient's age to complete this topic Pneumococcal Vaccine: Pediatrics (0 to 5 Years) and At-Risk Patients (6 to 64 Years) Aged Out No longer eligible b ased on patient's age to complete this topic documented as of this encounter Medical Devices Not on filedocumented as of this encounter Visit Diagnoses Diagnosis Supervision of high risk in third trimester- Primary Unspecified high-risk History of section complicating Previous delivery, unspecified as to episode of care or not applicable History of prior with IUGR BMI less than 19,adult Body Mass Index less than 19, adult Abnormal thyroid blood test Nonspecific abnormal results of thyroid function study documented in this encounter Care Teams Ophthalmic Lens Inspector Relationship Specialty Start [place] [id number] [address] PCP - General 03/12/22 documented as of this encounter
--- OUTSIDE RECORDS SUMMARY | 2023-12-17 07:15 | External Medical Summary ---
Author Name Unknown Address Unknown Organization K01:[facility] [address] [place] [address] Laboratory Report Ordering Provider Test Date Status CAPO MORALES 11/28/2023 10:03:18 Final Observation Date Value Abnormality Reference (Units ) Status Streptococcus agalactiae DNA [Presence] in Specimen by RAJ with probe detection 11/28/2023 10:03:18 Negative Negative Final No Group B Streptococcus det ected by culture-enhanced PCR (amplified probe). GBS GBS[facility] - [facility] 11/28/2023 10:03:18 0.0 Final GBS SPCCT - [facility] 11/28/2023 10:03:18 32.3 Final Performing Location [facility] [place] - [facility] [address]
--- OUTSIDE RECORDS SUMMARY | 2023-12-17 07:15 | External Medical Summary | Summary of Care ---
Author Name Unknown Organization [facility] Address [address] [place] [address] Phone [phone] Care Team Providers Care Nitrocellulose Operator Name Role Phone Nayla Alicea MD Primary Care Provider [phone] Reason for Visit * Reason Onset Date Comments Appointment 12/02/2023 Encounter Details Date Type Department Care Team ([facility] st Contact Info) Description 12/02/2023 Telephone Gynecology/Obstetrics [facility] [address] [place], [place] [id number] Services, Scheduling [address] [place] [address] Appointment Allergies Active Allergy Reactions Criticality Noted Date Comments Ibuprofen 12/11/2021 Penicillins 12/11/2021 documented as of this encounter (statuses as of 12/02/2023) Medications Medication Sig Dispensed Refills Start Date End Date Status 28-0.8 MG Oral Tablet Take by mouth. Active Breast PumpIndications:Breast feeding status of mother Pump daily while breast feeding. Z39.1, АННА 12/23/23 1 Each 09/10/2023 Active documented as of this encounter (statuses as of 12/02/2023) Active Problems Problem Noted Date Diagnosed Date [...] scheduled between 39-40 weeks gestation. As per [employer]'s 2010 practice [...] encouraged 05/15/2023 Angelina Felix RN 05/15/2023 nutrition [facility] discussed. Aware of program but most [...] as of this encounter (statuses as of 12/02/2023) Resolved Problems Problem Noted Date Diagnosed Date Resolved Date Supervision of normal 05/15/2023 07/15/2023 Food insecurity 08/13/2022 05/16/2023 Overview: Per [facility] Protocol IUGR (intrauterine growth re striction) affecting care of mother 04/27/2022 07/04/2022 Overview: 06/14/22 AC noted at <1% with overall EFW of 2146 g at 2%. SYLVIE 17.7 cm. Umbilical artery Doppler normal. Cephalic presentation. BPP 8/8. [facility] recommends delivery at 37 weeks Last Assessment & Plan: Severe FGR diagnosed today, with EFW at 2%ile. Doppler remains normal with BPP 8/8. Delivery is currently planned for 39 weeks, [...] Reports diagnosed with slight mitral valve prolapse (2018) and had been placed on daily propranolol [...] Patient educated on resources available within the [employer] system. Studies of first-trimester SSRI exposure do [...] 12/22/21 Need for food assistance referred to [facility] and local food [employer] 12/22/2021 Lalit Gr RN 12/22/21 Poor dental hygiene encourage routine brushing and flossing and referal to local dental clinic that accepts [place] insurances 12/22/2021 Lalit Gr RN 12/22/21 education 1st trimester education given 12/22/2021 Lalit Gr RN 12/22/21 .1st have you cut down with your smoking Yes have you quit Yes have you seen a nut culler No have you seen a social security specialist No are you receiving counseling No have you received dental care during your No are you enrolled in [facility] No do you receive food stamps or [...] resolved Discussed Post visit and setting up board winder Will schedule PPV 06/13/2022 Estefani Chandler RN 06/13/2022 Problem Action Taken Date entered Entered by Date resolved Current needs or questions Patient denies having any current needs or questions 07/30/2022 Estefani Chandler RN 07/30/2022 Problem Action Taken Date entered Entered by Date resolved Post education Education given 07/30/2022 Estefani Chandler RN 07/30/2022 documented as of this encounter (statuses as of 12/02/2023) Immunizations Name Administration Dates Next Due TDAP [...] the money to buy more. Never true 11/28/19 24 Within the past 12 months, t he food you bought just didn't last and you didn't have money to get more. Never true 11/28/2023 [place] Depression Scale Answer Date Recorded [place] Depression Scale Total 0 11/28/2023 The thought of harming myself has occurred to me . Never 11/28/2023 Childcare Answer Date Recorded Do you feel overwhelmed with taking care of a child, family member or friend? No 11/28/2023 Does your family need help f inding childcare? (Household - for ages 0-17 years) Not on file 11/28/2023 Clothing Answer Date Recorded Have you been unable to get clothing when it was really needed? No 11/28/2023 Is your family able to get c lothes or diapers when needed? (Household - for ages 0-17 years) Not on file 11/28/2023 Personal Safety Answer Date Recorded Do you feel unsafe or have concerns for your saf ety? No 11/28/2023 Do you have concerns for you r family's safety? (Household - for ages 0-17 years) Not on file 11/28/2023 Utilities Answer Date Recorded Do you have trouble paying y our heating, water, or electric bill? No 11/28/2023 Is your family able to pay t he heat, water, or electric bill? (Household - for ages 0-17 years) Not on file 11/28/2023 Does your family have access to good internet? (Household - for ages 0-17 years) Not on file 11/28/2023 Employment Status Answer Date Recorded Are you unemployed or without regular income? No 11/28/2023 Does the household have a re gular source of income? (Household - for ages 0-17 years) Not on file 11/28/2023 Social Connections Answer Date Recorded How often do you feel lonely or isolated from th ose around you? Never 11/28/2023 Financial Resource Strain Answer Date R ecorded Do you have any trouble payi ng for your medications, or do you think you might in the future? No 11/28/2023 Does your family have troubl e paying for medicine? (Household - for ages 0-17 years) Not on file 11/28/2023 Transportation Needs Answer Date Record ed READ ONLY Do you have troubl e getting a ride to medical visits or work? Often True 11/28/2023 Does your family have a hard time getting a ride to doctors visits? (Household - for ages 0-17 years) Not on file 11/28/2023 Has lack of transportation k ept you from medical appointments, meetings, work, or from getting things needed for daily living? Check all that apply. No 11/28/2023 Do you (or your family) have trouble finding or paying for a ride (transportation)? (Household - for ages 0-17 years) Not on file 11/28/2023 Housing Stability Answer Date Recorded Do you currently live in a s helter or have no steady place to sleep at night? No 11/28/2023 READ ONLY Do you think you a re at risk of becoming homeless? No 11/28/2023 Does your family worry about paying for your home or becoming homeless? (Household - for ages 0-17 years) Not on file 0 11/28/2023 Are you homeless or worried that you might be in the future? No 11/28/2023 Are you (or your family) barbara eless or worried that you might be in the future? (Household - for ages 0-17 years) Not on file Food Insecurity Answer Date Recorded Do you need food for this week? No 11/28/2023 Are you able to get enough f ood for your family? (Household - for ages 0-17 years) Not on file 11/28/2023 Does your family need food t his week? (Household - for ages 0-17 years) Not on file 11/28/2023 Do you always have enough fo od for your family? (Household - for ages 0-17 years) Not on file 11/28/2023 Estimated Date of Delivery Comme nts Yes 12/23/2023 Based on Ultraso und Sex and Gender Information Value Date Recorded Sex Assigned at Female 12/22/2021 1:53 PM EDT Gender Identity Female 12/22/2021 1:53 PM EDT Sexual Orientation Straight 12/22/2021 1: 53 PM EDT Job Start Date Occupation Industry Not on file Not on file Not on file documented as of this encounter Miscellaneous Notes * Telephone Encounter - Shelley Keyes OSA - 12/02/2023 11:39 AM EDT Patient calling to reschedule her 12/02 appointment due to work and transportation issues. She is currently at 37 weeks. She was looking at Tuesday 12/05, she is wide open this day. Please assist. Thank you. documented in this encounter Plan of Treatment Upcoming Encounters Date Type Department Care Team (Late st Contact Info) Description 12/06/2023 8:15 AM EDT Office Visit Gynecology/Obstetrics Chantelle Myers [address] [place] [address] Annette Daugherty CRNP [address] [place] [address] Nurse [facility] Return Dia [address] [place] [address] 12/11/2023 2:00 PM EDT Office Visit Gynecology/Obstetrics ElbertGelyluis Myers [address] [place] [address] Shayy Goodwin CRNP [address] [place] [address] Nurse [facility] Return Dia [address] [place] [address] 12/26/2023 11:30 AM EDT Office Visit Gynecology/Obstetrics Chantelle Myers [address] [place] [address] Shayy Goodwin CRNP [address] [place] [address] Health Maintenance Due Date Last Done Comments Depression Screening 2012 HPV (Gardasil) Vaccine (1 - 3-dose series) 12/21/2015 Hepatitis B Vaccine (1 of 3 - 19+ 3-dose series) 12/21/2019 COVID-19 Vaccine (1 - 2022-2 4 season) 2023 Influenza Vaccine [...] Not on filedocumented as of this encounter Care Teams Nitrocellulose Operator Relationship Specialty Start [place] [id number] [address] PCP - General 03/12/22 documented as of this encounter
--- OUTSIDE RECORDS SUMMARY | 2023-12-17 07:15 | External Medical Summary | Summary of Care ---
Author Name Unknown Organization [facility] Address [address] [place] [address] Phone [phone] Care Team Providers Care Sampler Ovens Name Role Phone Nayla Alicea MD Primary Care Provider [phone] Encounter Details Date Type Department Care Team (Late st Contact Info) Description 11/28/2023 8:45 AM EDT Office Visit [facility], [address] [address] Jenny Patino, DO [address], [place] [id number] History of prior with IUGR *; 36 weeks gestation of ; Ultrasound for screening for growth restriction Allergies Active Allergy Reactions Criticality Noted Date Comments Ibuprofen 12/11/2021 Penicillins 12/11/2021 documented as of this encounter (statuses as of 11/28/2023) Medications Medication Sig Dispensed Refills Start Date End Date Status 28-0.8 MG Oral Tablet Take by mouth. Active Breast PumpIndications:Breast feeding status of mother Pump daily while breast feeding. Z39.1, АННА 12/23/23 1 Each 09/10/2023 Active documented as of this encounter (statuses as of 11/28/2023) Active Problems Problem Noted Date Diagnosed Date with 12 completed weeks gestation 11/2023 Abnormal thyroid blood test 06/11/2023 Overview: Low TSH 0.2 with normal free T4 with NOB Endocrinology recommended repeat TSH/T4 in second trimester Lab Results Component Value Date/Time TSH - [facility] 0.26 (L) 06/14/2023 03:06 PM T4, Free [...] scheduled between 39-40 weeks gestation. As per [employer]'s 2010 practice [...] encouraged 05/15/2023 Angelina Felix RN 05/15/2023 nutrition [facility] discussed. Aware of program but most likely [...] as of this encounter (statuses as of 11/28/2023) Resolved Problems Problem Noted Date Diagnosed Date Resolved Date Supervision of normal 05/15/2023 07/15/2023 Food insecurity 08/13/2022 05/16/2023 Overview: Per [facility] Protocol IUGR (intrauterine growth re striction) affecting care of mother 04/27/2022 07/04/2022 Overview: 06/14/22 AC noted at <1% with overall EFW of 2146 g at 2%. SYLVIE 17.7 cm. Umbilical artery Doppler normal. Cephalic presentation. BPP 8/8. [facility] recommends delivery at 37 weeks Last [...] Patient educated on resources available within the [employer] system. Studies of first-trimester SSRI exposure do [...] 12/22/21 Need for food assistance referred to [facility] and local food [employer] 12/22/2021 Lalit Gr RN 12/22/21 Poor dental hygiene encourage routine brushing and flossing and referal to local dental clinic that accepts [place] insurances 12/22/2021 Lalit Gr RN 12/22/21 education 1st trimester education given 12/22/2021 Lalit Gr RN 12/22/21 .1st have you cut down with your smoking Yes have you quit Yes have you seen a outside sales inspector No have you seen a manager social No are you receiving counseling No have you received dental care during your No are you enrolled in [facility] No do you receive food stamps or [...] resolved Discussed Post visit and setting up gas plumber Will schedule PPV 06/13/2022 Estefani Chandler RN 06/13/2022 Problem Action Taken Date entered Entered by Date resolved Current needs or questions Patient denies having any current needs or questions 07/30/2022 Estefani Chandler RN 07/30/2022 Problem Action Taken Date entered Entered by Date resolved Post education Education given 07/30/2022 Estefani Chandler RN 07/30/2022 documented as of this encounter (statuses as of 11/28/2023) Immunizations Name Administration Dates Next Due TDAP [...] money to buy more. Never true 11/28/19 Within the past 12 months, t he food you bought just didn't last and you didn't have money to get more. Never true 11/28/2023 [place] Depression Scale Answer Date Recorded [place] Depression Scale Total 1 05/15/2023 The thought [...] on file documented as of this encounter Progress Notes * Jenny Patino DO - 11/28/2023 10:32 AM EDT Nehal presented today at 36w3d for an ultrasound for the following indications: History of prior with IUGR 36 weeks gestation of Ultrasound for screening for growth restriction Ultrasound summary: Patient presented at 36w 3d for growth assessment. Normal growth with EFW 2922 g at 52%ile. Normal SYLVIE at 11.4 cm. Cephalic presentation. I reviewed the ultrasound images. Nehal was given the opportunity to meet with me if she had any questions. Please refer to the ultrasound report for additional details about today's ultrasound examination. RECOMMENDATIONS: Follow up with MFM for ultrasound as clinically indicated. See prior formal MFM consultation note. Thank you for allowing us to participate in the care of this patient. Please call with any questions. Jenny Patino DO 11/28/2023 10:32 AM documented in this encounter Plan of Treatment Upcoming Encounters Date Type Department Care Team (Late st Contact Info) Description 12/03/2023 1:30 PM EDT Office Visit Gynecology/Obstetrics Chantelle Myers [address] [place] [address] Annette Daugherty CRNP [address] [place] [address] Nurse [facility] Return Dia [address] [place] [address] 12/11/2023 2:00 PM EDT Office Visit Gynecology/Obstetrics Chantelle Myers [address] [place] [address] Shayy Goodwin CRNP [address] [place] [address] Nurse [facility] Return Dia [address] [place] [address] 12/26/2023 11:30 AM EDT Office Visit Gynecology/Obstetrics Chantelle Myers [address] [place] [address] Shayy Goodwin CRNP [address] [place] [address] Health Maintenance Due Date Last Done Comments [...] as of this encounter Visit Diagnoses Diagnosis History of prior with IUGR - Primary 36 weeks gestation of state, incidental Ultrasound for screening for growth restriction screening for growth retardation using ultrasonics documented in this encounter Care Teams Sampler Ovens Relationship Specialty [place] [address] [place] [address] [address] PCP - General 03/12/22 documented as of this encounter
--- OUTSIDE RECORDS SUMMARY | 2023-12-17 07:15 | External Medical Summary | Summary of Care ---
Author Name Unknown Organization [facility] Address [address] [place] [address] Phone [phone] Care Team Providers Care Professional Employer Consultant Name Role Phone Nayla Alicea MD Primary Care Provider [phone] Reason for Visit * Reason Comments Return Visit Encounter Details Date Type Department Care Team (Late st Contact Info) Description 12/11/2023 2:00 PM EDT Office Visit Gynecology/Obstetri seferino Myers [address] [facility] [place] [address] Shayy Goodwin CRNP [address] [place] [address] Nurse Alka [facility] Return Dia [address] [facility] [place] [address] Supervision of high risk in third trimester*; History of section complicating ; History of prior with IUGR ; BMI less than 19,adult; Abnormal thyroid blood test Allergies Active Allergy Reactions Criticality Noted Date Comments Ibuprofen 12/11/2021 Penicillins 12/11/2021 documented as of this encounter (statuses as of 12/11/2023) Medications Medication Sig Dispensed Refills Start Date End Date Status 28-0.8 MG Oral Tablet Take by mouth. Active Breast PumpIndications:Breast feeding status of mother Pump daily while breast feeding. Z39.1, АННА 12/23/23 1 Each 09/10/2023 Active documented as of this encounter (statuses as of 12/11/2023) Active Problems Problem Noted Date Diagnosed Date with 12 completed weeks gestation 11/2023 Abnormal thyroid blood test 06/11/2023 Overview: Low TSH 0.2 with normal free T4 with NOB Endocrinology recommended repeat TSH/T4 in second trimester Lab Results Component Value Date/Time TSH - [facility] 0.26 (L) 06/14/2023 03:06 PM T4, Free [...] scheduled between 39-40 weeks gestation. As per [employer]'s 2010 practice [...] encouraged 05/15/2023 Angelina Felix RN 05/15/2023 nutrition [facility] discussed. Aware of program but [...] or questions 09/24/2023 Angelina Felix RN 09/24/2023 Problem Action Taken Date entered Entered by Date resolved Current needs or questions Patient denies having any current needs or questions 12/11/2023 Estefani Chandler RN 12/11/2023 Racing heart beat 01/19/2022 Overview: See 01/26/22 Cardiology consult. ECHO and Zio Patch monitory x 7 days ordered , supervision, high-risk 12/22/2021 Overview: Primary 06/20/2022 EDC 12/23/2023 Estimated Date of Delivery Comme nts Yes 12/23/2023 Based on Ultraso und documented as of this encounter (statuses as of 12/11/2023) Resolved Problems Problem Noted Date Diagnosed Date Resolved Date Supervision of normal 05/15/2023 07/15/2023 Food insecurity 08/13/2022 05/16/2023 Overview: Per [facility] Protocol IUGR (intrauterine growth re striction) affecting care of mother 04/27/2022 07/04/2022 Overview: 06/14/22 AC noted at <1% with overall EFW of 2146 g at 2%. SYLVIE 17.7 cm. Umbilical artery Doppler normal. Cephalic presentation. BPP 8/8. [facility] recommends delivery at 37 weeks Last Assessment [...] next week. Questions answered. History of palpitations 02/05/202205/2022 Overview: Reports diagnosed with slight mitral valve [...] Patient educated on resources available within the [employer] system. Studies of first-trimester SSRI exposure do [...] 12/22/21 Need for food assistance referred to [facility] and local food [place] 12/22/2021 Lalit Gr RN 12/22/21 Poor dental hygiene encourage routine brushing and flossing and referal to local dental clinic that accepts [place] insurances 12/22/2021 Lalit Gr RN 12/22/21 education 1st trimester education given 12/22/2021 Lalit Gr RN 12/22/21 .1st have you cut down with your smoking Yes have you quit Yes have you seen a director of contracts No have you seen a social worker masters No are you receiving counseling No have you received dental care during your No are you enrolled in [place] No do you receive food stamps or [...] having any current needs or questions 04/25/2022 Angeilna Felix RN 04/25/2022 Problem Action Taken Date [...] resolved Discussed Post visit and setting up shank cutter Will schedule PPV 06/13/2022 Estefani Chandler RN 06/13/2022 Problem Action Taken Date entered Entered by Date resolved Current needs or questions Patient denies having any current needs or questions 07/30/2022 Estefani Chandler RN 07/30/2022 Problem Action Taken Date entered Entered by Date resolved Post education Education given 07/30/2022 Estefani Chandler RN 07/30/2022 documented as of this encounter (statuses as of 12/11/2023) Immunizations Name Administration Dates Next Due TDAP [...] money to get more. Never true 11/28/2023 [place] Depression Scale Answer Date Recorded [place] Depression Scale Total 0 11/28/2023 The thought [...] Sign Reading Time Taken Comments Blood Pressure 102/64 12/11/2023 2:04 PM EDT Pulse - - Temperature - - Respiratory Rate - - Oxygen Saturation - - Inhaled Oxygen Concentration - - Weight 69.4 kg (153 lb) 12/11/2023 2:04 PM EDT Height 167.6 cm (5' 6") 12/11/2023 2:04 PM EDT Body Mass Index 24.69 12/11/2023 2:04 PM EDT documented in this encounter Progress Notes * Shayy Goodwin CRNP - 12/11/2023 2:13 PM EDT 38w2d Not sleeping well, having some pelvic pain. Baby is moving, no contractions or bleeding. Repeat c/s 12/17. NICK Tovar * Denise Nassar LPN - 12/11/2023 2:04 PM EDT 38w2d Denies any concerns documented in this encounter Nursing Notes * Estefani Chandler, RN - 12/11/2023 2:08 PM EDT Patient seen by [facility] Dry Press Operator Helper. Patient denies any questions or concerns. Estefani Chandler RN documented in this encounter Plan of Treatment Upcoming Encounters Date Type Department Care Team (Late st Contact Info) Description 12/26/2023 11:30 AM EDT Office Visit Gynecology/Obstetrics Chantelle Myers [address] [place] [address] Shayy Goodwin CRNP [address] [place] [address] Health Maintenance Due Date Last Done Comments [...] study documented in this encounter Care Teams Professional Employer Consultant Relationship Specialty [place] [address] [place] [address] [address] PCP - General 03/12/22 documented as of this encounter
--- OUTSIDE RECORDS SUMMARY | 2023-12-17 07:15 | External Medical Summary | Summary of Care ---
Author Name Unknown Organization [facility] Address [address] [place] [address] Phone [phone] Care Team Providers Care Ditch Repairer Name Role Phone Nayla Alicea MD Primary Care Provider [phone] Reason for Visit * Reason Comments Healthy Beginnings Return Pre-Op Testing Encounter Details Date Type Department Care Team ([facility] st Contact Info) Description 11/28/2023 9:00 AM EDT Office Visit Gynecology/Obstetri seferino Myers [address] [facility] [place] [address] Diamond Elizabeth MD [address] [place] [address] Nurse Alka Myers Beginnings Return Dia 132 [facility] [place] [address] 36 weeks gestation of *; Supervision of high risk in third trimester; History of section complicating ; History of prior with IUGR ; Supervision of high risk , antepartum; BMI less than 19,adult; Abnormal thyroid blood [...] scheduled between 39-40 weeks gestation. As per [employer]'s 2010 practice [...] encouraged 05/15/2023 Angelina Felix RN 05/15/[address] [facility] discussed. Aware of program but most likely will decline 05/15/2023 Angleina Felix RN 05/15/2023 Problem Action Taken Date [...] artery Doppler normal. Cephalic presentation. BPP 8/8. [facility] recommends delivery at 37 weeks Last [...] Patient educated on resources available within the [employer] system. Studies of first-trimester SSRI exposure do [...] 12/22/21 Need for food assistance referred to [facility] and local food monte[place] 12/22/2021 Lalit Gr RN 12/22/21 Poor dental hygiene encourage routine brushing and flossing and referal to local dental clinic that accepts [place] insurances 12/22/2021 Lalit Gr RN 12/22/21 education 1st trimester education given 12/22/2021 Lalit Gr RN 12/22/21 .1st have you cut down with your smoking Yes have you quit Yes have you seen a corporate safety coordinator No have you seen a nephrology social worker No are you receiving counseling No have [...] any current needs or questions 05/24/2022 Estefani Chnadler RN 05/24/2022 Problem Action Taken Date entered Entered by Date resolved Current needs or questions Patient denies having any current needs or questions 06/07/2022 Angelina Felix RN 06/07/2022 Problem Action Taken Date entered Entered by Date resolved Discussed Post visit and setting up construction stonemason Will schedule PPV 06/13/2022 Estefain Chandler RN 06/13/2022 Problem Action Taken Date [...] money to get more. Never true 11/28/2023 [place] Depression Scale Answer Date Recorded [place] Depression Scale Total 1 05/15/2023 The thought [...] 11/28/2023 Does the household have a re lar source of income? (Household - for ages [...] Sign Reading Time Taken Comments Blood Pressure 106/70 11/28/2023 9:24 AM EDT Pulse - - Temperature 37.1 C (98.8 F) 11/28/2023 9:24 AM ED T Respiratory Rate - - Oxygen Saturation - - Inhaled Oxygen Concentration - - Weight 69.4 kg (153 lb) 11/28/2023 9:24 AM EDT Height 167.6 cm (5' 6") 11/28/2023 9:24 AM EDT Body Mass Index 24.69 11/28/2023 9:24 AM EDT documented in this encounter Progress Notes * Diamond Elizabeth MD - 11/28/2023 9:00 AM EDT H+P 11/28/23 Nehal Lee is a 22 year old at 36w3d by 8 week ultrasound with Estimated Date of Delivery: 12/23/23 . She just saw MFM earlier this morning for growth ultrasound. Presents to clinic for return OB at 36weeks. Is joined in the room with father of the baby and toddler boy. Denies any contractions, leaking of fluid or vaginal bleeding. Notes good movement of baby girl. Start she felt like she was losing chunks of her mucus plug Denies any headache, blurry vision, right upper quadrant epigastric pain. Did have a headache last week [place] Depression Scale: [place] Depression Scale Total: 0 [place] suicide question and score: Score of 3 = Yes, quite often. Score of 2 = Sometimes. Score of 1 = Hardly ever The thought of harming myself has occurred to me.: 0 Her record is reviewed. CURRENT PROBLEM LIST: Patient Active Problem List Diagnosis Date Noted with 12 completed weeks gestation [Z3A.12] 06/12/2023 Abnormal thyroid blood test [R79.89] 06/11/2023 Low TSH 0.2 with normal free T4 with NOB Endocrinology recommended repeat TSH/T4 in second trimester Lab Results Component Value Date/Time TSH - [facility] 0.26 (L) 06/14/2023 03:06 PM T4, Free 05/15/2023 0.9 - 1.7 ng/dL 1.5 History of section complicating [O34.219] 05/15/2023: primary due to intolerance and failure to progress 2023 Plan: undecided, but most likely TOLAC History of prior with IUGR [Z87.59] 05/15/202306/2022: G2 Severe FGR diagnosed, with EFW at 2%ile Induced at 37w3d due to growth restriction MFM u/s every 4-6 weeks after 24w BMI less than 19,adult [Z68.1] 05/15/2023 Pre gravid BMI: 17.8 Patient does have history of eating disorder Has been weight consistent for past 2 years Health counseling [Z71.9] 05/15/2023 Problem Action Taken Date entered Entered by Date resolved Depression Denies any current symptoms 05/15/2023 Angelina Felix RN 05/15/2023 Lack of transportation County transportation discussed 05/15/2023 Angelina Felix RN 05/15/2023 Poor dental hygiene Has not been to dentist since 2019 encouraged 05/15/2023 Angelina Felix RN 05/15/[address] [facility] discussed. Aware of program but most likely will decline 05/15/2023 Angelina Felix RN05/15/2023 Problem Action Taken Date entered Entered by [...] Angelina Felix RN 09/24/2023 Racing heart beat [R00.0] 01/19/2022 See 01/26/22 Cardiology consult. ECHO and Zio Patch monitory x 7 days ordered , supervision, high-risk [O09.90] 12/22/2021 Primary 06/20/2022 EDC 12/23/2023 OBSTETRIC HISTORY: OB History 3 Para 1 Term 1 0 AB 1 Living 1 SAB 0 IAB 1 Ectopic 0 Multiple 0 Live Births 1 Obstetric Comments 2022, 2023: FOB#1: Anmol, 38yo, healthy, no other children PAST MEDICAL HISTORY: Past Medical History: Diagnosis Date 2015 Relapse in 2019 Gastroesophageal reflux disease without esophagitis Tachycardia RECENT IMMUNIZATIONS: Most Recent Immunizations Administered Date(s) Administered TDAP (age 10 and older)(Boostrix) 09/24/2023 PAST SURGICAL HISTORY: Past Surgical History: Procedure Laterality Date [place] DELIVERY ONLY FAMILY HISTORY: Family History Problem Relation Name Age of Onset Hypertension Mother Pancreatic cancer Father Thyroid Disorder Brother Spina bifida Aunt (Paternal) ALLERGIES: Review of patient's allergies indicates: Allergen Reactions Ibuprofen Penicillins SOCIAL HISTORY: Social History Socioeconomic History Marital status: Single Tobacco Use Smoking status: Never Smokeless tobacco: Never Substance and Sexual Activity Alcohol use: Not Currently Drug use: Not Currently Comment: 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 (Adult - for ages 18 years and over): No Food Insecurity: No Food Insecurity (05/01/2023) Food Insecurity Do you need food for this week? (Adult - for ages 18 years and over): No Transportation Needs: Unmet Transportation Needs (05/01/2023) Transportation Needs Do you have trouble getting a ride to medical visits or work? (Adult - for ages 18 years and over):Often True Social Connections: Socially Integrated (05/01/2023) Social Connections How often do you feel lonely or isolated from those around you? (Adult - for ages 18 years and over): Rarely Housing Stability: Low Risk (05/01/2023) Housing Stability Do you currently live in a skilled nursing or have no steady place to sleep at night? (Adult - for ages 18 years and over): No Do you think you are at risk of becoming homeless? (Adult - for ages 18 years and over): No Labs: Lab Results CBC HGB: HGB (g/dL) Date Value 09/24/2023 12.3 HCT: HCT (%) Date Value 09/24/2023 36.9 Platelets: PLT (K/uL) Date Value 09/24/2023 272 Type and Screen ABO/RHD: O positive Group B Strep Culture/PCR pending Rubella IGG Antibody Rubella IgG Antibody (no units) Date Value 05/15/2023 Positive (A) One Hour Gestational Glucose, 50G Latest Reference Range & Units 09/24/23 16:02 50-g Gestational Glucose, 1 Hour 70 - 129 mg/dL 85 HIV AG&AB Screen w/Confirmation Latest Reference Range & Units 05/15/23 13:21 HIV Antigen & Antibody Negative Negative Hep B Surface Antigen Hepatitis B Surface Antigen (no units) Date Value 05/15/2023 Negative Hepatitis C Antibody Hepatitis C Antibody (no units) Date Value 05/15/2023 Negative Chlamydia Amplified Chlamydia Trachomatis Result (no units) Date Value 05/15/2023 Negative Neisseria Amplified Neisseria Gonorrhoeae Result (no units) Date Value 05/15/2023 Negative PHYSICAL EXAM: LMP 02/22/2023 Comment: nursing There is no height or weight on file to calculate BMI. Neuro: A&O X3. Lungs: No resp distress, CTA Heart: Regular rate & rhythm Abdomen:Gravid, non-tender External genitalia: Normal anatomy, no lesions or erythema GBS collected Extremities: No deep calf tenderness bilaterally. No pathologic edema. [employer] Documentation Provider requested all round logger. Name of all round logger: Parker Long LPN A: 22 year old at 36w3d by 8 week ultrasound with Estimated Date of Delivery: 12/23/23 Elective repeat Previous history of x1 History of intrauterine growth restriction BMI less than 19 prior to with 17kg weight gain P: Plan for scheduled on December 18, 2023 unless indicated sooner Labor and preeclampsia warnings reviewed OR orders placed, 2 g Ancef Patient voiced her understanding and agreement with the plan. All questions were answered in the room Diamond Elizabeth MD, Ph.D., [address] [address] [address] [place] [address] 11/28/2023 9:47 AM This chart was completed in part utilizing [employer] Speech Voice Recognition Software. Grammatical errors, random word insertions, prounoun errors, and incomplete sentences are an occasional consequence of this system due to software limitations, ambient noise, and hardware issues. Any formal questions or concerns about the content, text, or information contained within the body of this dictation should be directly addressed to the provider for clarification. documented in this encounter Nursing Notes * Samantha Arriaga LPN - 11/28/2023 9:24 AM EDT 36w3d GBS today Pre-op. documented in this encounter Plan of Treatment Upcoming Encounters Date Type Department Care Team (Late st Contact Info) Description 12/03/2023 1:30 PM EDT Office Visit Gynecology/Obstetrics [facility] [address] [place] [address] BackAnnette robles CRNP [address] [place] [address] Nurse Louis Healthy Beginnings Return Dia [address] [place] [address] 12/11/2023 2:00 PM EDT Office Visit Gynecology/Obstetrics Chantelle Myers [address] [place] [address] Shayy Goodwin CRNP [address] [place] [address] Nurse Louis [facility] Begin[facility] Return Dia [address] [place] [address] 12/26/2023 11:30 AM EDT Office Visit Gynecology/Obstetrics Chantelle Myers [address] [place] [address] Shayy Goodwin CRNP [address] [place] [address] Pending Results Name Type Priority Associated Diagnoses Date /Time GROUP B STREP CULTURE/PCR Lab Routine 36 weeks gestation of 11/28/2023 10:03 AM EDT Scheduled Orders Name Type Priority Associated Diagnoses Orde r Schedule GROUP B STREP CULTURE/PCR Lab Routine 36 weeks gestation of Expected: 11/28/2023, Expires: 11/27/2024 Health Maintenance Due Date Last Done Comments [...] as of this encounter Visit Diagnoses Diagnosis 36 weeks gestation of - Primary state, incidental Supervision of high risk in third trimester Unspecified high-risk History of section complicating Previous delivery, unspecified as to episode of care or not applicable History of prior with IUGR Supervision of high risk , antepartum BMI less than 19,adult Body Mass Index less than 19, adult Abnormal thyroid blood test Nonspecific abnormal results of thyroid function study documented in this encounter Care Teams Ditch Repairer Relationship Specialty Start [place] [address] [address] PCP - General 03/12/22 documented as of this encounter
--- OUTSIDE RECORDS SUMMARY | 2023-12-17 07:15 | External Medical Summary | Summary of Care ---
Author Name Unknown Organization [facility] Address [address] [place] [address] Phone [phone] Care Team Providers Care Religion Department Chair Name Role Phone Nayla Alicea MD Primary Care Provider [phone] Reason for Visit * Reason Comments Healthy Beginnings Return Pre-Op Testing Encounter Details Date Type Department Care Team ([facility] st Contact Info) Description 11/28/2023 9:00 AM EDT Office Visit Gynecology/Obstetri seferino Myers [address] [facility] [place] [address] Diamond Elizabeth MD [address] [place] [address] Nurse Alka Myers Beginnings Return Dia 132 [facility] [place] [address] 36 weeks gestation of *; Supervision of [...] scheduled between 39-40 weeks gestation. As per [employer]'s 2010 practice [...] encouraged 05/15/2023 Angelina Felix RN 05/15/2023 nutrition [facility] discussed. Aware of program but most [...] artery Doppler normal. Cephalic presentation. BPP 8/8. [facility] recommends delivery at 37 weeks Last [...] Patient educated on resources available within the [employer] system. Studies of first-trimester SSRI exposure do [...] 12/22/21 Need for food assistance referred to [facility] and local food monte[place] 12/22/2021 Lalit Gr RN 12/22/21 Poor dental hygiene encourage routine brushing and flossing and referal to local dental clinic that accepts [place] insurances 12/22/2021 Lalit Gr RN 12/22/21 education 1st trimester education given 12/22/2021 Lalit Gr RN 12/22/21 .1st have you cut down with your smoking Yes have you quit Yes have you seen a telephone triage nurse No have you seen a child protective services social worker No are you receiving counseling [...] resolved Discussed Post visit and setting up executive officer special warfare team Will schedule PPV 06/13/2022 Estefani Chandler RN [...] money to get more. Never true 11/28/2023 [place] Depression Scale Answer Date Recorded [place] Depression Scale Total 1 05/15/2023 The thought [...] pain. Did have a headache last week [place] Depression Scale: [place] Depression Scale Total: 0 [place] suicide question and score: Score of 3 [...] to dentist since 2019 encouraged 05/15/2023 Angelina Felxi RN 05/15/2023 nutrition [facility] discussed. Aware of program but most [...] HISTORY: Past Surgical History: Procedure Laterality Date [place] DELIVERY ONLY FAMILY HISTORY: Family History Problem [...] Stability Do you currently live in a assisted or have no steady place to sleep [...] deep calf tenderness bilaterally. No pathologic edema. [employer] Documentation Provider requested shake loader. Name of shake loader: Parker Long LPN A: 22 year old [...] in the room Diamond Elizabeth MD, Ph.D., [address] [address] [address] [place] [address] 11/28/2023 9:47 AM This chart was completed in part utilizing [employer] Speech Voice Recognition Software. Grammatical errors, random [...] 12/03/2023 1:30 PM EDT Office Visit Gynecology/Obstetrics [facility] [address] [place] [address] BackAnnette robles CRNP [address] [place] [address] Nurse Louis Healthy Beginnings Return Dia [address] [place] [address] 12/11/2023 2:00 PM EDT Office Visit Gynecology/Obstetrics Chantelle Myers [address] [place] [address] Shayy Goodwin CRNP [address] [place] [address] Nurse Louis [facility] Return Dia [address] [place] [address] 12/26/2023 11:30 AM EDT Office Visit Gynecology/Obstetrics Chantelle Myers [address] [place] [address] Shayy Goodwin CRNP [address] [place] [address] Pending Results Name Type Priority Associated Diagnoses [...] study documented in this encounter Care Teams Religion Department Chair Relationship Specialty [place] [address] [address] PCP - General 03/12/22 documented as of this encounter
--- OUTSIDE RECORDS SUMMARY | 2023-12-17 07:15 | External Medical Summary | Summary of Care ---
Author Name Unknown Organization [facility] Address [address] [place] [address] Phone [phone] Care Team Providers Care Almond Blancher Operator Name Role Phone Nayla Alicea MD Primary Care Provider [phone] Reason for Visit * Reason Comments Return Visit Encounter Details Date Type Department Care Team (Late st Contact Info) Description 12/06/2023 8:15 AM EDT Office Visit Gynecology/Obstetri seferino Myers [address] [facility] [place] [address] Annette Daugherty CRNP [address] [facility] [place] [address] Nurse Alka Myers Beginnings Return Dia [address] [facility] [address] Supervision of high risk in third trimester*; [...] scheduled between 39-40 weeks gestation. As per [employer]'s 2010 practice [...] encouraged 05/15/2023 Angelina Felix RN 05/15/2023 nutrition [facility] discussed. Aware of program but [...] artery Doppler normal. Cephalic presentation. BPP 8/8. [facility] recommends delivery at 37 weeks Last [...] Patient educated on resources available within the [employer] system. Studies of first-trimester SSRI exposure do [...] 12/22/21 Need for food assistance referred to [facility] and local food mon[place] 12/22/2021 Lalit Gr RN 12/22/21 Poor dental hygiene encourage routine brushing and flossing and referal to local dental clinic that accepts [place] insurances 12/22/2021 Lalit Gr RN 12/22/21 education 1st trimester education given 12/22/2021 Lalit Gr RN 12/22/21 .1st have you cut down with your smoking Yes have you quit Yes have you seen a detasseler No have you seen a healthcare social worker No are you receiving counseling No have you received dental care during your No are you enrolled in [facility] No do you receive food [...] resolved Discussed Post visit and setting up geospatial scientist Will schedule PPV 06/13/2022 Estefani Chandler RN [...] money to get more. Never true 11/28/2023 [place] Depression Scale Answer Date Recorded [place] Depression Scale Total 0 11/28/2023 The thought [...] Sign Reading Time Taken Comments Blood Pressure 100/60 12/06/2023 8:29 AM EDT Pulse - - Temperature - - Respiratory Rate - - Oxygen Saturation - - Inhaled Oxygen Concentration - - Weight 68.9 kg (152 lb) 12/06/2023 8:29 AM EDT Height 167.6 cm (5' 6") 12/06/2023 8:29 AM EDT Body Mass Index 24.53 12/06/2023 8:29 AM EDT documented in this encounter Progress Notes * Denise Nassar LPN - 12/06/2023 8:29 AM EDT 37w4d Denies any concerns * Annette Daugherty CRNP - 12/06/2023 8:27 AM EDT 37w4d Recent u/s with MFM showing normal growth, SYLVIE. Baby moving well, no regular ctx, no leaking/bleeding. Has labor instructions, reviewed. Pt's mom is coming up from [place] to help. C/S is scheduled. 1 week return NICK Whelan documented in this encounter Nursing Notes * Estefani Chandler RN - 12/11/2023 3:28 PM EDT have you cut down with your smoking n/a have you quit n/a have you seen a detasseler no have you seen a healthcare social worker no are you receiving counseling no have you received dental care during your no are you enrolled in WIC yes do you receive food stamps or singleton assistance no Patient seen by [facility] Medicare Sales Representative. Patient denies any questions or concerns. Estefani Chandler RN documented in this encounter Plan of Treatment Upcoming Encounters Date Type Department Care Team (Late st Contact Info) Description 12/26/2023 11:30 AM EDT Office Visit Gynecology/Obstetrics Beverlyaiden Myers [address] [place] [address] Shayy Goodwin CRNP [address] [place] [address] Health Maintenance Due Date Last Done Comments [...] study documented in this encounter Care Teams Almond Blancher Operator Relationship Specialty [place] [address] [place] [address] PCP - General 03/12/22 documented as of this encounter
--- OUTSIDE RECORDS SUMMARY | 2023-12-17 07:15 | External Medical Summary | Summary of Care ---
Author Name Unknown Organization [facility] Address [address] [place] [address] Phone [phone] Care Team Providers Care Furnace Puncher Name Role Phone Nayla Alicea MD Primary Care Provider [phone] Reason for Visit * Reason Comments Return Visit Encounter Details Date Type Department Care Team (Late st Contact Info) Description 12/06/2023 8:15 AM EDT Office Visit Gynecology/Obstetri seferino Myers [address] [facility] [place] [address] Annette Daugherty CRNP [address] [facility] [place] [address] Nurse Alka Myers Beginnings Return Dia [address] [facility] [place] [address] Supervision of high risk in third trimester*; History of section complicating ; History of prior with IUGR ; BMI less than 19,adult; Abnormal thyroid blood test Allergies Active Allergy Reactions Criticality Noted Date Comments Ibuprofen 12/11/2021 Penicillins 12/11/2021 documented as of this encounter (statuses as of 12/06/2023) Medications Medication Sig Dispensed Refills Start Date End Date Status 28-0.8 MG Oral Tablet Take by mouth. Active Breast PumpIndications:Breast feeding status of mother Pump daily while breast feeding. Z39.1, АННА 12/23/23 1 Each 09/10/2023 Active documented as of this encounter (statuses as of 12/06/2023) Active Problems Problem Noted Date Diagnosed Date [...] scheduled between 39-40 weeks gestation. As per [employer]'s 2010 practice [...] encouraged 05/15/2023 Angelina Felix RN 05/15/2023 nutrition [facility] discussed. Aware of program but most likely [...] as of this encounter (statuses as of 12/06/2023) Resolved Problems Problem Noted Date Diagnosed Date [...] Patient educated on resources available within the [employer] system. Studies of first-trimester SSRI exposure do [...] 12/22/21 Need for food assistance referred to [facility] and local food monte[place] 12/22/2021 Lalit Gr RN 12/22/21 Poor dental hygiene encourage routine brushing and flossing and referal to local dental clinic that accepts [place] insurances 12/22/2021 Lalit Gr RN 12/22/21 education 1st trimester education given 12/22/2021 Lalit Gr RN 12/22/21 .1st have you cut down with your smoking Yes have you quit Yes have you seen a outside sales account representative No have you seen a protective services social worker No are you [...] resolved Discussed Post visit and setting up drugless physician Will schedule PPV 06/13/2022 Etsefani Chandler RN 06/13/2022 Problem Action Taken Date entered Entered by Date resolved Current needs or questions Patient denies having any current needs or questions 07/30/2022 Estefani Chandler RN 07/30/2022 Problem Action Taken Date entered Entered by Date resolved Post education Education given 07/30/2022 Estefani Chandler RN 07/30/2022 documented as of this encounter (statuses as of 12/06/2023) Immunizations Name Administration Dates Next Due TDAP [...] money to get more. Never true 11/28/2023 [place] Depression Scale Answer Date Recorded [place] Depression Scale Total 0 11/28/2023 The thought [...] No 11/28/2023 Does the household have a [facility] source of income? (Household - for ages [...] reviewed. Pt's mom is coming up from [place] to help. C/S is scheduled. 1 week return NICK Whelan documented in this encounter Plan of Treatment Upcoming Encounters Date Type Department Care Team (Late st Contact Info) Description 12/11/2023 2:00 PM EDT Office Visit Gynecology/Obstetrics Chantelle Pickenss [address] [place] [address] Shayy Goodwin CRNP [address] [place] [address] Nurse Louis Healthy Beginnings Return Dia [address] [place] [address] 12/26/2023 11:30 AM EDT Office Visit Gynecology/Obstetrics Chantelle Myers [address] [place] [address] Shayy Goodwin CRNP [address] [place] [address] Health Maintenance Due Date Last Done Comments [...] study documented in this encounter Care Teams Furnace Puncher Relationship Specialty [place] [address] [address] PCP - General 03/12/22 documented as of this encounter
--- OUTSIDE RECORDS SUMMARY | 2023-12-17 07:15 | External Medical Summary | Summary of Care ---
Author Name Unknown Organization [facility] Address [address] [place] [address] Phone [phone] Care Team Providers Care Licensing Registration Examiner Name Role Phone Nayla Alicea MD Primary Care Provider [phone] Reason for Visit * Reason Comments Healthy Beginnings Return Pre-Op Testing Encounter Details Date Type Department Care Team ([facility] st Contact Info) Description 11/28/2023 9:00 AM EDT Office Visit Gynecology/Obstetri seferino Myers 132 [facility] [place] [address] Diamond Elizabeth MD [address] [place] [address] Nurse Alka Myers Beginnings Return Dia 132 [facility] [place] [address] 36 weeks gestation of *; Supervision of [...] scheduled between 39-40 weeks gestation. As per [employer]'s 2010 practice [...] encouraged 05/15/2023 Angelina Felix RN 05/15/2023 nutrition [facility] discussed. Aware of program but most [...] artery Doppler normal. Cephalic presentation. BPP 8/8. [facility] recommends delivery at 37 weeks Last [...] Patient educated on resources available within the [employer] system. Studies of first-trimester SSRI exposure do [...] Refer to local support centers 12/22/2021 Lalit rG RN 12/22/21 Need for food assistance referred to [facility] and local food mon[place] 12/22/2021 Lalit Gr RN 12/22/21 Poor dental hygiene encourage routine brushing and flossing and referal to local dental clinic that accepts [place] insurances 12/22/2021 Lalit Gr RN 12/22/21 education 1st trimester education given 12/22/2021 Lalit Gr RN 12/22/21 .1st have you cut down with your smoking Yes have you quit Yes have you seen a quill winder No have you seen a renal social worker No are you receiving counseling [...] resolved Discussed Post visit and setting up auto body mechanic Will schedule PPV 06/13/2022 Estefani Chandler RN [...] money to get more. Never true 11/28/2023 [place] Depression Scale Answer Date Recorded [place] Depression Scale Total 1 05/15/2023 The thought [...] pain. Did have a headache last week [place] Depression Scale: [place] Depression Scale Total: 0 [place] suicide question and score: Score of 3 [...] encouraged 05/15/2023 Angelina Felix RN 05/15/2023 nutrition [facility] discussed. Aware of program but most [...] HISTORY: Past Surgical History: Procedure Laterality Date [place] DELIVERY ONLY FAMILY HISTORY: Family History Problem [...] Stability Do you currently live in a intermediate or have no steady place to sleep [...] deep calf tenderness bilaterally. No pathologic edema. Human Resources Operations Specialist Documentation Provider requested accounts payable analyst. Name of accounts payable analyst: Parker Long LPN A: 22 year old [...] in the room Diamond Elizabeth MD, Ph.D., [address] [address] [address] [facility] [place] [address] 11/28/2023 9:47 AM This chart was completed in part utilizing [employer] Speech Voice Recognition Software. Grammatical errors, random [...] 12/03/2023 1:30 PM EDT Office Visit Gynecology/Obstetrics [facility] [address] [facility] [place] [address] BackAnnette robles CRNP [address] [place] [address] Nurse Louis Healthy Beginnings Return Dia [address] [place] [address] 12/11/2023 2:00 PM EDT Office Visit Gynecology/Obstetrics Chantelle Myers [address] [place] [address] Shayy Goodwin CRNP [address] [place] [address] Nurse Louis Healthy Beginnings Return Dia [address] [place] [address] 12/26/2023 11:30 AM EDT Office Visit Gynecology/Obstetrics Chantelle Myers [address] [place] [address] Shayy Goodwin CRNP [address] [address] Scheduled Orders Name Type Priority Associated Diagnoses [...] study documented in this encounter Care Teams Licensing Registration Examiner Relationship Specialty [place] [address] [address] PCP - General 03/12/22 documented as of this encounter
--- OUTSIDE RECORDS SUMMARY | 2023-12-17 07:15 | External Medical Summary | Summary of Care ---
Author Name Unknown Organization [facility] Address [address] [place] [address] Phone [phone] Care Team Providers Care Burner Operator Name Role Phone Nayla Alicea MD Primary Care Provider [phone] Reason for Visit * Reason Comments Healthy Beginnings Return Pre-Op Testing Encounter Details Date Type Department Care Team ([facility] st Contact Info) Description 11/28/2023 9:00 AM EDT Office Visit Gynecology/Obstetri seferino Myers 132 [facility] [place] [address] Diamond Elizabeth MD [address] [place] [address] Nurse Alka Myers Beginnings Return Dia 132 [facility] [place] [address] 36 weeks gestation of *; Supervision of [...] scheduled between 39-40 weeks gestation. As per [place]'s 2010 practice [...] artery Doppler normal. Cephalic presentation. BPP 8/8. [facility] recommends delivery at 37 weeks Last [...] Patient educated on resources available within the [employer] system. Studies of first-trimester SSRI exposure do [...] you quit Yes have you seen a marketing project coordinator No have you seen a geriatric social worker No are you receiving counseling [...] resolved Discussed Post visit and setting up plan checker Will schedule PPV 06/13/2022 Estefani Chandler RN [...] money to get more. Never true 11/28/2023 [place] Depression Scale Answer Date Recorded [place] Depression Scale Total 1 05/15/2023 The thought [...] Elizabeth MD - 11/28/2023 9:00 AM EDT 11/28/23 Nehal Lee is a 22 year [...] pain. Did have a headache last week [place] Depression Scale: [place] Depression Scale Total: 0 [place] suicide question and score: Score of 3 [...] HISTORY: Past Surgical History: Procedure Laterality Date [place] DELIVERY ONLY FAMILY HISTORY: Family History Problem [...] Stability Do you currently live in a prison or have no steady place to sleep [...] deep calf tenderness bilaterally. No pathologic edema. Dispute Specialist Documentation Provider requested electric sign wirer. Name of electric sign wirer: Parker Long LPN A: 22 year old [...] questions were answered in the room Diamond Eliazbeth MD, Ph.D., [facility] [address] [place] [address] [address] [employer] [place] [address] 11/28/2023 9:47 AM This chart was completed in part utilizing [employer] Speech Voice Recognition Software. Grammatical errors, random [...] 12/03/2023 1:30 PM EDT Office Visit Gynecology/Obstetrics [facility] [address] [place] [address] Annette Daugherty CRNP [address] [place] [address] Nurse Louis Healthy Beginnings Return Dia [address] [place] [address] 12/11/2023 2:00 PM EDT Office Visit Gynecology/Obstetrics Chantelle Myers [address] [place] [address] Shayy Goodwin CRNP [address] [place] [address] Nurse Louis Healthy Beginnings Return Dia [address] [place] [address] 12/26/2023 11:30 AM EDT Office Visit Gynecology/Obstetrics Chantelle Myers [address] [place] [address] Shayy Goodwin CRNP [address] [place] [address] Scheduled Orders Name Type Priority Associated Diagnoses [...] study documented in this encounter Care Teams Burner Operator Relationship Specialty [place] [address] [address] PCP - General 03/12/22 documented as of this encounter
--- OUTSIDE RECORDS SUMMARY | 2023-12-17 07:15 | External Medical Summary | Summary of Care ---
Author Name Unknown Organization [facility] Address [address] [place] [address] Phone [phone] Care Team Providers Care Decision Science Analyst Name Role Phone Nayla Alicea MD Primary Care Provider Reason for Visit * Reason Comments Healthy Beginnings Return Pre-Op Testing Encounter Details Date Type Department Care Team ([facility] st Contact Info) Description 11/28/2023 9:00 AM EDT Office Visit Gynecology/Obstetri seferino Myers 132 [facility] [place] [address] Diamond Elizabeth MD [address] [place] [address] Nurse Alka Myers Beginnings Return Dia 132 [facility] [place] [address] 36 weeks gestation of *; Supervision of [...] scheduled between 39-40 weeks gestation. As per [employer] [employer]'s 2010 practice [...] encouraged 05/15/2023 Angelina Felix RN 05/15/2023 nutrition [facility] discussed. Aware of program but most likely will decline 05/15/2023 Angelina Felix RN 05/15/2023 Problem Action Taken Date entered Entered by Date resolved Current needs or questions Patient denies having any current needs or questions 07/15/2023 Estefani Chandler RN 07/15/2023 Problem Action Taken Date entered Entered by Date resolved Current needs or questions Patient denies having any current needs or questions 08/12/2023 Estefain Chandler RN 08/12/2023 Problem Action Taken Date [...] artery Doppler normal. Cephalic presentation. BPP 8/8. [facility] recommends delivery at 37 weeks Last [...] Patient educated on resources available within the [employer] system. Studies of first-trimester SSRI exposure do [...] 12/22/21 Need for food assistance referred to [facility] and local food monte[place] 12/22/2021 Lalit Gr RN 12/22/21 Poor dental hygiene encourage routine brushing and flossing and referal to local dental clinic that accepts [place] insurances 12/22/2021 Lalit Gr RN 12/22/21 education 1st trimester education given 12/22/2021 Lalit Gr RN 12/22/21 .1st have you cut down with your smoking Yes have you quit Yes have you seen a program director group work No have you seen a social service worker No are you receiving counseling No [...] resolved Discussed Post visit and setting up calibration laboratory technician Will schedule PPV 06/13/2022 Estefani Chandler RN [...] encouraged 05/15/2023 Angelina Felix RN 05/15/2023 nutrition [facility] discussed. Aware of program but most [...] Stability Do you currently live in a penitentiary or have no steady place to sleep [...] deep calf tenderness bilaterally. No pathologic edema. Oil Field Technician Documentation Provider requested sourcing engineer. Name of sourcing engineer: Parker Long LPN A: 22 year old [...] in the room Diamond Elizabeth MD, Ph.D., [address] [address] [address] [employer] [place] [address] 11/28/2023 9:47 AM This chart was completed in part utilizing [employer] Speech Voice Recognition Software. Grammatical errors, random [...] 12/03/2023 1:30 PM EDT Office Visit Gynecology/Obstetrics [facility] [address] [place] [address] BackAnnette robles CRNP [address] [place] [address] Nurse Louis Healthy Beginnings Return Dia [address] [place] [address] 12/11/2023 2:00 PM EDT Office Visit Gynecology/Obstetrics Chantelle Myers [address] [place] [address] Shayy Goodwin CRNP [address] [place] [address] Nurse Louis Healthy Beginnings Return Dia [address] [place] [address] 12/26/2023 11:30 AM EDT Office Visit Gynecology/Obstetrics Chantelle Myers [address] [place] [address] Shayy Goodwin CRNP [address] [place] [address] Scheduled Orders Name Type Priority Associated Diagnoses [...] study documented in this encounter Care Teams Decision Science Analyst Relationship Specialty [place] [address] [address] PCP - General 03/12/22 documented as of this encounter
--- OUTSIDE RECORDS SUMMARY | 2023-12-17 07:15 | External Medical Summary | Summary of Care ---
Author Name Unknown Organization [facility] Address [address] [place] [address] Phone [phone] Care Team Providers Care Early Childhood Education Instructor Name Role Phone Nayla Alicea MD Primary Care Provider Reason for Visit * Reason Comments Return Visit Encounter Details Date Type Department Care Team (Late st Contact Info) Description 12/11/2023 2:00 PM EDT Office Visit Gynecology/Obstetri seferino Myers [address] [facility] [place] [address] Shayy Goodwin CRNP [address] [place] [address] Nurse Alka Myers Beginnings Return Dia [address] [place] [place] [address] Supervision of high risk in third trimester*; [...] scheduled between 39-40 weeks gestation. As per [employer] [employer]'s 2010 practice [...] encouraged 05/15/2023 Angelina Felix RN 05/15/2023 nutrition [facility] discussed. Aware of program but most [...] artery Doppler normal. Cephalic presentation. BPP 8/8. [facility] recommends delivery at 37 weeks Last [...] Patient educated on resources available within the [employer] system. Studies of first-trimester SSRI exposure do [...] 12/22/21 Need for food assistance referred to [facility] and local food mon[place] 12/22/2021 Lalit Gr RN 12/22/21 Poor dental hygiene encourage routine brushing and flossing and referal to local dental clinic that accepts [place]urances 12/22/2021 Lalit Gr RN 12/22/21 education 1st trimester education given 12/22/2021 Lalit Gr RN 12/22/21 .1st have you cut down with your smoking Yes have you quit Yes have you seen a power hair clipper No have you seen a social media developer No are you receiving counseling No have [...] resolved Discussed Post visit and setting up chief deputy sheriff Will schedule PPV 06/13/2022 Estefani Chandler RN [...] money to get more. Never true 11/28/2023 [place] Depression Scale Answer Date Recorded [place] Depression Scale Total 0 11/28/2023 The thought [...] 12/11/2023 2:08 PM EDT Patient seen by [facility] Grocery Store Courtesy Clerk. Patient denies any questions or concerns. Estefani Chandler RN documented in this encounter Plan of Treatment Upcoming Encounters Date Type Department Care Team (Late st Contact Info) Description 12/26/2023 11:30 AM EDT Office Visit Gynecology/Obstetrics Chantelle Myers [address] [place] [address] Shayy Goodwin CRNP [address] [place] [address] Health Maintenance Due Date Last Done Comments [...] study documented in this encounter Care Teams Early Childhood Education Instructor Relationship Specialty [place] [address] [address] PCP - General 03/12/22 documented as of this encounter
--- OUTSIDE RECORDS SUMMARY | 2023-12-17 07:16 | External Medical Summary | Summary of Care ---
Author Name Unknown Organization [facility] Address [address] [place] [address] Phone [phone] Care Team Providers Care Continuity Editor Name Role Phone Nayla Alicea MD Primary Care Provider [phone] Encounter Details Date Type Department Care Team (Late st Contact Info) Description 09/26/2023 11:00 AM EDT Office Visit Turbine Assembler Obstetrics Maternal Medicine, [facility] [address] [place] [address] Jenny Patino, DO [address] [place], [place] [id number] History of prior with IUGR *; Ultrasound for screening for growth restriction; 27 weeks gestation of Allergies Active Allergy Reactions Criticality Noted Date Comments Ibuprofen 12/11/2021 Penicillins 12/11/2021 documented as of this encounter (statuses as of 09/26/2023) Medications Medication Sig Dispensed Refills Start Date End Date Status 28-0.8 MG Oral Tablet Take by mouth. Active Breast PumpIndications:Breast feeding status of mother Pump daily while breast feeding. Z39.1, АННА 12/23/23 1 Each 09/10/2023 Active documented as of this encounter (statuses as of 09/26/2023) Active Problems Problem Noted Date Diagnosed Date [...] scheduled between 39-40 weeks gestation. As per [employer]'s 2010 practice [...] encouraged 05/15/2023 Angelina Felix RN 05/15/2023 nutrition [facility] discussed. Aware of program but most likely [...] as of this encounter (statuses as of 09/26/2023) Resolved Problems Problem Noted Date Diagnosed Date Resolved Date Supervision of normal 05/15/2023 07/15/2023 Food insecurity 08/13/2022 05/16/2023 Overview: Per [facility] Protocol IUGR (intrauterine growth re striction) affecting care of mother 04/27/2022 07/04/2022 Overview: 06/14/22 AC noted at <1% with overall EFW of 2146 g at 2%. SYLVIE 17.7 cm. Umbilical artery Doppler normal. Cephalic presentation. BPP 8/8. [facility] recommends delivery at 37 weeks Last [...] Patient educated on resources available within the [employer] system. Studies of first-trimester SSRI exposure do [...] 12/22/21 Need for food assistance referred to [facility] and local food monteiro 12/22/2021 Lalit Gr RN 12/22/21 Poor dental hygiene encourage routine brushing and flossing and referal to local dental clinic that accepts [place] insurances 12/22/2021 Lalit Gr RN 12/22/21 education 1st trimester education given 12/22/2021 Lalit Gr RN 12/22/21 .1st have you cut down with your smoking Yes have you quit Yes have you seen a bulk sugar handler No have you seen a social media sr strategy manager No are you receiving counseling No have you received dental care during your No are you enrolled in [facility] No do you receive food stamps or [...] resolved Discussed Post visit and setting up fish straightener Will schedule PPV 06/13/2022 Estefani Chandler RN 06/13/2022 Problem Action Taken Date entered Entered by Date resolved Current needs or questions Patient denies having any current needs or questions 07/30/2022 Estefani Chandler RN 07/30/2022 Problem Action Taken Date entered Entered by Date resolved Post education Education given 07/30/2022 Estefani Chandler RN 07/30/2022 documented as of this encounter (statuses as of 09/26/2023) Immunizations Name Administration Dates Next Due TDAP [...] money to get more. Never true 05/01/2023 [place] Depression Scale Answer Date Recorded [place] Depression Scale Total 1 05/15/2023 The thought of harming myself has occurred to me . Never 05/15/2023 Estimated Date of Delivery Comme nts Yes [...] of this encounter Progress Notes * Jenny Patino, - 09/26/2023 12:43 PM EDT Nehal presented today at 27w3d for an ultrasound for the following indications: History of prior with IUGR Ultrasound for screening for growth restriction 27 weeks gestation of Ultrasound summary: Patient presented at 27w 3d for growth assessment. Normal growth with EFW 1100 g at 44%ile. Normal SYLVIE at 15 cm. Breech presentation. I reviewed the ultrasound images. Nehal was given the opportunity to meet with me if she had any questions. Please refer to the ultrasound report for additional details about today's ultrasound examination. RECOMMENDATIONS: Recommend follow up ultrasound with MFM in 4-6 weeks for growth secondary to above indications. See prior formal MFM consultation note. Thank you for allowing us to participate in the care of this patient. Please call with any questions. Jenny Patino DO 09/26/2023 12:46 PM documented in this encounter Plan of Treatment Upcoming Encounters Date Type Department Care Team (Late st Contact Info) Description 10/11/2023 11:30 AM EDT Office Visit Gynecology/Obstetrics Chantelle Pickenss [address] [place] [address] Annette Daugherty CRNP [address] [place] [address] Nurse Louis [facility] Return Dia [address] [place] [address] 10/24/2023 11:00 AM EDT Imaging Maternal Medicine Imaging, Dia Myers [address] [place] [address] 10/24/2023 11:00 AM EDT Office Visit Turbine Assembler Obstetrics Maternal Medicine, Dia Pickenss [address] [place] [address] Jenny Patino DO [address] [place] [address] 10/28/2023 2:45 PM EDT Office Visit Gynecology/Obstetrics Chantelle Pickenss [address] [place] [address] Varun Jacobson MD [address] [place] [address] Nurse Louis [facility] Return Dia [address] [place] [address] 11/28/2023 8:45 AM EDT Imaging Maternal Medicine Imaging, [facility] [address] [facility] [place] [address] Health Maintenance Due Date Last Done Comments Depression Screening 2012 GARDASIL-HPV IMMUNIZATION SERIES (1 - 3-dose series) 12/21/2015 Hepatitis B (1 of 3 - 19+ 3-dose series) 12/21/2019 COVID-19 Vaccine (1 - 2022-2 4 season) 2023 Influenza Vaccine (FLU shot) (Season Ended) 2024 Gonorrhea / Chlamydia Screen 05/15/202402/2024, 12/22/2021 [...] History of prior with IUGR - Primary Ultrasound for screening for growth restriction screening for growth retardation using ultrasonics 27 weeks gestation of state, incidental documented in this encounter Care Teams Continuity Editor Relationship Specialty [place] [address] [address] PCP - General 03/12/22 documented as of this encounter
--- OUTSIDE RECORDS SUMMARY | 2023-12-17 07:16 | External Medical Summary | Summary of Care ---
Author Name Unknown Organization [facility] Address [address] [place] [address] Phone [phone] Care Team Providers Care Print Room Worker Name Role Phone Nayla Alicea MD Primary Care Provider [phone] Encounter Details Date Type Department Care Team (Late st Contact Info) Description 09/26/2023 11:00 AM EDT Office Visit Bisque Brusher Obstetrics Maternal Medicine, [facility] [address] [place] [address] Jenny Patino, DO [address] [place], [place] [phone] History of prior with IUGR *; Ultrasound [...] encouraged 05/15/2023 Angelina Felix RN 05/15/2023 nutrition [facility] discussed. Aware of program but most [...] artery Doppler normal. Cephalic presentation. BPP 8/8. [facility] recommends delivery at 37 weeks Last [...] Patient educated on resources available within the [employer] system. Studies of first-trimester SSRI exposure do [...] 12/22/21 Need for food assistance referred to [facility] and local food monteiro 12/22/2021 Lalit Gr RN 12/22/21 Poor dental hygiene encourage routine brushing and flossing and referal to local dental clinic that accepts [place] insurances 12/22/2021 Lalit Gr RN 12/22/21 education 1st trimester education given 12/22/2021 Lalit Gr RN 12/22/21 .1st have you cut down with your smoking Yes have you quit Yes have you seen a bicycle repair technician No have you seen a social worker masters No are you receiving counseling No have you received dental care during your No are you enrolled in [facility] No do you receive food stamps [...] resolved Discussed Post visit and setting up furnace erector Will schedule PPV 06/13/2022 Estefani Chandler RN [...] money to get more. Never true 05/01/2023 [place] Depression Scale Answer Date Recorded [place] Depression Scale Total 1 05/15/2023 The thought [...] [address] [place] [address] Annette Daugherty CRNP [address] [place] [address] Nurse Louis [facility] Return Dia [address] [place] [address] 10/24/2023 11:00 AM EDT Imaging Maternal Medicine Imaging, Dia Myers [address] [place] [address] 10/24/2023 11:00 AM EDT Office Visit Bisque Brusher Obstetrics Maternal Medicine, D[facility] Pickens[facility] [address] [place] [address] Jenny Patino DO [address] [place] [address] 10/28/2023 2:45 PM EDT Office Visit Gynecology/Obstetrics Chantelle Pickenss [address] [place] [address] Varun Jacobson MD [address] [place] [address] Nurse Louis [facility] Return Dia [address] [place] [address] 11/28/2023 8:45 AM EDT Imaging Maternal Medicine Imaging, [facility] [address] [facility] [place] [address] Health Maintenance Due Date [...] incidental documented in this encounter Care Teams Print Room Worker Relationship Specialty [place] [address] [address] PCP - General 03/12/22 documented as of this encounter
--- OUTSIDE RECORDS SUMMARY | 2023-12-17 07:16 | External Medical Summary | Summary of Care ---
Author Name Unknown Organization [facility] Address [address] [place] [address] Phone [phone] Care Team Providers Care Personnel And Payroll Technician Name Role Phone Nayla Alicea MD Primary Care Provider Encounter Details Date Type Department Care Team (Late st Contact Info) Description 10/24/2023 11:00 AM EDT Office Visit Farmworker Fur Obstetrics Maternal Medicine, [facility] [address] [place] [address] Jenny Patino, DO [address] [place], [place] [phone] History of prior with IUGR *; Ultrasound for screening for growth restriction; 31 weeks gestation of Allergies Active Allergy Reactions Criticality Noted Date Comments Ibuprofen 12/11/2021 Penicillins 12/11/2021 documented as of this encounter (statuses as of 10/25/2023) Medications Medication Sig Dispensed Refills Start Date End Date Status 28-0.8 MG Oral Tablet Take by mouth. Active Breast PumpIndications:Breast feeding status of mother Pump daily while breast feeding. Z39.1, АННА 12/23/23 1 Each 09/10/2023 Active documented as of this encounter (statuses as of 10/25/2023) Active Problems Problem Noted Date Diagnosed Date [...] encouraged 05/15/2023 Angelina Felix RN 05/15/2023 nutrition [facility] discussed. Aware of program but [...] as of this encounter (statuses as of 10/25/2023) Resolved Problems Problem Noted Date Diagnosed Date Resolved Date Supervision of normal 05/15/2023 07/15/2023 Food insecurity 08/13/2022 05/16/2023 Overview: Per [facility] Protocol IUGR (intrauterine growth re striction) affecting care of mother 04/27/2022 07/04/2022 Overview: 06/14/22 AC noted at <1% with overall EFW of 2146 g at 2%. SYLVIE 17.7 cm. Umbilical artery Doppler normal. Cephalic presentation. BPP 8/8. [facility] recommends delivery at 37 weeks Last [...] Patient educated on resources available within the [employer] system. Studies of first-trimester SSRI exposure do [...] 12/22/21 Need for food assistance referred to [facility] and local food monteiro 12/22/2021 Lalit Gr RN 12/22/21 Poor dental hygiene encourage routine brushing and flossing and referal to local dental clinic that accepts [place] insurances 12/22/2021 Lalit Gr RN 12/22/21 education 1st trimester education given 12/22/2021 Lalit Gr RN 12/22/21 .1st have you cut down with your smoking Yes have you quit Yes have you seen a phosphatic fertilizer supervisor No have you seen a licensed social worker No are you receiving counseling No have you received dental care during your No are you enrolled in [facility] No do you receive food stamps [...] resolved Discussed Post visit and setting up federal appellate law clerk Will schedule PPV 06/13/2022 Estefani Chandler RN 06/13/2022 Problem Action Taken Date entered Entered by Date resolved Current needs or questions Patient denies having any current needs or questions 07/30/2022 Estefani Chandler RN 07/30/2022 Problem Action Taken Date entered Entered by Date resolved Post education Education given 07/30/2022 Estefani Chandler RN 07/30/2022 documented as of this encounter (statuses as of 10/25/2023) Immunizations Name Administration Dates Next Due TDAP [...] money to buy more. Never true 05/01/20 Within the past 12 months, t he food you bought just didn't last and you didn't have money to get more. Never true 05/01/2023 [place] Depression Scale Answer Date Recorded [place] Depression Scale Total 1 05/15/2023 The thought [...] Progress Notes * Jenny Patino DO - 10/25/2023 9:29 AM EDT Nehal presented for an ultrasound for the following indications: History of prior with IUGR Ultrasound for screening for growth restriction 31 weeks gestation of Ultrasound summary: Patient presented at 31w 3d for growth assessment. Normal growth with EFW 1781 g at 41%ile. Normal SYLVIE at 15 cm. Cephalic presentation. I reviewed the ultrasound [...] call with any questions. Jenny Patino DO 10/25/2023 9:29 AM documented in this encounter Plan of Treatment Upcoming Encounters Date Type Department Care Team (Late st Contact Info) Description 10/28/2023 2:45 PM EDT Office Visit Gynecology/Obstetrics Chantelle Myers [address] [place] [address] Varun Jacobson MD [address] [place] [address] Nurse Louis [facility] Return Dia [address] [place] [address] 11/28/2023 8:45 AM EDT Imaging Maternal Medicine Imaging, Dia Myers [address] [place] [phone] Health Maintenance Due Date Last Done Comments [...] restriction screening for growth retardation using ultrasonics 31 weeks gestation of state, incidental documented in this encounter Care Teams Personnel And Payroll Technician Relationship Specialty [place] [address] [address] PCP - General 03/12/22 documented as of this encounter
--- OUTSIDE RECORDS SUMMARY | 2023-12-17 07:16 | External Medical Summary | Summary of Care ---
Author Name Unknown Organization [facility] Address [address] [place] [address] Phone [phone] Care Team Providers Care Shorthand Reporter Name Role Phone Nayla Alicea MD Primary Care Provider [phone] Reason for Visit * Reason Comments Return Visit Encounter Details Date Type Department Care Team (Late st Contact Info) Description 10/11/2023 11:30 AM EDT Office Visit Gynecology/Obstetri seferino Myers [address] [facility] [place] [address] Annette Daugherty CRNP [address] [address] Nurse Alka Myers [facility] Return [facility] [address] [facility] [place] [address] Supervision of high risk in third trimester*; History of section complicating ; History of prior with IUGR ; BMI less than 19,adult; Abnormal thyroid blood test Allergies Active Allergy Reactions Criticality Noted Date Comments Ibuprofen 12/11/2021 Penicillins 12/11/2021 documented as of this encounter (statuses as of 10/11/2023) Medications Medication Sig Dispensed Refills Start Date End Date Status 28-0.8 MG Oral Tablet Take by mouth. Active Breast PumpIndications:Breast feeding status of mother Pump daily while breast feeding. Z39.1, АННА 12/23/23 1 Each 09/10/2023 Active documented as of this encounter (statuses as of 10/11/2023) Active Problems Problem Noted Date Diagnosed Date [...] scheduled between 39-40 weeks gestation. As per [employer] [place] [employer]'s 2010 practice [...] as of this encounter (statuses as of 10/11/2023) Resolved Problems Problem Noted Date Diagnosed Date [...] Patient educated on resources available within the [employer] system. Studies of first-trimester SSRI exposure do [...] you quit Yes have you seen a manager system No have you seen a group social worker No are you receiving counseling [...] resolved Discussed Post visit and setting up dye reel operator helper Will schedule PPV 06/13/2022 Estefani Chandler RN 06/13/2022 Problem Action Taken Date entered Entered by Date resolved Current needs or questions Patient denies having any current needs or questions 07/30/2022 Estefani Chandler RN 07/30/2022 Problem Action Taken Date entered Entered by Date resolved Post education Education given 07/30/2022 Estefani Chandler RN 07/30/2022 documented as of this encounter (statuses as of 10/11/2023) Immunizations Name Administration Dates Next Due TDAP [...] money to get more. Never true 05/01/2023 [place] Depression Scale Answer Date Recorded [place] Depression Scale Total 1 05/15/2023 The thought [...] Sign Reading Time Taken Comments Blood Pressure 98/60 10/11/2023 11:41 AM EDT Pulse - - Temperature - - Respiratory Rate - - Oxygen Saturation - - Inhaled Oxygen Concentration - - Weight 63.5 kg (140 lb) 10/11/2023 11:41 AM EDT Height - - Body Mass Index 22.6 06/14/2023 2:49 PM EST documented in this encounter Progress Notes * Rosalind Ro LPN - 10/11/2023 11:41 AM EDT 29w4d Denies vaginal bleeding/rom + movement No new concerns * Annette Daugherty CRNP - 10/11/2023 11:41 AM EDT 29w4d Receives routine growth scans with MFM, scheduled in about 2 weeks. Discussed [facility] and when to call with concerns. Known anterior placenta. No bleeding, leaking, regular ctx. 2 week return NICK Whelan documented in this encounter Plan of Treatment Upcoming Encounters Date Type Department Care Team (Late st Contact Info) Description 10/24/2023 11:00 AM EDT Imaging Maternal Medicine ImagingDia [address] [place] [phone] 10/24/2023 11:00 AM EDT Office Visit Cardiac Care Nurse Obstetrics [facility] [place] [address] Jenny Patino, DO [address] [place] [address] 10/28/2023 2:45 PM EDT Office Visit Gynecology/Obstetrics Chantelle Myers [address] [place] [address] Varun Jacobson MD [address] [place] [address] Nurse Alka Myers Beginnings Return Dia [place] [address] 11/28/2023 8:45 AM EDT Imaging Maternal Medicine Imaging, Dia [place] [address] Health Maintenance Due Date Last Done Comments [...] study documented in this encounter Care Teams Shorthand Reporter Relationship Specialty [place] [address] [facility] [address] [place] [address] PCP - General 03/12/22 documented as of this encounter
--- OUTSIDE RECORDS SUMMARY | 2023-12-17 07:16 | External Medical Summary | Summary of Care ---
Author Name Unknown Organization [facility] Address [address] [place] [address] Phone [phone] Care Team Providers Care Boatswains Mate Name Role Phone Nayla Alicea MD Primary Care Provider [phone] Reason for Visit * Reason Comments [facility] Return Encounter Details Date Type Department Care Team (Late st Contact Info) Description 11/13/2023 11:30 AM EDT Office Visit Gynecology/Obstetri seferino Myers [address] [facility] [place] [address] Puja Harmna PA-C [address] [place] [address] Nurse Alka Myers Beginning[facility] Return Dia [address] [place] [address] Supervision of high risk in third trimester*; [...] scheduled between 39-40 weeks gestation. As per [employer] [employer]'s 2010 practice [...] encouraged 05/15/2023 Angelina Felix RN 05/15/2023 nutrition [facility] discussed. Aware of program but most [...] Patient educated on resources available within the [employer] system. Studies of first-trimester SSRI exposure do [...] 12/22/21 Need for food assistance referred to [facility] and local food monteiro 12/22/2021 Lalit Gr RN 12/22/21 Poor dental hygiene encourage routine brushing and flossing and referal to local dental clinic that accepts [place] insurances 12/22/2021 Lalit Gr RN 12/22/21 education 1st trimester education given 12/22/2021 Lalit Gr RN 12/22/21 .1st have you cut down with your smoking Yes have you quit Yes have you seen a radio performer No have you seen a social science instructor No are you receiving counseling No have [...] resolved Discussed Post visit and setting up boat ride operator Will schedule PPV 06/13/2022 Estefani Chandler RN [...] money to get more. Never true 05/01/2023 [place] Depression Scale Answer Date Recorded [place] Depression Scale Total 1 05/15/2023 The thought [...] Abby made aware to schedule pt at [id number]. Pelvic exam: External genitalia and vagina anatomy within normal limits, No significant vulvar lesions, No significant vaginal discharge, discharge present physiologic in appearence, Cervix normal inappearance without discharge, cervix visually closed, no pooling at cervical os and no blood in vaginal vault. Nitrazine test negative. No lof with valsalva. Blasting Contract Miner Documentation Provider requested traffic observer. Name of traffic observer: ROSARIO Boyer RTC in 2 weeks Puja Harman PA-C * Meredith Orellana MED ASSIST - 11/13/2023 11:44 AM EDT 34w2d Denies vaginal bleeding/rom + movements + nausea ? Possible loss of mucus plug Muscle spasm/cramping Pressure in vaginal area when walking Requesting cervical check documented in this encounter Plan of Treatment Upcoming Encounters Date Type Department Care Team (Late st Contact Info) Description 11/28/2023 8:45 AM EDT Imaging Maternal Medicine Imaging, [facility] [address] [facility] [phone] 11/28/2023 1:30 PM EDT Office Visit Gynecology/Obstetrics Chantelle [address] [place] [address] Kaitlin Greenberg, [address] [place] [address] Nurse Alka Myers [facility] Return Dia [address] [facility] [place] [address] 12/03/2023 1:30 PM EDT Office Visit Gynecology/Obstetrics Chantelle Myers [address] [facility] [place] [address] Backer, NICK [place] [facility] [place] [address] Nurse Louis [facility] Return Dia [address] [place] [address] 12/11/2023 2:00 PM EDT Office Visit Gynecology/Obstetrics Chantelle Myers [address] [place] [address] Shayy Goodwin CRNP [address] [place] [address] Nurse Louis [facility] Return Dia [address] [place] [address] Health Maintenance Due Date Last Done Comments [...] study documented in this encounter Care Teams Boatswains Mate Relationship Specialty [place] [address] [address] PCP - General 03/12/22 documented as of this encounter
--- OUTSIDE RECORDS SUMMARY | 2023-12-17 07:16 | External Medical Summary | Summary of Care ---
Author Name Unknown Organization [facility] Address [address] [place] [address] Phone [phone] Care Team Providers Care Animal Nutrition Teacher Name Role Phone Nayla Alicea MD Primary Care Provider [phone] Reason for Visit * Reason Comments Return Visit Encounter Details Date Type Department Care Team (Late st Contact Info) Description 10/28/2023 2:45 PM EDT Office Visit Gynecology/Obstetri seferino Myers [address] [place] [address] Varun Jacobson MD [address] [place] [address] Nurse Louis [facility] Return Dia [address] [facility] [place] [address] Supervision of high risk in third trimester*; History of section complicating ; History of prior with IUGR ; BMI less than 19,adult; Abnormal thyroid blood test Allergies Active Allergy Reactions Criticality Noted Date Comments Ibuprofen 12/11/2021 Penicillins 12/11/2021 documented as of this encounter (statuses as of 10/28/2023) Medications Medication Sig Dispensed Refills Start Date End Date Status 28-0.8 MG Oral Tablet Take by mouth. Active Breast PumpIndications:Breast feeding status of mother Pump daily while breast feeding. Z39.1, АННА 12/23/23 1 Each 09/10/2023 Active documented as of this encounter (statuses as of 10/28/2023) Active Problems Problem Noted Date Diagnosed Date [...] scheduled between 39-40 weeks gestation. As per [employer]'s 2010 practice [...] encouraged 05/15/2023 Angelina Felix RN 05/15/2023 nutrition [facility] discussed. Aware of program but most [...] as of this encounter (statuses as of 10/28/2023) Resolved Problems Problem Noted Date Diagnosed Date [...] Patient educated on resources available within the [employer] system. Studies of first-trimester SSRI exposure do [...] 12/22/21 Need for food assistance referred to [facility] and local food mon[place] 12/22/2021 Lalit Gr RN 12/22/21 Poor dental hygiene encourage routine brushing and flossing and referal to local dental clinic that accepts [place] insurances 12/22/2021 Lalit Gr RN 12/22/21 education 1st trimester education given 12/22/2021 Lalit Gr RN 12/22/21 .1st have you cut down with your smoking Yes have you quit Yes have you seen a college or university faculty member No have you seen a social worker [...] resolved Discussed Post visit and setting up pig machine supervisor Will schedule PPV 06/13/2022 Estefani Chandler RN 06/13/2022 Problem Action Taken Date entered Entered by Date resolved Current needs or questions Patient denies having any current needs or questions 07/30/2022 Estefani Chandler RN 07/30/2022 Problem Action Taken Date entered Entered by Date resolved Post education Education given 07/30/2022 Estefani Chandler RN 07/30/2022 documented as of this encounter (statuses as of 10/28/2023) Immunizations Name Administration Dates Next Due TDAP [...] money to get more. Never true 05/01/2023 [place] Depression Scale Answer Date Recorded [place] Depression Scale Total 1 05/15/2023 The thought [...] Reading Time Taken Comments Blood Pressure 100/60 10/28/2023 2:44 PM EDT Pulse - - Temperature - - Respiratory Rate - - Oxygen Saturation - - Inhaled Oxygen Concentration - - Weight 64.4 kg (142 lb) 10/28/2023 2:44 PM EDT Height 167.6 cm (5' 6") 10/28/2023 2:44 PM EDT Body Mass Index 22.92 10/28/2023 2:44 PM EDT documented in this encounter Progress Notes * Varun Jacobson MD - 10/28/2023 3:08 PM EDT Pt doing well S/p C/sec . Wishes to do TOLAC Discussed risk and benefits of BA Informed pt time for TOLAC recommendation is after 18 months Pt will be exactly 18 months at time of next Pt discussed with her and both have agreed to do repeat c/sec * Denise Nassar LPN - 10/28/2023 2:44 PM EDT 32w0d Discuss tolac documented in this encounter Plan of Treatment Upcoming Encounters Date Type Department Care Team (Late st Contact Info) Description 11/13/2023 11:30 AM EDT Office Visit Gynecology/Obstetrics Chantelle Myers [address] [place] [address] Puja Harman PA-C [address] [place] [address] Nurse [facility] Return Dia [address] [place] [address] 11/26/2023 3:45 PM EDT Office Visit Gynecology/Obstetrics Chantelle Myers [address] [place] [address] Kaitlin Greenberg, [facility] [address] [facility] [place] [address] Nurse Louis [facility] Return Dia [address] [place] [address] 11/27/2023 2:00 PM EDT Office Visit Gynecology/Obstetrics Chantelle Myers [address] [place] [address] Shayy Goodwin CRNP [address] [place] [address] Nurse [facility] Return Dia [address] [place] [address] 11/28/2023 8:45 AM EDT Imaging Maternal Medicine Imaging, Dailuis Myers [address] [place] [phone] 12/03/2023 1:30 PM EDT Office Visit Gynecology/Obstetrics Chantelle Myers [address] [place] [address] Annette Daugherty CRNP [address] [place] [address] Nurse [facility] Return Dia [address] [place] [address] 12/11/2023 2:00 PM EDT Office Visit Gynecology/Obstetrics Chantelle Myers [address] [place] [address] Shayy Goodwin CRNP [address] [place] [address] Nurse Louis [facility] Return Dia [address] [place] [address] Health Maintenance Due Date Last Done Comments [...] study documented in this encounter Care Teams Animal Nutrition Teacher Relationship Specialty [place] [address] [place] [address] PCP - General 03/12/22 documented as of this encounter
--- OUTSIDE RECORDS SUMMARY | 2023-12-17 07:16 | External Medical Summary | Summary of Care ---
Author Name Unknown Organization [facility] Address [address] [place] [address] Phone [phone] Care Team Providers Care Director Case Management Name Role Phone Nayla Alicea MD Primary Care Provider [phone] Encounter Details Date Type Department Care Team (Late st Contact Info) Description 10/24/2023 11:00 AM EDT Office Visit Vocational Technical Education Director Obstetrics Maternal Medicine, [facility] [address] [place] [address] Jenny Patino, DO [address] [place], [place] [id number] History of prior with IUGR *; Ultrasound [...] scheduled between 39-40 weeks gestation. As per [employer]'s 2010 practice [...] encouraged 05/15/2023 Angelina Felix RN 05/15/2023 nutrition [facility] discussed. Aware of program but most likely [...] artery Doppler normal. Cephalic presentation. BPP 8/8. [facility] recommends delivery at 37 weeks Last [...] Patient educated on resources available within the [employer] system. Studies of first-trimester SSRI exposure do [...] 12/22/21 Need for food assistance referred to [facility] and local food [place] 12/22/2021 Lalit Gr RN 12/22/21 Poor dental hygiene encourage routine brushing and flossing and referal to local dental clinic that accepts [place] insurances 12/22/2021 Lalit Gr RN 12/22/21 education 1st trimester education given 12/22/2021 Lalit Gr RN 12/22/21 .1st have you cut down with your smoking Yes have you quit Yes have you seen a cushion sewer No have you seen a social security benefits interviewer No are you receiving counseling No have you received dental care during your No are you enrolled in [facility] No do you receive food stamps or [...] resolved Discussed Post visit and setting up pinball machine repairer Will schedule PPV 06/13/2022 Estefani Chandler RN [...] money to get more. Never true 05/01/2023 [place] Depression Scale Answer Date Recorded [place] Depression Scale Total 1 05/15/2023 The thought [...] Gynecology/Obstetrics Chantelle Myers [address] [place] [address] Varun Jacobson MD [address] [place] [address] Nurse Louis [facility] Return Dia [address] [place] [address] 11/28/2023 8:45 AM EDT Imaging Maternal Medicine Imaging, Dia Myers [address] [place] [phone] Health Maintenance Due Date Last Done Comments [...] incidental documented in this encounter Care Teams Director Case Management Relationship Specialty [place] [address] [address] PCP - General 03/12/22 documented as of this encounter
--- OUTSIDE RECORDS SUMMARY | 2023-12-17 07:17 | External Medical Summary | Summary of Care ---
Author Name Unknown Organization [facility] Address [address] [place] [address] Phone [phone] Care Team Providers Care Registration Officer Name Role Phone Nayla Alicea MD Primary Care Provider [phone] Reason for Visit * Reason Comments Outpatient Testing Encounter Details Date Type Department Care Team ([facility] st Contact Info) Description 09/24/2023 3:10 PM EDT Laboratory Laboratory, [facility] [address] [place] [phone] [facility] [address] [place] [address] Arrived Allergies Active Allergy Reactions Criticality Noted Date Comments Ibuprofen 12/11/2021 Penicillins 12/11/2021 documented as of this encounter (statuses as of 09/24/2023) Medications Medication Sig Dispensed Refills Start Date End Date Status 28-0.8 MG Oral Tablet Take by mouth. Active Breast PumpIndications:Breast feeding status of mother Pump daily while breast feeding. Z39.1, АННА 12/23/23 1 Each 09/10/2023 Active documented as of this encounter (statuses as of 09/24/2023) Active Problems Problem Noted Date Diagnosed Date [...] scheduled between 39-40 weeks gestation. As per [employer]'s 2010 practice [...] 05/15/2023 Angelina Felix RN 05/15/[address] [facility] discussed. Aware of program but [...] or questions 09/10/2023 Estefani Chandler RN 09/10/2023 Racing heart beat 01/19/2022 Overview: See 01/26/22 Cardiology consult. ECHO and Zio Patch monitory x 7 days ordered , supervision, high-risk 12/22/2021 Overview: Primary 06/20/2022 EDC 12/23/2023 Estimated Date of Delivery Comme nts Yes 12/23/2023 Based on Ultraso und documented as of this encounter (statuses as of 09/24/2023) Resolved Problems Problem Noted Date Diagnosed Date Resolved Date Supervision of normal 05/15/2023 07/15/2023 Food insecurity 08/13/2022 05/16/2023 Overview: Per [facility] Protocol IUGR (intrauterine growth re striction) affecting care of mother 04/27/2022 07/04/2022 Overview: 06/14/22 AC noted at <1% with overall EFW of 2146 g at 2%. SYLVIE 17.7 cm. Umbilical artery Doppler normal. Cephalic presentation. BPP 8/8. [facility] recommends delivery at 37 weeks Last Assessment [...] Patient educated on resources available within the [employer] system. Studies of first-trimester SSRI exposure do [...] Need for food assistance referred to [facility] and local food Mov[employer] 12/22/2021 Lalit Gr RN 12/22/21 Poor dental hygiene encourage routine brushing and flossing and referal to local dental clinic that accepts [place] insurances 12/22/2021 Lalit Gr RN 12/22/21 education 1st trimester education given 12/22/2021 Lalit Gr RN 12/22/21 .1st have you cut down with your smoking Yes have you quit Yes have you seen a book jacket cover machine operator No have you seen a social work professor No are you receiving counseling No have you received dental care during your No are you enrolled in [facility] No do you receive food stamps or [...] resolved Education 3rd trimester Education 04/11/2022 Estefani Chandelr RN 04/11/2022 Problem Action Taken Date entered [...] resolved Discussed Post visit and setting up companion Will schedule PPV 06/13/2022 Estefani Chandler RN 06/13/2022 Problem Action Taken Date entered Entered by Date resolved Current needs or questions Patient denies having any current needs or questions 07/30/2022 Estefani Chandler RN 07/30/2022 Problem Action Taken Date entered Entered by Date resolved Post education Education given 07/30/2022 Estefani Chandler RN 07/30/2022 documented as of this encounter (statuses as of 09/24/2023) Immunizations Name Administration Dates Next Due TDAP (age 10 and older)(Boostrix) 04/11/2022 documented as of this encounter Social History [...] money to get more. Never true 05/01/2023 [place] Depression Scale Answer Date Recorded [place] Depression Scale Total 1 05/15/2023 The thought [...] on file documented as of this encounter Plan of Treatment Upcoming Encounters Date Type Department Care Team (Late st Contact Info) Description 09/26/2023 11:00 AM EDT Imaging Maternal Medicine Imaging, [place] [phone] 09/26/2023 11:00 AM EDT Office Visit Derrickman Helper Obstetrics Maternal Medicine, [address] [place] [address] Jenny Patino, DO [address] [place] [address] 10/24/2023 11:00 AM EDT Imaging Maternal Medicine Imaging, [address] [place] [address] 10/24/2023 11:00 AM EDT Office Visit Derrickman Helper Obstetrics Maternal Medicine, [address] [place] [address] Jenny Patino Fabian Fior, DO [address] [facility] [place] [address] 10/28/2023 2:45 PM EDT Office Visit Gynecology/Obstetrics Chantelle Myers [address] [place] [address] Varun Jacobson MD [address] [place] [address] Nurse Louis [facility] Return Dia [address] [place] [address] Health Maintenance Due Date Last Done Comments Depression Screening 2012 GARDASIL-HPV IMMUNIZATION SERIES (1 - 3-dose series) 12/21/2015 Hepatitis B (1 of 3 - 19+ 3-dose series) 12/21/2019 COVID-19 Vaccine ( - 2022-2 4 season) 2023 Influenza Vaccine (FLU shot) (Season Ended) 2024 Gonorrhea / Chlamydia Screen 05/15/202402/2024, 12/22/2021 Pap Smear 12/22/2024 12/22/2021 DTaP,Tdap,and Td Vaccines (2 - Td or Tdap) 04/11/2032 04/11/2022 MENINGOCOCCAL (MENACTRA/MENVEO) Aged Out No longer eligible b ased on patient's age to complete this topic Pneumococcal Vaccine: Pediatrics (0 to 5 Years) and At-Risk Patients (6 to 64 Years) Aged Out No longer eligible b ased on patient's age to complete this topic documented as of this encounter Medical Devices Not on filedocumented as of this encounter Care Teams Registration Officer Relationship Specialty Start [place] [address] [address] PCP - General 03/12/22 documented as of this encounter
--- OUTSIDE RECORDS SUMMARY | 2023-12-17 07:17 | External Medical Summary ---
Author Name Unknown Address Unknown Organization [id number]:[facility] [place] [address] [facility] [address] Laboratory Report Ordering Provider Test Date Status TY GUSMAN 09/24/2023 16:02:00 Final Observation Date Value Abnormality Reference (Units ) Status TSH 09/24/2023 16:02:00 1.48 0.27-4.20 (uIU/mL) Final Performing Location [facility] [place] [address] [facility] [address]
--- OUTSIDE RECORDS SUMMARY | 2023-12-17 07:17 | External Medical Summary ---
Author Name Unknown Address Unknown Organization [id number][place] [place] [address] [place] [address] Laboratory Report Ordering Provider Test Date Status NASEEMTY 09/24/2023 16:02:00 Final Observation Date Value Abnormality Reference (Units ) Status Treponema pallidum Ab [Presence] in Serum by Immunoassay 09/24/2023 16:02:00 Nonreactive Nonreactive Final No serologic evidence of syp hilis. No additional testing clinicially indicated at this time. Consider repeat testing in 2-4 weeks if acute or primary syphilis is suspected. Performing Location [facility] [place] [address] [place] [address]
--- OUTSIDE RECORDS SUMMARY | 2023-12-17 07:17 | External Medical Summary | Summary of Care ---
Author Name Unknown Organization [facility] Address [address] [place] [address] Phone [phone] Care Team Providers Care Principal Programmer Name Role Phone Nayla Alicea MD Primary Care Provider [phone] Reason for Visit * Reason Comments Return Visit Encounter Details Date Type Department Care Team (Late st Contact Info) Description 09/24/2023 2:30 PM EDT Office Visit Gynecology/Obstetri seferino Myers [address] [facility] [place] [address] Laura Cunningham, RAZA [address] [place] [address] Nurse Louis [facility] Beginning Return Dia [address] [facility] [place] [address] Supervision of high risk , antepartum*; History of section complicating ; History of [...] scheduled between 39-40 weeks gestation. As per [employer]'s 2010 practice [...] encouraged 05/15/2023 Angelina Felix RN 05/15/2023 nutrition [facility] discussed. Aware of program but most likely [...] Patient educated on resources available within the [employer] system. Studies of first-trimester SSRI exposure do [...] 12/22/21 Need for food assistance referred to [facility] and local food monte[place] 12/22/2021 Lalit Gr RN 12/22/21 Poor dental hygiene encourage routine brushing and flossing and referal to local dental clinic that accepts [place] insurances 12/22/2021 Lalit rG RN 12/22/21 education 1st trimester education given 12/22/2021 Lalit Gr RN 12/22/21 .1st have you cut down with your smoking Yes have you quit Yes have you seen a intelligence specialist No have you seen a social work lecturer No are you receiving counseling No have [...] resolved Discussed Post visit and setting up adult basic studies teacher Will schedule PPV 06/13/2022 Estefani Chandler RN [...] money to get more. Never true 05/01/2023 [place] Depression Scale Answer Date Recorded [place] Depression Scale Total 1 05/15/2023 The thought [...] Sign Reading Time Taken Comments Blood Pressure 100/62 09/24/2023 2:54 PM EDT Pulse - - Temperature - - Respiratory Rate - - Oxygen Saturation - - Inhaled Oxygen Concentration - - Weight 63 kg (139 lb) 09/24/2023 2:54 PM EDT Height - - Body Mass Index 22.44 06/14/2023 2:49 PM EST documented in this encounter Progress Notes * Laura Cunningham CNM - 09/24/2023 2:30 PM EDT Nehal Lee is a 22 year old female here for her routine OB appointment at 27w1d Her Estimated Date of Delivery: 12/23/23 REVIEW OF SYSTEMS: She affirms movement. Denies vaginal bleeding, LOF, contractions, N/V, headaches PHYSICAL EXAM: Filed Vitals: 09/24/23 1454 BP: 100/62 Weight: 63 kg (139 lb) +FHT 130s Fundal height 27 ASSESSMENT/PLAN: 1. History of section complicating Considering TOLAC 2. History of prior with IUGR 3. BMI less than 19,adult 4. Abnormal thyroid blood test 5. Supervision of high risk , antepartum - recommended tdap vaccine - patient getting today - planning to complete CBC, GTT today - is planning pill for contraception - rhogam not needed d/t O+ blood type - labor precautions and kick counts reviewed - RTO in 2 weeks Laura Cunningham CNM documented in this encounter Plan of Treatment Upcoming Encounters Date Type Department Care Team (Late st Contact Info) Description 09/26/2023 11:00 AM EDT Imaging Maternal Medicine Imaging, [facility] [place] [phone] 09/26/2023 11:00 AM EDT Office Visit [employer] Head Inspector And Adjuster Obstetrics Maternal Medicine, [address] [place] [address] Jenny Patino, DO [address] [place] [address] 10/11/2023 11:30 AM EDT Office Visit Gynecology/[facility]stetrics [facility]antelle Myers [facility] [place] [address] Annette Daugherty CRNP [address] [facility] [place] [address] Nurse Alka Myerss Return [place] [address] 10/24/2023 11:00 AM EDT Imaging Maternal Medicine Imaging, [place] [address] 10/24/2023 11:00 AM EDT Office Visit [employer] Head Inspector And Adjuster Obstetrics Maternal Medicine, Dia Myers [address] [place] [address] Jenny Patino, DO [address] [place] [address] 10/28/2023 2:45 PM EDT Office Visit Gynecology/Obstetrics Chantelle Myers [address] [place] [address] Varun Jacobson MD [address] [place] [address] Nurse Louis [facility] Return [place] [address] Health Maintenance Due Date Last Done Comments Depression Screening 2012 GARDASIL-HPV IMMUNIZATION SERIES (1 - 3-dose series) 12/21/2015 Hepatitis B (1 of 3 - 19+ 3-dose series) 12/21/2019 COVID-19 Vaccine (2022-2 4 season) 2023 Influenza Vaccine (FLU shot) [...] Visit Diagnoses Diagnosis Supervision of high risk , antepartum- Primary History of section complicating Previous delivery, unspecified as to episode of care or not applicable History of prior with IUGR BMI less than 19,adult Body Mass Index less than 19, adult Abnormal thyroid blood test Nonspecific abnormal results of thyroid function study documented in this encounter Care Teams Principal Programmer Relationship Specialty [place] [address] [address] PCP - General 03/12/22 documented as of this encounter
--- OUTSIDE RECORDS SUMMARY | 2023-12-17 07:17 | External Medical Summary | Summary of Care ---
Author Name Unknown Organization [facility] Address [address] [place] [address] Phone [phone] Care Team Providers Care Box Finisher Name Role Phone Nayla Alicea MD Primary Care Provider [phone] Reason for Visit * Reason Comments Outpatient Testing Encounter Details Date Type Department Care Team (Late st Contact Info) Description 07/15/2023 2:00 PM EDT Laboratory Laboratory, [facility] [address] [place] [phone] [facility] [address] [place] [address] [employer] Other*[id number]; Supervision of high risk in second trimester Allergies Active Allergy Reactions Criticality Noted Date Comments Ibuprofen 12/11/2021 Penicillins 12/11/2021 documented as of this encounter (statuses as of 09/10/2023) Medications Medication Sig Dispensed Refills Start Date End Date Status 28-0.8 MG Oral Tablet Take by mouth. 0 Active documented as of this encounter (statuses as of 09/10/2023) Active Problems Problem Noted Date Diagnosed Date [...] scheduled between 39-40 weeks gestation. As per [employer]'s 2010 practice [...] encouraged 05/15/2023 Angelina Felix RN 05/15/2023 nutrition [facility] discussed. Aware of program but most [...] or questions 08/12/2023 Estefani Chandler RN 08/12/2023 Racing heart beat 01/19/2022 Overview: See 01/26/22 Cardiology consult. ECHO and Zio Patch monitory x 7 days ordered , supervision, high-risk 12/22/2021 Overview: Primary 06/20/2022 EDC 12/23/2023 Estimated Date of Delivery Comme nts Yes 12/23/2023 Based on Ultraso und documented as of this encounter (statuses as of 09/10/2023) Resolved Problems Problem Noted Date Diagnosed Date Resolved Date Supervision of normal 05/15/2023 07/15/2023 Food insecurity 08/13/2022 05/16/2023 Overview: Per [facility] Protocol IUGR (intrauterine growth re striction) affecting care of mother 04/27/2022 07/04/2022 Overview: 06/14/22 AC noted at <1% with overall EFW of 2146 g at 2%. SYLVIE 17.7 cm. Umbilical artery Doppler normal. Cephalic presentation. BPP 8/8. [facility] recommends delivery at 37 weeks [...] Patient educated on resources available within the [employer] system. Studies of first-trimester SSRI exposure do [...] 12/22/21 Need for food assistance referred to [facility] and local food monteiro 12/22/2021 Lalit Gr RN 12/22/21 Poor dental hygiene encourage routine brushing and flossing and referal to local dental clinic that accepts [place] insurances 12/22/2021 Lalit Gr RN 12/22/21 education 1st trimester education given 12/22/2021 Lalit Gr RN 12/22/21 .1st have you cut down with your smoking Yes have you quit Yes have you seen a test developer No have you seen a socially responsible investment adviser No are you receiving counseling No have you received dental care during your No are you enrolled in [facility] No do you receive food stamps [...] resolved Discussed Post visit and setting up corporate strategy analyst Will schedule PPV 06/13/2022 Estefani Chandler RN 06/13/2022 Problem Action Taken Date entered Entered by Date resolved Current needs or questions Patient denies having any current needs or questions 07/30/2022 Estefani Chandler RN 07/30/2022 Problem Action Taken Date entered Entered by Date resolved Post education Education given 07/30/2022 Estefani Chandler RN 07/30/2022 documented as of this encounter (statuses as of 09/10/2023) Immunizations Name Administration Dates Next Due TDAP [...] money to get more. Never true 05/01/2023 [place] Depression Scale Answer Date Recorded [place] Depression Scale Total 1 05/15/2023 The thought [...] Care Team (Late st Contact Info) Description 09/10/2023 1:30 PM EDT Office Visit Gynecology/Obstetrics Chantelle Myers [address] [place] [address] Backer, NICK [place] [address] [place] [address] Nurse Louis [facility] Return [place] [address] 09/26/2023 11:00 AM EDT Imaging Maternal Medicine ImagingDia [address] [place] [phone] 10/24/2023 11:00 AM EDT Imaging Maternal Medicine Dia Valadez [address] [place] [phone] Health Maintenance Due Date Last Done Comments [...] Not on filedocumented as of this encounter Procedures Procedure Name Priority Date/Time Associated Diagnosis Comments MYCODE SST1 Routine 07/15/2023 1:37 PM EDT [email or web address] Other*[id number] MYCODE INITIAL ADULT-PINK Routine 07/15/2023 1:37 PM EDT [email or web address] Other*[id number] MYCODE INITIAL ADULT-2SST Routine 07/15/2023 1:37 PM EDT [email or web address] Other*[id number] MYCODE INITIAL ADULT Routine 07/15/2023 1:37 PM EDT [email or web address] Other*[id number] MATERNAL SERUM AFP Routine 07/15/2023 1: 37 PM EDT Supervision of high risk in second trimester documented in this encounter Results * MYCODE SST2 (07/15/2023 1:37 PM EDT) MyCode Specimen Freezing of extracted DNA, whole blood and/or serum. 07/16/2023 9:[address] [facility] Blood Venous blood specimen / Unknown Venipuncture / Unknown 07/15/2023 1:37 PM EDT 07/15/2023 1:37 PM EDT Erica GAMBOA LAB BLOOD ORDAnjali DIXON LABORATORY [place] [address] [place] [address] * MYCODE SST1 (07/15/2023 1:37 PM EDT) MyCode Specimen Freezing of extracted DNA, whole blood and/or serum. 07/16/2023 9:[address] [facility] Blood Venous blood specimen / Unknown Venipuncture / Unknown 07/15/2023 1:37 PM EDT 07/15/2023 1:37 PM EDT Erica GAMBOA LAB BLOOD ORDAnjali DIXON Performing Organization Address City/[facility]/ZIP Co de Phone Number LABORATORY [place] [address] [place] [address] * MYCODE INITIAL ADULT-PINK (07/15/2023 1:37 PM EDT) MyCode Specimen Freezing of extracted DNA, whole blood and/or serum. 07/16/2023 9:[address] [facility] Blood Venous blood specimen / Unknown Venipuncture / Unknown 07/15/2023 1:37 PM EDT 07/15/2023 1:37 PM EDT Erica GAMBOA LAB BLOOD ORDAnjali DIXON [facility] [place] [address] [place] [address] * MATERNAL SERUM AFP (07/15/2023 1:37 PM EDT) Interpretation SEE BELOW 07/20/2023 6:21 PM EDT [facility] Comment:Screen negative for open NTD. Risk for ONTD <1:5000 07/20/2023 6:21 PM EDT [facility] CALC'D Gestational Age 17 07/20/2023 6:21 PM EDT [facility] [employer], Serum 40.9 ng/mL 07/20/2023 6:21 PM EDT [facility] AFP Mom 0.88 07/20/2023 6:21 PM EDT [facility] Comment: Reference Range: NTD <2.50 IDD <1.90 TWINS <4.00 TWINS IDD <3.50 TRIPLETS <4.50 The AFP test result indicates that this patient is screen negative for open NTD. It should be noted that normal test results can never guarantee the of a normal baby and that 2-3% of newborns have some type of physical or mental defect, many of which are undetectable through any known diagnostic technique. This is a screening test, not a diagnostic test. This risk assessment report is based in part on demographic data provided by the ordering physician. Please notify the laboratory promptly if any data are incorrect. For assistance with recalculations, please call your local [facility] laboratory. For assistance with interpretation of these results, please contact your Local [facility] genetic counselor or call [phone] ([phone]). Interpretive Cutoffs Screen Positive for Open NTD: > or = 2.50 adjusted MOM > or = 1.90 adjusted MOM for insulin-dependent diabetics > or = 4.00 adjusted MOM for twins > or = 3.50 adjusted MOM for twins insulin-dependent diabetics > or = 4.50 adjusted MOM for triplets For additional information, please refer to http://education.[employer]/faq/BTD28k7 (This link is being provided for informational/educational purposes only.) Date of 1 07/20/2023 6:21 PM EDT [facility] Collection Date 4 07/20/2023 6:21 PM EDT [facility] Maternal Weight 116 lbs 6:21 PM EDT [facility] EST'D Date of Delivery 4 07/20/2023 6:21 PM EDT [facility] АННА Determined By LMP 6:21 PM EDT [facility] Mother's Ethnic Origin WHITE 07/20/2023 6:21 PM EDT [facility] Number of Fetuses 1 024 6:21 PM EDT [facility] Insulin Depend Diabetic NO 07/20/2023 6:21 PM EDT [facility] Repeat Specimen NO 6:21 PM EDT [facility] HX of Neural Tube Defects NO 07/20/2023 6:21 PM EDT [facility] Prev Down SYND NO 07/20/2023 6:21 PM EDT [facility] Donor Egg NO 07/20/2023 6:21 PM EDT [facility] DORIANPlandreeY Donor Age: Egg Retrieval NOT GIVEN 07/20/2023 6:21 PM EDT [facility] Comment: Test performed by [employer] [address] [place] [address] Exercise Planner: Johana Dangelo MD,PHD,BIENVENIDO Test Reported by [employer], [address] [place], [address] [place] [address] Noel Simon M.D., Ph.D., Director of Laboratories , [facility] [id number] Blood Venous blood specimen / Unknown Venipuncture / Unknown 07/15/2023 1:37 PM EDT 07/15/2023 1:37 PM EDT Annette Isaac Backer NICK [facility] BLOOD [facility] [employer] [place] [id number] [place] [address] documented in this encounter Visit Diagnoses Diagnosis [employer] [employer] Other*[id number] Supervision of high risk in second trimester Unspecified high-risk documented in this encounter Care Teams Box Finisher Relationship Specialty [place] [address] [facility] [address] [place] [address] PCP - General 03/12/22 documented as of this encounter
--- OUTSIDE RECORDS SUMMARY | 2023-12-17 07:17 | External Medical Summary | Summary of Care ---
Author Name Unknown Organization [facility] Address [address] [place] [address] Phone [phone] Care Team Providers Care Tipple Boss Name Role Phone Nayla Alicea MD Primary Care Provider [phone] Encounter Details Date Type Department Care Team (Late st Contact Info) Description 09/25/2023 Population Health External Data Unspecified Department Allergies Active Allergy Reactions Criticality Noted Date Comments Ibuprofen 12/11/2021 Penicillins 12/11/2021 documented as of this encounter (statuses as of 09/25/2023) Medications Medication Sig Dispensed Refills Start Date End Date Status 28-0.8 MG Oral Tablet Take by mouth. Active Breast PumpIndications:Breast feeding status of mother Pump daily while breast feeding. Z39.1, АННА 12/23/23 1 Each 09/10/2023 Active documented as of this encounter (statuses as of 09/25/2023) Active Problems Problem Noted Date Diagnosed Date [...] scheduled between 39-40 weeks gestation. As per [employer]'s 2010 practice [...] encouraged 05/15/2023 Angelina Felix RN 05/15/2023 nutrition [facility] discussed. Aware of program but most [...] as of this encounter (statuses as of 09/25/2023) Resolved Problems Problem Noted Date Diagnosed Date Resolved Date Supervision of normal 05/15/2023 07/15/2023 Food insecurity 08/13/2022 05/16/2023 Overview: Per [facility] Protocol IUGR (intrauterine growth re striction) affecting care of mother 04/27/2022 07/04/2022 Overview: 06/14/22 AC noted at <1% with overall EFW of 2146 g at 2%. SYLVIE 17.7 cm. Umbilical artery Doppler normal. Cephalic presentation. BPP 8/8. [facility] recommends delivery at 37 weeks Last [...] Patient educated on resources available within the [employer] system. Studies of first-trimester SSRI exposure do [...] 12/22/21 Need for food assistance referred to [facility] and local food [employer] 12/22/2021 Lalit Gr RN 12/22/21 Poor dental hygiene encourage routine brushing and flossing and referal to local dental clinic that accepts [place] insurances 12/22/2021 Lalit Gr RN 12/22/21 education 1st trimester education given 12/22/2021 Lalit Gr RN 12/22/21 .1st have you cut down with your smoking Yes have you quit Yes have you seen a windows laptop technician No have you seen a director social No are you receiving counseling No have you received dental care during your No are you enrolled in [facility] No do you receive food stamps [...] Discussed Post visit and setting up chief media officer Will schedule PPV 06/13/2022 Estefani Chandler RN 06/13/2022 Problem Action Taken Date entered Entered by Date resolved Current needs or questions Patient denies having any current needs or questions 07/30/2022 Estefani Chandler RN 07/30/2022 Problem Action Taken Date entered Entered by Date resolved Post education Education given 07/30/2022 Estefani Chandler RN 07/30/2022 documented as of this encounter (statuses as of 09/25/2023) Immunizations Name Administration Dates Next Due TDAP [...] money to get more. Never true 05/01/2023 [place] Depression Scale Answer Date Recorded [place] Depression Scale Total 1 05/15/2023 The thought [...] Imaging Maternal Medicine [facility] [place] [phone] 09/26/2023 11:00 AM EDT Office Visit Coal Chute Worker Obstetrics Maternal Medicine, Dia [place] [address] [place] [address] [place] [address] Jenny Patino, DO [address] [place] [address] 10/11/2023 11:30 AM EDT Office Visit Gynecology/Obstetrics Chantelle [place] [address] [place] [address] Annette Daugherty CRNP [address] [facility] [place] [address] Nurse Louis [facility] Return Dia [address] [facility] [place] [address] 10/24/2023 11:00 AM EDT Imaging Maternal Medicine Imaging, Dia Myers [address] [place] [phone] 10/24/2023 11:00 AM EDT Office Visit Coal Chute Worker Obstetrics Maternal Medicine, Dia [place] [address] [place] [address] Jenny Patino, DO [address] [place] [address] 10/28/2023 2:45 PM EDT Office Visit Gynecology/Obstetrics Chantelle Myers [address] [place] [address] Varun Jacobson MD [address] [place] [address] Nurse Louis [facility] Return [place] [address] Health Maintenance Due Date Last Done Comments [...] filedocumented as of this encounter Care Teams Tipple Boss Relationship Specialty [place] [address] [address] PCP - General 03/12/22 documented as of this encounter
--- OUTSIDE RECORDS SUMMARY | 2023-12-17 07:17 | External Medical Summary | Summary of Care ---
Author Name Unknown Organization [facility] Address [address] [place] [address] Phone [phone] Care Team Providers Care Furnace Door Tender Name Role Phone Nayla Alicea MD Primary Care Provider [phone] Reason for Visit * Reason Comments Return Visit Encounter Details Date Type Department Care Team (Late st Contact Info) Description 08/12/2023 1:30 PM EDT Office Visit Gynecology/Obstetri seferino Myers [address] [facility] [place] [address] Annette Daugherty CRNP [address] [place] [address] Nurse Alka Myers Beginnings Return Dia [address] [place] [address] Supervision of high risk in second trimester*; History of section complicating ; History of prior with IUGR ; BMI less than 19,adult; Abnormal thyroid blood test Allergies Active Allergy Reactions Criticality Noted Date Comments Ibuprofen 12/11/2021 Penicillins 12/11/2021 documented as of this encounter (statuses as of 08/12/2023) Medications Medication Sig Dispensed Refills Start Date End Date Status 28-0.8 MG Oral Tablet Take by mouth. 0 Active documented as of this encounter (statuses as of 08/12/2023) Active Problems Problem Noted Date Diagnosed Date [...] encouraged 05/15/2023 Angelina Felix RN 05/15/2023 nutrition [facility] discussed. Aware of program [...] as of this encounter (statuses as of 08/12/2023) Resolved Problems Problem Noted Date Diagnosed Date Resolved Date Supervision of normal 05/15/2023 07/15/2023 Food insecurity 08/13/2022 05/16/2023 Overview: Per [facility] Protocol IUGR (intrauterine growth re striction) affecting care of mother 04/27/2022 07/04/2022 Overview: 06/14/22 AC noted at <1% with overall EFW of 2146 g at 2%. SYLVIE 17.7 cm. Umbilical artery Doppler normal. Cephalic presentation. BPP 8/8. [facility] recommends delivery at 37 weeks Last [...] Patient educated on resources available within the [employer] system. Studies of first-trimester SSRI exposure do [...] 12/22/21 Need for food assistance referred to [facility] and local food [employer] 12/22/2021 Lalit Gr RN 12/22/21 Poor dental hygiene encourage routine brushing and flossing and referal to local dental clinic that accepts [place] insurances 12/22/2021 Lalit Gr, YOU 12/22/21 education 1st trimester education given 12/22/2021 Lalit Gr RN 12/22/21 .1st have you cut down with your smoking Yes have you quit Yes have you seen a dormitory supervisor No have you seen a dialysis social worker No are you receiving counseling [...] resolved Discussed Post visit and setting up newborn hearing screener Will schedule PPV 06/13/2022 Estefani Chandler RN 06/13/2022 Problem Action Taken Date entered Entered by Date resolved Current needs or questions Patient denies having any current needs or questions 07/30/2022 Estefani Chandler RN 07/30/2022 Problem Action Taken Date entered Entered by Date resolved Post education Education given 07/30/2022 Estefani Chandler RN 07/30/2022 documented as of this encounter (statuses as of 08/12/2023) Immunizations Name Administration Dates Next Due TDAP [...] money to get more. Never true 05/01/2023 [place] Depression Scale Answer Date Recorded [place] Depression Scale Total 1 05/15/2023 The thought [...] Reading Time Taken Comments Blood Pressure 100/60 08/12/2023 1:31 PM EDT Pulse - - Temperature - - Respiratory Rate - - Oxygen Saturation - - Inhaled Oxygen Concentration - - Weight 57.6 kg (127 lb) 08/12/2023 1:31 PM EDT Height - - Body Mass Index 20.5 06/14/2023 2:49 PM EST documented in this encounter Progress Notes * Rosalind Ro LPN - 08/12/2023 1:31 PM EDT 21w0d Denies vaginal bleeding/rom + movement No new concerns * Annette Daugherty CRNP - 08/12/2023 1:29 PM EDT 21w0d Denies bleeding, pain. + movement. Completed anatomy scan with MFM, returns in a few weeks. Will recheck thyroid labs today. Return in 4 weeks. documented in this encounter Nursing Notes * Estefani Chandler RN - 08/12/2023 1:57 PM EDT Patient seen by Healthy Beginning Barrel Assembly Inspector. Patient denies any questions or concerns. documented in this encounter Plan of Treatment Upcoming Encounters Date Type Department Care Team (Late st Contact Info) Description 08/12/2023 2:00 PM EDT Laboratory Laboratory, Chantelle Myers [place] [address] [place] [phone] Edouard Myers [address] [place] [address] Abnormal thyroid blood test 08/29/2023 1:45 PM EDT Imaging Maternal Medicine Imaging, Dia Myers [address] [place] [address] 09/10/2023 1:30 PM EDT Office Visit Gynecology/Obstetri cs Chantelle Myers [address] [place] [address] Annette Daugherty CRNP [address] [place] [address] Nurse Louis [facility] Return Dia [address] [place] [address] 09/26/2023 11:00 AM EDT Imaging Maternal Medicine Imaging, Dia Myers [address] [place] [address] 10/24/2023 11:00 AM EDT Imaging Maternal Medicine Imaging, Dia Myers [address] [place] [address] Pending Results Name Type Priority Associated Diagnoses Date /Time TSH WITH FREE T4 IF INDICATED Lab Routine Abnormal thyroid blood test 08/12/2023 1:44 PM EDT Scheduled Orders Name Type Priority Associated Diagnoses Orde r Schedule TSH WITH FREE T4 IF INDICATED Lab Routine Abnormal thyroid blood test Expected: 08/12/2023, Expires: 08/11/2024 Health Maintenance Due Date Last Done Comments [...] Diagnoses Diagnosis Supervision of high risk in second trimester- Primary Unspecified high-risk History of section complicating Previous delivery, unspecified as to episode of care or not applicable History of prior with IUGR BMI less than 19,adult Body Mass Index less than 19, adult Abnormal thyroid blood test Nonspecific abnormal results of thyroid function study Abnormal thyroid blood test Nonspecific abnormal results of thyroid function study documented in this encounter Care Teams Furnace Door Tender Relationship Specialty [place] [address] [facility] [address] [place] [address] PCP - General 03/12/22 documented as of this encounter
--- OUTSIDE RECORDS SUMMARY | 2023-12-17 07:17 | External Medical Summary | Summary of Care ---
Author Name Unknown Organization [facility] Address [address] [place] [address] Phone [phone] Care Team Providers Care Motel Front Desk Clerk Name Role Phone Nayla Alicea MD Primary Care Provider [phone] Reason for Visit * Reason Comments Outpatient Testing Encounter Details Date Type Department Care Team ([facility] st Contact Info) Description 09/24/2023 3:10 PM EDT Laboratory Laboratory, [facility] [address] [place] [phone] [facility] [address] [place] [address] Arrived Allergies Active Allergy Reactions Criticality Noted [...] scheduled between 39-40 weeks gestation. As per [employer]'s 2010 practice [...] encouraged 05/15/2023 Angelina Felix RN 05/15/2023 nutrition [facility] discussed. Aware of program but [...] Doppler normal. Cephalic presentation. BPP 8/8. [facility] recommends delivery at 37 weeks Last Assessment [...] Patient educated on resources available within the [employer] system. Studies of first-trimester SSRI exposure do [...] 12/22/21 Need for food assistance referred to [facility] and local food [employer] 12/22/2021 Lalit Gr RN 12/22/21 Poor dental hygiene encourage routine brushing and flossing and referal to local dental clinic that accepts [place] insurances 12/22/2021 Lalit Gr RN 12/22/21 education 1st trimester education given 12/22/2021 Lalit Gr RN 12/22/21 .1st have you cut down with your smoking Yes have you quit Yes have you seen a corporate real estate specialist No have you seen a social service manager No are you receiving counseling No have you received dental care during your No are you enrolled in [facility] No do you receive food [...] resolved Discussed Post visit and setting up public improvement inspector Will schedule PPV 06/13/2022 Estefani Chandler RN [...] money to get more. Never true 05/01/2023 [place] Depression Scale Answer Date Recorded [place] Depression Scale Total 1 05/15/2023 The thought [...] EDT Imaging Maternal Medicine Imaging, [place] [phone] 09/26/2023 11:00 AM EDT Office Visit Political Research Scientist Obstetrics Maternal Medicine, [place] [address] Jenny Patino, DO [address] [place] [address] 10/11/2023 11:30 AM EDT Office Visit Gynecology/Obstetrics [place] [address] BackerAnnette CRNP [address] [place] [address] Nurse Louis [facility] Return [place] [address] 10/24/2023 11:00 AM EDT Imaging Maternal Medicine Imaging, [place] [phone] 10/24/2023 11:00 AM EDT Office Visit Political Research Scientist Obstetrics Maternal Medicine, Dia [place] [address] Jenny Patino, DO [address] [place] [address] 10/28/2023 2:45 PM EDT Office Visit Gynecology/Obstetrics [place]elle [place] [address] Varun Jacobson MD [address] [place] [address] Nurse Louis Healthy Beginningluis Return [place] [address] Health Maintenance Due Date Last Done Comments [...] filedocumented as of this encounter Care Teams Motel Front Desk Clerk Relationship Specialty [place] [address] [address] PCP - General 03/12/22 documented as of this encounter
--- OUTSIDE RECORDS SUMMARY | 2023-12-17 07:17 | External Medical Summary | Summary of Care ---
Author Name Unknown Organization [facility] Address [address] [place] [address] Phone [phone] Care Team Providers Care Reporting Coordinator Name Role Phone Nayla Alicea MD Primary Care Provider Encounter Details Date Type Department Care Team (Late st Contact Info) Description 08/29/2023 1:45 PM EDT Office Visit Pipe Liner Obstetrics Maternal Medicine, [facility] [address] [place] [address] Jenny Patino, DO [address] [place] [address] History of prior with IUGR *; Ultrasound for screening for growth restriction; 23 weeks gestation of Allergies Active Allergy Reactions Criticality Noted Date Comments Ibuprofen 12/11/2021 Penicillins 12/11/2021 documented as of this encounter (statuses as of 08/29/2023) Medications Medication Sig Dispensed Refills Start Date End Date Status 28-0.8 MG Oral Tablet Take by mouth. 0 Active documented as of this encounter (statuses as of 08/29/2023) Active Problems Problem Noted Date Diagnosed Date [...] scheduled between 39-40 weeks gestation. As per [employer]'s 2010 practice [...] encouraged 05/15/2023 Angelina Felix RN 05/15/2023 nutrition [facility] discussed. Aware of program but most likely [...] as of this encounter (statuses as of 08/29/2023) Resolved Problems Problem Noted Date Diagnosed Date Resolved Date Supervision of normal 05/15/2023 07/15/2023 Food insecurity 08/13/2022 05/16/2023 Overview: Per [facility] Protocol IUGR (intrauterine growth re striction) affecting care of mother 04/27/2022 07/04/2022 Overview: 06/14/22 AC noted at <1% with overall EFW of 2146 g at 2%. SYLVIE 17.7 cm. Umbilical artery Doppler normal. Cephalic presentation. BPP 8/8. [facility] recommends delivery at 37 weeks [...] Patient educated on resources available within the [employer] system. Studies of first-trimester SSRI exposure do [...] 12/22/21 Need for food assistance referred to [facility] and local food [employer] 12/22/2021 Lalit Gr RN 12/22/21 Poor dental hygiene encourage routine brushing and flossing and referal to local dental clinic that accepts [place] insurances 12/22/2021 Lalit Gr RN 12/22/21 education 1st trimester education given 12/22/2021 Lalit Gr RN 12/22/21 .1st have you cut down with your smoking Yes have you quit Yes have you seen a tool grinder operator No have you seen a oncology social worker No are you receiving counseling No have you received dental care during your No are you enrolled in [facility] No do you receive food stamps or singleton assistance No 12/22/2021 Lalit Gr RN 12/22/21 Problem Action Taken Date entered Entered by Date resolved Current needs or questions Patient denies having any current needs or questions 01/19/2022 Aneglina Felix RN 01/19/2022 Problem Action Taken Date [...] resolved Discussed Post visit and setting up avionics shop supervisor Will schedule PPV 06/13/2022 Estefani Chandler RN 06/13/2022 Problem Action Taken Date entered Entered by Date resolved Current needs or questions Patient denies having any current needs or questions 07/30/2022 Estefani Chandler RN 07/30/2022 Problem Action Taken Date entered Entered by Date resolved Post education Education given 07/30/2022 Estefani Chandler RN 07/30/2022 documented as of this encounter (statuses as of 08/29/2023) Immunizations Name Administration Dates Next Due TDAP [...] money to get more. Never true 05/01/2023 [place] Depression Scale Answer Date Recorded [place] Depression Scale Total 1 05/15/2023 The thought [...] Progress Notes * Jenny Patino DO - 08/29/2023 2:08 PM EDT Nehal presented today at 23w3d for an ultrasound for the following indications: History of prior with IUGR Ultrasound for screening for growth restriction 23 weeks gestation of Ultrasound summary: Patient presented at 23w 3d for growth assessment. Normal growth with EFW 568 g at 30%ile. Normal SYLVIE. Transverse presentation. I reviewed the ultrasound images. Nehal [...] call with any questions. Jenny Patino DO 08/29/2023 2:08 PM documented in this encounter Plan of Treatment Upcoming Encounters Date Type Department Care Team (Late st Contact Info) Description 09/10/2023 1:30 PM EDT Office Visit Gynecology/Obstetrics [facility] [address] [place] [address] Backer, NICK [place] [address] [place] [address] Nurse Louis [facility]nings Return [place] [phone] 09/26/2023 11:00 AM EDT Imaging Maternal Medicine Imaging, [place] [phone] 10/24/2023 11:00 AM EDT Imaging Maternal Medicine Imaging, Dia Velazco [place] [phone] Health Maintenance Due Date Last Done Comments [...] restriction screening for growth retardation using ultrasonics 23 weeks gestation of state, incidental documented in this encounter Care Teams Reporting Coordinator Relationship Specialty [place] [address] [address] PCP - General 03/12/22 documented as of this encounter
--- OUTSIDE RECORDS SUMMARY | 2023-12-17 07:17 | External Medical Summary | Summary of Care ---
Author Name Unknown Organization [facility] Address [address] [place] [address] Phone [phone] Care Team Providers Care Optical Worker Name Role Phone Nayla Alicea MD Primary Care Provider [phone] Encounter Details Date Type Department Care Team (Late st Contact Info) Description 08/29/2023 1:45 PM EDT Office Visit Returned Item Clerk Obstetrics Maternal Medicine, [facility] [address] [place] [address] Jenny Patino, DO [address] [place] [address] History of prior with IUGR *; Ultrasound [...] scheduled between 39-40 weeks gestation. As per [employer]'s 2010 [...] encouraged 05/15/2023 Angelina Felix RN 05/15/2023 nutrition [facility] discussed. Aware of program but most [...] artery Doppler normal. Cephalic presentation. BPP 8/8. [facility] recommends delivery at 37 weeks [...] Patient educated on resources available within the [employer] system. Studies of first-trimester SSRI exposure do [...] 12/22/21 Need for food assistance referred to [facility] and local food [employer] 12/22/2021 Lalit Gr RN 12/22/21 Poor dental hygiene encourage routine brushing and flossing and referal to local dental clinic that accepts [place] insurances 12/22/2021 Lalit Gr RN 12/22/21 education 1st trimester education given 12/22/2021 Lalit Gr RN 12/22/21 .1st have you cut down with your smoking Yes have you quit Yes have you seen a certified procedural coder No have you seen a social services analyst No are you receiving counseling No have you received dental care during your No are you enrolled in [facility] No do you receive food stamps [...] resolved Discussed Post visit and setting up video news editor Will schedule PPV 06/13/2022 Estefani Chandler RN [...] money to get more. Never true 05/01/2023 [place] Depression Scale Answer Date Recorded [place] Depression Scale Total 1 05/15/2023 The thought [...] 09/10/2023 1:30 PM EDT Office Visit Gynecology/Obstetrics [facility] [address] [place] [address] Backer, NICK [place] [address] [place] [address] Nurse Louis [facility]nings Return [place] [phone] 09/26/2023 11:00 AM EDT Imaging Maternal Medicine Imaging, [place] [phone] 10/24/2023 11:00 AM EDT Imaging Maternal Medicine Imaging, Dia Velazco [place] [phone] Health Maintenance Due Date Last Done Comments [...] incidental documented in this encounter Care Teams Optical Worker Relationship Specialty [place] [address] [address] PCP - General 03/12/22 documented as of this encounter
--- OUTSIDE RECORDS SUMMARY | 2023-12-17 07:17 | External Medical Summary | Summary of Care ---
Author Name Unknown Organization [facility] Address [address] [place] [address] Phone [phone] Care Team Providers Care Aids Counselor Name Role Phone Nayla Alicea MD Primary Care Provider [phone] Reason for Visit * Reason Comments Return Visit Encounter Details Date Type Department Care Team (Late st Contact Info) Description 09/10/2023 1:30 PM EDT Office Visit Gynecology/Obstetri seferino Myers [address] [facility] [place] [address] Annette Daugherty CRNP [address] [facility] [place] [address] Nurse Alka Myers Beginnings Return Dia [address] [place] [address] Supervision of high risk in second trimester*; [...] Oral Tablet Take by mouth. 0 Active Breast PumpIndications:Breast feeding status of mother Pump daily while breast feeding. Z39.1, АННА 12/23/23 1 Each 0 09/10/2023 Active documented as of this encounter [...] scheduled between 39-40 weeks gestation. As per [employer]'s 2010 practice [...] encouraged 05/15/2023 Angelina Felix RN 05/15/2023 nutrition [facility] discussed. Aware of program but [...] artery Doppler normal. Cephalic presentation. BPP 8/8. [facility] recommends delivery at 37 weeks Last [...] Patient educated on resources available within the [employer] system. Studies of first-trimester SSRI exposure do [...] 12/22/21 Need for food assistance referred to [facility] and local food [employer] 12/22/2021 Lalit Gr RN 12/22/21 Poor dental hygiene encourage routine brushing and flossing and referal to local dental clinic that accepts [place] insurances 12/22/2021 Lalit Gr RN 12/22/21 education 1st trimester education given 12/22/2021 Lalit Gr RN 12/22/21 .1st have you cut down with your smoking Yes have you quit Yes have you seen a trap puller No have you seen a social services technician No are you receiving counseling No have [...] resolved Discussed Post visit and setting up labor contract analyst Will schedule PPV 06/13/2022 Estefani Chandler [...] money to get more. Never true 05/01/2023 [place] Depression Scale Answer Date Recorded [place] Depression Scale Total 1 05/15/2023 The thought [...] Sign Reading Time Taken Comments Blood Pressure 96/58 09/10/2023 1:41 PM EDT Pulse - - Temperature - - Respiratory Rate - - Oxygen Saturation - - Inhaled Oxygen Concentration - - Weight 61 kg (134 lb 6.4 oz) 09/10/2023 1:41 PM EDT Height - - Body Mass Index 21.69 06/14/2023 2:49 PM EST documented in this encounter Progress Notes * Annette Daugherty CRNP - 09/10/2023 1:48 PM EDT 25w1d + movement. No ctx/bleeding. Labs ordered for next visit, including TSH. Continues to follow up with MFM. Recommend Tdap at 27+ weeks. Will schedule a future OB visit with MD to discuss TOLAC. 2 week return NICK Whelan * Rosalind Ro LPN - 09/10/2023 1:43 PM EDT 25w1d Denies vaginal bleeding/rom + movement No new concerns documented in this encounter Nursing Notes * Estefani Chandler RN - 09/10/2023 2:25 PM EDT Patient seen by Healthy Beginning Head Start Coordinator. Patient denies any questions or concerns. Estefani Chandler RN documented in this encounter Plan of Treatment Upcoming Encounters Date Type Department Care Team (Late st Contact Info) Description 09/24/2023 2:30 PM EDT Office Visit Gynecology/Obstetrics [place] [address] Laura Cunningham, [place] [address] [facility] [place] [address] Nurse Louis Healthy [facility]nings Return [place] [address] 09/26/2023 11:00 AM EDT Imaging Maternal Medicine Imaging, [place] [phone] 10/24/2023 11:00 AM EDT Imaging Maternal Medicine Imaging, [place] [phone] 10/28/2023 2:45 PM EDT Office Visit Gynecology/Obstetrics Chantelle Myers [address] [place] [address] Varun Jacobson MD [address] [place] [address] Nurse Louis Healthy [facility]nings Return Dia [address] [place] [address] Scheduled Orders Name Type Priority Associated Diagnoses Orde r Schedule CBC WITH WBC DIFFERENTIAL AND ANEMIA REFLEX WORKUP Lab Routine Supervision of high risk in second trimester Expected: 09/24/2023 (Approximate), Expires: 09/09/2024 SYPHILIS ANTIBODY SCREEN WITH REFLEX TO RPR Lab Routine Supervision of high risk in second trimester Expected: 09/24/2023 (Approximate), Expires: 09/09/2024 50-G GESTATIONAL GLUCOSE, 1 HOUR Lab Routine Supervision of high risk in second trimester Expected: 09/24/2023 (Approximate), Expires: 09/09/2024 TSH WITH FREE T4 IF INDICATED Lab Routine Abnormal thyroid blood test Expected: 09/24/2023 (Approximate), Expires: 09/09/2024 Health Maintenance Due Date Last Done Comments [...] study documented in this encounter Care Teams Aids Counselor Relationship Specialty [place] [address] [address] PCP - General 03/12/22 documented as of this encounter
--- OUTSIDE RECORDS SUMMARY | 2023-12-17 07:17 | External Medical Summary ---
Author Name Unknown Address Unknown Organization K01:LABORATORY [facility] [place], [place] - [address] [place] [address] Laboratory Report Ordering Provider Test Date Status WEI GUSMANASHLEY 09/24/2023 16:02:00 Final Observation Date Value Abnormality Reference (Units ) Status Glucose [Moles/volume] in Serum or Plasma --1 hour post 50 g glucose PO 09/24/2023 16:02:00 85 70-129 (mg/dL) Final Performing Location [facility]ORY [facility] [place], [place] - [address] [place] [address]
--- OUTSIDE RECORDS SUMMARY | 2023-12-17 07:17 | External Medical Summary | Summary of Care ---
Author Name Unknown Organization [facility] Address [address] [place] [address] Phone [phone] Care Team Providers Care Traffic Court Magistrate Name Role Phone Nayla Alicea MD Primary Care Provider [phone] Reason for Visit * Reason Comments Outpatient Testing Encounter Details Date Type Department Care Team (Late st Contact Info) Description 09/24/2023 3:10 PM EDT Laboratory Laboratory, [facility] [address] [place] [phone] [facility] [address] [place] [address] Supervision of high risk in second trimester; Abnormal thyroid blood test Allergies Active Allergy [...] Lab Results Component Value Date/Time TSH - REJI 0.26 (L) 06/14/2023 03:06 PM T4, Free [...] scheduled between 39-40 weeks gestation. As per [employer]'s 2010 practice [...] encouraged 05/15/2023 Angelina Felix RN 05/15/2023 nutrition [facility] discussed. Aware of program but most likely [...] Patient educated on resources available within the [employer] system. Studies of first-trimester SSRI exposure do [...] 12/22/21 Need for food assistance referred to [facility] and local food [employer] 12/22/2021 Lalit Gr RN 12/22/21 Poor dental hygiene encourage routine brushing and flossing and referal to local dental clinic that accepts [place] insurances 12/22/2021 Lalit Gr RN 12/22/21 education 1st trimester education given 12/22/2021 Lalit Gr RN 12/22/21 .1st have you cut down with your smoking Yes have you quit Yes have you seen a change manager No have you seen a social worker palliative care No are you receiving counseling No have you received dental care during your No are you enrolled in [facility] No do you receive food stamps or [...] resolved Discussed Post visit and setting up plastics worker Will schedule PPV 06/13/2022 Estefani Chandler RN [...] money to get more. Never true 05/01/2023 [place] Depression Scale Answer Date Recorded [place] Depression Scale Total 1 05/15/2023 The thought [...] Medicine Imaging, Dia Myers [address] [place] [phone] 09/26/2023 11:00 AM EDT Office Visit Evp Sales Obstetrics Maternal Medicine, Dia [address] [place] [address] Jenny Patino, DO [address] [place] [address] 10/11/2023 11:30 AM EDT Office Visit Gynecology/Obstetrics [facility] [address] Annette Daugherty CRNP [address] [place] [address] Nurse Louis [facility] Return Dia [address] [place] [address] 10/24/2023 11:00 AM EDT Imaging Maternal Medicine [place], [place] [phone] 10/24/2023 11:00 AM EDT Office Visit Evp Sales Obstetrics Maternal Medicine, Dia Myers [address] [place] [address] Jenny Patino, DO [address] [place] [address] 10/28/2023 2:45 PM EDT Office Visit Gynecology/Obstetrics Chantelle [place]s [address] [place] [address] Varun Jacobson MD [address] [place] [address] Nurse Louis Healthy Beginnings Return Dia [address], [place] [address] Pending Results Name Type Priority Associated Diagnoses Date /Time CBC WITH WBC DIFFERENTIAL AND ANEMIA REFLEX WORKUP Lab Routine Supervision of high risk in second trimester 09/24/2023 4:02 PM EDT SYPHILIS ANTIBODY SCREEN WITH REFLEX TO RPR Lab Routine Supervision of high risk in second trimester 09/24/2023 4:02 PM EDT 50-G GESTATIONAL GLUCOSE, 1 HOUR Lab Routine Supervision of high risk in second trimester 09/24/2023 4:02 PM EDT TSH WITH FREE T4 IF INDICATED Lab Routine Abnormal thyroid blood test 09/24/2023 4:02 PM EDT ANEMIA CBC Lab Routine Supervision of high risk in second trimester 09/24/2023 4:02 PM EDT DIFFERENTIAL, AUTOMATED Lab Routine Supervision of high risk in second trimester 09/24/2023 4:02 PM EDT ANEMIA REFLEX CHEMISTRY HOLD Lab Routine Supervision of high risk in second trimester 09/24/2023 4:02 PM EDT SYPHILIS ANTIBODY SCREEN Lab Routine Supervision of high risk in second trimester 09/24/2023 4:02 PM EDT Health Maintenance Due Date Last Done Comments [...] Diagnosis Supervision of high risk in second trimester Unspecified high-risk Abnormal thyroid blood test Nonspecific abnormal results of thyroid function study documented in this encounter Care Teams Traffic Court Magistrate Relationship Specialty [place] [address] [address] PCP - General 03/12/22 documented as of this encounter
--- OUTSIDE RECORDS SUMMARY | 2023-12-17 07:17 | External Medical Summary ---
Author Name Unknown Address Unknown Organization K01:LABORATORY [facility] [place] - [address] [place] [address] Laboratory Report Ordering Provider Test Date Status NASEEMBACKER 09/24/2023 16:02:00 Final Observation Date Value Abnormality Reference (Units ) Status WBC, Total 09/24/2023 16:02:00 9.98 4.00-10.8 0 (K/uL) Final RBC 09/24/2023 16:02:00 3.95 3.85-5.15 (M/uL) Final Hemoglobin 09/24/2023 16:02:00 12.3 12.0-15.3 (g/dL) Final Anemia reflex testing trigge rs on a HGB < 12.0 for Females and HGB < 13.0 for Males in accordance with the WHO Anemia Guidelines
Anemia reflex testing triggers on a HGB < 12.0 for Females and HGB < 13.0 for Males in accordance with the WHO Anemia Guidelines HCT 09/24/2023 16:02:00 36.9 36.0-45.2 (%) Final MCV 09/24/2023 16:02:00 93.4 81.5-97.5 (fL) Final MCH 09/24/2023 16:02:00 31.1 27.0-34.0 (pg) Final MCHC 09/24/2023 16:02:00 33.3 32.0-36.0 (g/dL) Final RDW 09/24/2023 16:02:00 12.1 11.5-15.5 (%) Final Platelets 09/24/2023 16:02:00 272 140-400 (K /uL) Final MPV 09/24/2023 16:02:00 11.4 6.6-11.1 ( fL) Final Nucleated erythrocytes/100 leukocytes [Ratio] in Blood by Automated count 09/24/2023 16:02:00 0 <=0 (/100 WBCs) [facility] Performing Location LAB[facility]ATORY [facility] - [address] [facility] [place] [address]
--- OUTSIDE RECORDS SUMMARY | 2023-12-17 07:17 | External Medical Summary | Summary of Care ---
Author Name Unknown Organization [facility] Address [address] [place] [address] Phone [phone] Care Team Providers Care Bobbin Painter Name Role Phone Nayla Alicea MD Primary Care Provider [phone] Reason for Visit * Reason Comments Outpatient Testing Encounter Details Date Type Department Care Team (Late st Contact Info) Description 08/12/2023 2:00 PM EDT Laboratory Laboratory, [facility] [address] [place] [phone] [facility] [address] [place] [address] Abnormal thyroid blood test Allergies Active Allergy [...] scheduled between 39-40 weeks gestation. As per [employer]'s 2010 practice [...] encouraged 05/15/2023 Angelina Felix RN 05/15/2023 nutrition [facility] discussed. Aware of program but most likely [...] artery Doppler normal. Cephalic presentation. BPP 8/8. [facility] recommends delivery at 37 [...] Patient educated on resources available within the [employer] system. Studies of first-trimester SSRI exposure do [...] 12/22/21 Need for food assistance referred to [facility] and local food [employer] 12/22/2021 Lalit Gr RN 12/22/21 Poor dental hygiene encourage routine brushing and flossing and referal to local dental clinic that accepts [place] insurances 12/22/2021 Lalit Gr RN 12/22/21 education 1st trimester education given 12/22/2021 Lalit Gr RN 12/22/21 .1st have you cut down with your smoking Yes have you quit Yes have you seen a surgeon assistant No have you seen a director of social media marketing No are you receiving counseling No have you received dental care during your No are you enrolled in [facility] No do you receive food stamps or [...] resolved Discussed Post visit and setting up lead miner Will schedule PPV 06/13/2022 Estefani Chandler RN [...] money to get more. Never true 05/01/2023 [place] Depression Scale Answer Date Recorded [place] Depression Scale Total 1 05/15/2023 The thought [...] Contact Info) Description 08/29/2023 1:45 PM EDT Imaging Maternal Medicine ImagingDia [address] [place] [phone] 09/10/2023 1:30 PM EDT Office Visit Gynecology/Obstetrics [facility] Louis [address] [place] [address] Backer, NICK [place] [address] [place] [address] Nurse Louis Healthy Beginnings Return Dia [address] [place] [address] 09/26/2023 11:00 AM EDT Imaging Maternal Medicine ImagingDiagail [place] [phone] 10/24/2023 11:00 AM EDT Imaging Maternal Medicine ImagingDiagail [place] [phone] Pending Results Name Type Priority Associated Diagnoses Date /Time TSH WITH FREE T4 IF INDICATED Lab Routine Abnormal thyroid blood test 08/12/2023 1:44 PM EDT Health Maintenance Due Date Last [...] as of this encounter Visit Diagnoses Diagnosis Abnormal thyroid blood test Nonspecific abnormal results of thyroid function study documented in this encounter Care Teams Bobbin Painter Relationship Specialty [place] [address] [address] PCP - General 03/12/22 documented as of this encounter
--- OUTSIDE RECORDS SUMMARY | 2023-12-17 07:17 | External Medical Summary | Summary of Care ---
Author Name Unknown Organization [facility] Address [address] [place] [address] Phone [phone] Care Team Providers Care Transplant Nurse Practitioner Name Role Phone Nayla Alicea MD Primary Care Provider [phone] Encounter Details Date Type Department Care Team (Late st Contact Info) Description 09/17/2023 Orders Only PATIENT PORTAL DO NOT DELETE THIS DEPT [place] [id number] Allergies Active Allergy Reactions Criticality Noted Date Comments Ibuprofen 12/11/2021 Penicillins 12/11/2021 documented as of this encounter (statuses as of 09/17/2023) Medications Medication Sig Dispensed Refills Start Date End Date Status 28-0.8 MG Oral Tablet Take by mouth. 0 Active Breast PumpIndications:Breast feeding status of mother Pump daily while breast feeding. Z39.1, АННА 12/23/23 1 Each 0 09/10/2023 Active documented as of this encounter (statuses as of 09/17/2023) Active Problems Problem Noted Date Diagnosed Date [...] scheduled between 39-40 weeks gestation. As per [employer]'s 2010 practice [...] encouraged 05/15/2023 Angelina Felix RN 05/15/2023 nutrition [facility] discussed. Aware of program but most [...] as of this encounter (statuses as of 09/17/2023) Resolved Problems Problem Noted Date Diagnosed Date Resolved Date Supervision of normal 05/15/2023 07/15/2023 Food insecurity 08/13/2022 05/16/2023 Overview: Per [facility] Protocol IUGR (intrauterine growth re striction) affecting care of mother 04/27/2022 07/04/2022 Overview: 06/14/22 AC noted at <1% with overall EFW of 2146 g at 2%. SYLVIE 17.7 cm. Umbilical artery Doppler normal. Cephalic presentation. BPP 8/8. [facility] recommends delivery at 37 weeks Last [...] Patient educated on resources available within the [employer] system. Studies of first-trimester SSRI exposure do [...] 12/22/21 Need for food assistance referred to [facility] and local food [employer] 12/22/2021 Lalit Gr RN 12/22/21 Poor dental hygiene encourage routine brushing and flossing and referal to local dental clinic that accepts [place] insurances 12/22/2021 Lalit Gr RN 12/22/21 education 1st trimester education given 12/22/2021 Lalit Gr RN 12/22/21 .1st have you cut down with your smoking Yes have you quit Yes have you seen a integrity engineer No have you seen a social media editor No are you receiving counseling No have you received dental care during your No are you enrolled in [facility] No do you receive food stamps [...] resolved Discussed Post visit and setting up laboratory administrative director Will schedule PPV 06/13/2022 Estefani Chandler RN 06/13/2022 Problem Action Taken Date entered Entered by Date resolved Current needs or questions Patient denies having any current needs or questions 07/30/2022 Estefani Chandler RN 07/30/2022 Problem Action Taken Date entered Entered by Date resolved Post education Education given 07/30/2022 Estefani Chandler RN 07/30/2022 documented as of this encounter (statuses as of 09/17/2023) Immunizations Name Administration Dates Next Due TDAP [...] money to get more. Never true 05/01/2023 [place] Depression Scale Answer Date Recorded [place] Depression Scale Total 1 05/15/2023 The thought [...] 09/24/2023 2:30 PM EDT Office Visit Gynecology/Obstetrics Chantelle Myers [address] [place] [address] Laura Cunningham, RAZA [address] [facility] [place] [address] Nurse Louis Healthy Beginnings Return Dia [address] [place] [address] 09/26/2023 11:00 AM EDT Imaging Maternal Medicine ImagingDia [address] [place] [address] 10/24/2023 11:00 AM EDT Imaging Maternal Medicine Imaging, Dia Myers [address] [place] [address] 10/28/2023 2:45 PM EDT Office Visit Gynecology/Obstetrics Chantelle Myers [address] [place] [address] Varun Jacobson MD [address] [place] [address] Nurse Louis Healthy Beginnings Return Dia [address] [place] [address] Health Maintenance Due Date Last Done Comments [...] filedocumented as of this encounter Care Teams Transplant Nurse Practitioner Relationship Specialty [place] [address] [address] PCP - General 03/12/22 documented as of this encounter
--- OUTSIDE RECORDS SUMMARY | 2023-12-17 07:17 | External Medical Summary | Summary of Care ---
Author Name Unknown Organization [facility] Address [address] [place] [address] Phone [phone] Care Team Providers Care Pneumatic Tester Mechanic Name Role Phone Nayla Alicea MD Primary Care Provider [phone] Reason for Visit * Reason Comments Return Visit Encounter Details Date Type Department Care Team (Late st Contact Info) Description 08/12/2023 1:30 PM EDT Office Visit Gynecology/Obstetri seferino Myers [address] [facility] [place] [address] Annette Daugherty CRNP [address] [facility] [place] [address] Nurse Alka Myers Beginnings Return Dia [address] [place] [address] Supervision of high risk in second trimester*; [...] scheduled between 39-40 weeks gestation. As per [employer]'s 2010 practice [...] encouraged 05/15/2023 Angelina Felix RN 05/15/2023 nutrition [facility] discussed. Aware of program [...] artery Doppler normal. Cephalic presentation. BPP 8/8. [facility] recommends delivery at 37 weeks Last [...] Patient educated on resources available within the [facility] system. Studies of first-trimester SSRI exposure do [...] 12/22/21 Need for food assistance referred to [facility] and local food [employer] 12/22/2021 Lalit Gr RN 12/22/21 Poor dental hygiene encourage routine brushing and flossing and referal to local dental clinic that accepts [place] insurances 12/22/2021 Lalit Gr, YOU 12/22/21 education 1st trimester education given 12/22/2021 Lalit Gr RN 12/22/21 .1st have you cut down with your smoking Yes have you quit Yes have you seen a cartoon animator No have you seen a health social work professor No are you receiving [...] resolved Discussed Post visit and setting up self propelled hot mix roller operator Will schedule PPV 06/13/2022 Estefani Chandler [...] money to get more. Never true 05/01/2023 [place] Depression Scale Answer Date Recorded [place] Depression Scale Total 1 05/15/2023 The thought [...] 08/12/2023 1:57 PM EDT Patient seen by Alka Beginning Equipment Maintenance Engineer. Patient denies any questions or concerns. have you cut down with your smoking n/a have you quit n/a have you seen a cartoon animator no have you seen a health social work professor no are you receiving counseling no have you received dental care during your no are you enrolled in WIC yes do you receive food stamps or singleton assistance no documented in this encounter Plan of Treatment Upcoming Encounters Date Type Department Care Team (Late st Contact Info) Description 08/29/2023 1:45 PM EDT Imaging Maternal Medicine Imaging, Dia Myers [address] [place] [address] 09/10/2023 1:30 PM EDT Office Visit Gynecology/Obstetrics Chantelle Pickenss [address] [place] [address] Annette Daugherty CRNP [address] [place] [address] Nurse Louis Healthy Beginnings Return Dia [address] [place] [address] 09/26/2023 11:00 AM EDT Imaging Maternal Medicine ImagingDiagail [address] [place] [address] 10/24/2023 11:00 AM EDT Imaging Maternal Medicine Imaging, Dia [address] [place] [address] Pending Results Name Type Priority Associated Diagnoses [...] study documented in this encounter Care Teams Pneumatic Tester Mechanic Relationship Specialty [place] [address] [address] PCP - General 03/12/22 documented as of this encounter
--- OUTSIDE RECORDS SUMMARY | 2023-12-17 07:17 | External Medical Summary | Summary of Care ---
Author Name Unknown Organization [facility] Address [address] [place] [address] Phone [phone] Care Team Providers Care Solar Sales Energy Advisor Name Role Phone Nayla Alicea MD Primary Care Provider [phone] Reason for Visit * Reason Comments Return Visit Encounter Details Date Type Department Care Team (Late st Contact Info) Description 09/10/2023 1:30 PM EDT Office Visit Gynecology/Obstetri seferino Myers [address] [facility] [place] [address] Annette Daugherty CRNP [address] [facility] [address] Nurse Alka Myers Beginnings Return Dia [address] [facility] [place] [address] Supervision of high risk in second trimester*; [...] scheduled between 39-40 weeks gestation. As per [employer]'s 2010 practice [...] encouraged 05/15/2023 Angelina Felix RN 05/15/2023 nutrition [facility] discussed. Aware of program but [...] artery Doppler normal. Cephalic presentation. BPP 8/8. [facility] recommends delivery at 37 weeks [...] Patient educated on resources available within the [employer] system. Studies of first-trimester SSRI exposure do [...] 12/22/21 Need for food assistance referred to [facility] and local food [employer] 12/22/2021 Lalit Gr RN 12/22/21 Poor dental hygiene encourage routine brushing and flossing and referal to local dental clinic that accepts [place] insurances 12/22/2021 Lalit Gr RN 12/22/21 education 1st trimester education given 12/22/2021 Lalit Gr RN 12/22/21 .1st have you cut down with your smoking Yes have you quit Yes have you seen a cash management clerk No have you seen a psychiatric social worker No are you receiving counseling No have you received dental care during your No are you enrolled in [facility] No do you receive food [...] resolved Discussed Post visit and setting up flow worker Will schedule PPV 06/13/2022 Estefani Chandler [...] money to get more. Never true 05/01/2023 [place] Depression Scale Answer Date Recorded [place] Depression Scale Total 1 05/15/2023 The thought [...] Will schedule a future OB visit with to discuss TOLAC. 2 week return NICK Whelan * Rosalind Ro LPN - 09/10/2023 1:43 PM EDT 25w1d Denies vaginal bleeding/rom + movement No new concerns documented in this encounter Plan of Treatment Upcoming Encounters Date Type Department Care Team (Late st Contact Info) Description 09/24/2023 2:30 PM EDT Office Visit Gynecology/Obstetrics Boswellaiden Pickenss [address] [place] [address] Laura Cunningham CNM [address] [place] [address] Nurse Alka Myers Beginnings Return Dia [address] [place] [address] 09/26/2023 11:00 AM EDT Imaging Maternal Medicine Imaging, Dia [address] [place] [address] 10/24/2023 11:00 AM EDT Imaging Maternal Medicine Imaging, Dia Myers [address] [place] [address] 10/28/2023 2:45 PM EDT Office Visit Gynecology/Obstetrics Chantelle Myers [address] [place] [address] Varun Jacobson MD [address] [place] [address] Nurse Alka Myers Beginnings Return Dia [address] [place] [address] Scheduled Orders Name Type Priority Associated Diagnoses [...] study documented in this encounter Care Teams Solar Sales Energy Advisor Relationship Specialty [place] [address] [place] [phone] PCP - General 03/12/22 documented as of this encounter
--- OUTSIDE RECORDS SUMMARY | 2023-12-17 07:17 | External Medical Summary ---
Author Name Unknown Address Unknown Organization K01:LABORATORY [facility] - [address] [facility] [address] Laboratory Report Ordering Provider Test Date Status TY GUSMAN 09/24/2023 16:02:00 Final Observation Date Value Abnormality Reference (Units ) Status SYNC LEUKOCYTES IN BLOOD BY AUTOMATED COUNT 09/24/2023 16:02:00 9.98 4.00-10.80 (K/uL) Final Segs 09/24/2023 16:02:00 68.5 40.0-75.0 (%) Final Lymphs % 09/24/2023 16:02:00 22.7 18.0-42.0 (%) Final Monos 09/24/2023 16:02:00 6.6 1.0-11.0 (%) Final Eosinophils 09/24/2023 16:02:00 0.9 0.0-6.0 (%) Final Basos 09/24/2023 16:02:00 0.1 0.0-2.0 (%) Final Immature Granulocyte, Percent 09/24/2023 16:02:00 1.2 0.0-2.0 (%) Final Absolute Segs 09/24/2023 16:02:00 6.83 1.80-7.70 (K/uL) Final Lymphs, absolute 09/24/2023 16:02:00 2.27 1.00-4.80 (K/ul) Final Monos, Abs 09/24/2023 16:02:00 0.66 0.00-1.10 (K/uL) Final Eos, Abs 09/24/2023 16:02:00 0.09 0.00-0.70 (K/uL) Final Basos, Abs 09/24/2023 16:02:00 0.01 0.00-0.20 (K/uL) Final Immature Granulocytes, Number 09/24/2023 16:02:00 0.12 0.00-0.20 (K/uL) Final Performing Location LABORATORY [facility] - [address] [facility] [address]
--- OUTSIDE RECORDS SUMMARY | 2023-12-17 07:18 | External Medical Summary ---
Author Name Unknown Address Unknown Organization K01:LABORATORY [facility] - [address] [place] [address] Laboratory Report Ordering Provider Test Date Status LUIZ VYAS 07/15/2023 13:37:21 Final Observation Date Value Abnormality Reference (Units ) Status MYCODE SPECIMEN-SST 07/15/2023 13:37:21 Freezing of extracted DNA, whole blood and/or serum. Final Performing Location LABORATORY [facility] - [address] [place] [address]
--- OUTSIDE RECORDS SUMMARY | 2023-12-17 07:18 | External Medical Summary | Summary of Care ---
Author Name Unknown Organization [facility] Address [address] [place] [address] Phone [phone] Care Team Providers Care Inside Sales Agent Name Role Phone Nayla Alicea MD Primary Care Provider [phone] Reason for Visit * Reason Comments Return Visit Encounter Details Date Type Department Care Team (Late st Contact Info) Description 07/15/2023 1:30 PM EDT Office Visit Gynecology/Obstetri seferino Myers [address] [facility] [place] [address] Annette Daugherty CRNP [address] [place] [address] Nurse Alka Myers Beginnings Return Dia [address] [place] [address] Supervision of high risk in second trimester*; History of section complicating ; History of prior with IUGR ; BMI less than 19,adult; Abnormal thyroid blood test Allergies Active Allergy Reactions Criticality Noted Date Comments Ibuprofen 12/11/2021 Penicillins 12/11/2021 documented as of this encounter (statuses as of 07/15/2023) Medications Medication Sig Dispensed Refills Start Date End Date Status 28-0.8 MG Oral Tablet Take by mouth. 0 Active documented as of this encounter (statuses as of 07/15/2023) Active Problems Problem Noted Date Diagnosed Date [...] scheduled between 39-40 weeks gestation. As per [employer] [employer]'s 2010 practice [...] weeks after 24w Last Assessment & Plan: Discussed that patients with a history of IUGR pregnancies are at risk for recurrence. Discussed that there are currently no known interventions for prevention of subsequent IUGR aside from eliminating possible risk factors such as poor nutrition, poor care, tobacco/ETOH exposure. Recommend Maternal Medicine ultrasound for growth every 4 to 6 weeks after 24 weeks gestation. Recommend for patients with a history of significant IUGR of unknown etiology to have genetic screening in any subsequent pregnancies since abnormal maternal analytes can be associated with an increased risk for IUGR. BMI less than 19,adult 05/15/2023 Overview: Pre [...] encouraged 05/15/2023 Angelina Felix RN 05/15/2023 nutrition [facility] discussed. Aware of program but most likely will decline 05/15/2023 Angelina Felix RN 05/15/2023 Problem Action Taken Date entered Entered by Date resolved Current needs or questions Patient denies having any current needs or questions 07/15/2023 Estefani Chandler RN 07/15/2023 Racing heart beat 01/19/2022 Overview: See 01/26/22 Cardiology consult. ECHO and Zio Patch monitory x 7 days ordered , supervision, high-risk 12/22/2021 Overview: Primary 06/20/2022 EDC 12/23/2023 Estimated Date of Delivery Comme nts Yes 12/23/2023 Based on Ultraso und documented as of this encounter (statuses as of 07/15/2023) Resolved Problems Problem Noted Date Diagnosed Date Resolved Date Supervision of normal 05/15/2023 07/15/2023 Food insecurity 08/13/2022 05/16/2023 Overview: Per [facility] Protocol IUGR (intrauterine growth re striction) affecting care of mother 04/27/2022 07/04/2022 Overview: 06/14/22 AC noted at <1% with overall EFW of 2146 g at 2%. SYLVIE 17.7 cm. Umbilical artery Doppler normal. Cephalic presentation. BPP 8/8. [facility] recommends delivery at 37 weeks Last [...] the delivery will be at 37+ weeks, NHM steroids are not indicated. Message will be [...] Patient educated on resources available within the [employer] system. Studies of first-trimester SSRI exposure do [...] 12/22/21 Need for food assistance referred to [facility] and local [employer] 12/22/2021 Lalit Gr RN 12/22/21 Poor dental hygiene encourage routine brushing and flossing and referal to local dental clinic that accepts [place] insurances 12/22/2021 Lalit Gr RN 12/22/21 education 1st trimester education given 12/22/2021 Lalit Gr RN 12/22/21 .1st have you cut down with your smoking Yes have you quit Yes have you seen a maintenance mechanic helper No have you seen a psychotherapist social worker No are you receiving counseling [...] resolved Discussed Post visit and setting up detailer furniture Will schedule PPV 06/13/2022 Estefani Chandler RN 06/13/2022 Problem Action Taken Date entered Entered by Date resolved Current needs or questions Patient denies having any current needs or questions 07/30/2022 Estefani Chandler RN 07/30/2022 Problem Action Taken Date entered Entered by Date resolved Post education Education given 07/30/2022 Estefani Chandler RN 07/30/2022 documented as of this encounter (statuses as of 07/15/2023) Immunizations Name Administration Dates Next Due TDAP [...] money to get more. Never true 05/01/2023 [place] Depression Scale Answer Date Recorded [place] Depression Scale Total 1 05/15/2023 The thought [...] Reading Time Taken Comments Blood Pressure 96/58 07/15/2023 1:15 PM EDT Pulse - - Temperature - - Respiratory Rate - - Oxygen Saturation - - Inhaled Oxygen Concentration - - Weight 53.1 kg (117 lb) 07/15/2023 1:15 PM EDT Height - - Body Mass Index 18.88 06/14/2023 2:49 PM EST documented in this encounter Progress Notes * Annette Daugherty CRNP - 07/15/2023 1:27 PM EDT 17w0d Feels well. Occasional cramping - admits she could do a better job with water intake. No bowel/bladder symptoms or bleeding. Low risk NIPT, will get MSAFP today. Planning anatomy scan with MFM. 4 week return NCIK Whelan documented in this encounter Nursing Notes * Estefani Chandler RN - 07/15/2023 1:27 PM EDT Patient seen by [facility] Button Attaching Machine Operator. Patient denies any questions or concerns. * Rosalind Ro LPN - 07/15/2023 1:16 PM EDT 17w0d Denies vaginal bleeding/rom + movement Noticing some cramping Anatomy with MFM documented in this encounter Plan of Treatment Upcoming Encounters Date Type Department Care Team (Late st Contact Info) Description 07/15/2023 2:00 PM EDT [facility] [address] [place] [address] [facility] [address] [facility] [place] [address] [employer] Other*[id number]; Supervision of high risk in second trimester 07/30/2023 12:45 PM EDT Office Visit Commercial Project Manager Obstetrics Maternal Medicine, [place] [address] [place] [address] Jenny Patino [address] [place] [address] 07/30/2023 12:45 PM EDT Imaging Radiology [facility] [address] [place] [address] 08/12/2023 1:30 PM EDT Office Visit Gynecology/Obstetri [facility] [address] [place] [address] Annette Daugherty CRNP [address] [place] [address] Nurse Louis Healthy Beginnings Return Dia [address] [place] [address] Pending Results Name Type Priority Associated Diagnoses Date /Time MATERNAL SERUM AFP Lab Routine Supervision of high risk in second trimester 07/15/2023 1:37 PM EDT Scheduled Orders Name Type Priority Associated Diagnoses Orde r Schedule MATERNAL SERUM AFP Lab Routine Supervision of high risk in second trimester Expected: 07/15/2023 (Approximate), Expires: 07/14/2024 Health Maintenance Due Date Last Done Comments Depression Screening 2012 GARDASIL-HPV IMMUNIZATION SERIES (1 - 3-dose series) 12/21/2015 Hepatitis B (1 of 3 - 19+ 3-dose series) 12/21/2019 COVID-19 Vaccine (1 - 2022-2 4 season) 2023 Influenza Vaccine (FLU shot) (#1) 2023 Gonorrhea / Chlamydia Screen 05/15/202402/2024, 12/22/2021 Pap [...] Nonspecific abnormal results of thyroid function study [employer] Other*[id number] Supervision of high risk in second trimester Unspecified high-risk documented in this encounter Care Teams Inside Sales Agent Relationship Specialty [place] [address] [place] [address] [address] PCP - General 03/12/22 documented as of this encounter
--- OUTSIDE RECORDS SUMMARY | 2023-12-17 07:18 | External Medical Summary | Summary of Care ---
Author Name Unknown Organization [facility] Address [address] [place] [address] Phone [phone] Care Team Providers Care Cat Scan Tech Name Role Phone Nayla Alicea MD Primary Care Provider [phone] Reason for Visit * Reason Comments Return Visit Encounter Details Date Type Department Care Team (Late st Contact Info) Description 08/12/2023 1:30 PM EDT Office Visit Gynecology/Obstetri seferino Myers [address] [facility] [place] [address] Annette Daugherty CRNP [address] [place] [address] Nurse Alka Myers Beginnings Return Dia [address] [place] [address] Supervision of high risk in second trimester*; [...] scheduled between 39-40 weeks gestation. As per [employer]'s 2010 practice [...] encouraged 05/15/2023 Angelina Felix RN 05/15/2023 nutrition [facility] discussed. Aware of program but most [...] artery Doppler normal. Cephalic presentation. BPP 8/8. [facility] recommends delivery at 37 weeks [...] Patient educated on resources available within the [employer] system. Studies of first-trimester SSRI exposure do [...] 12/22/21 Need for food assistance referred to [facility] and local food [employer] 12/22/2021 Lalit Gr RN 12/22/21 Poor dental hygiene encourage routine brushing and flossing and referal to local dental clinic that accepts [place] insurances 12/22/2021 Lalit Gr RN 12/22/21 education 1st trimester education given 12/22/2021 Lalit Gr RN 12/22/21 .1st have you cut down with your smoking Yes have you quit Yes have you seen a fuse cup expander No have you seen a social service worker No are you receiving counseling No have you received dental care during your No are you enrolled in [facility] No do you receive food stamps [...] resolved Discussed Post visit and setting up check airman Will schedule PPV 06/13/2022 Estefani Chandler RN [...] money to get more. Never true 05/01/2023 [place] Depression Scale Answer Date Recorded [place] Depression Scale Total 1 05/15/2023 The thought [...] pain. + movement. Completed anatomy scan with [facility], returns in a few weeks. Will recheck thyroid labs today. Return in 4 weeks. documented in this encounter Plan of Treatment Upcoming Encounters Date Type Department Care Team (Late st Contact Info) Description 08/12/2023 2:00 PM EDT [facility] [address] [place] [address] Edouard Myers Dia [address] [place] [address] Abnormal thyroid blood test 08/29/2023 1:45 PM EDT Imaging Maternal Medicine Imaging, Dia [place] [place] [phone] 09/10/2023 1:30 PM EDT Office Visit Gynecology/Obstetri cs Chantelle Pickenss [address] [place] [address] [place], [place] [address] [place] [address] Nurse Louis Healthy Beginnings Return Dia [place] [address] 09/26/2023 11:00 AM EDT Imaging Maternal Medicine Imaging, Dia Myers [address] [place] [place] [phone] 10/24/2023 11:00 AM EDT Imaging Maternal Medicine Imaging, [address]ia [place] [phone] Pending Results Name Type Priority Associated Diagnoses [...] study documented in this encounter Care Teams Cat Scan Tech Relationship Specialty [place] [address] [place] [address] [address] PCP - General 03/12/22 documented as of this encounter
--- OUTSIDE RECORDS SUMMARY | 2023-12-17 07:18 | External Medical Summary ---
Author Name Unknown Address Unknown Organization : Laboratory Report Ordering Provider Test Date Status TY GUSMAN 07/15/2023 13:37:21 Final Observation Date Value Abnormality Reference (Units ) Status INTERPRETATION 07/15/2023 13:37:21 SEE BELOW Final Screen negative for open NTD . RISK FOR ONTD 07/15/2023 13:37:21 <1:5000 Final CALC'D GESTATIONAL AGE 0307/15/2023 13:37:21 17 Final AFP, SERUM 07/15/2023 13:37:21 40.9 (ng/mL) Final AFP MOM 07/15/2023 13:37:21 0.88 Final Reference Range:
NTD < 2.50
IDD <1.90
TWINS <4.00
TWINS IDD <3.50
[...] assistance with
recalculations, please call your local [facility] laboratory. For assistance with
interpretation of these results, please contact
your Local [facility] genetic counselor or
call [phone] ([phone]).
Interpretive Cutoffs
Screen Positive for Open NTD:
> or = 2.50 adjusted MOM
> or = 1.90 adjusted MOM for insulin- dependent diabetics
> or = 4.00 adjusted MOM for twins
> or = 3.50 adjusted MOM for twins insulin-dependent diabetics
> or = 4.50 adjusted MOM for triplets
For additional information, please refer to
http://[email or web address].[employer]/faq/KXS46g9
(This link is being provided for
informational/educational purposes only.) DATE OF 07/15/2023 13:37:21 2000 Final COLLECTION DATE 07/15/2023 13:37:21 07/15/2023 Final MATERNAL WEIGHT 07/15/2023 13:37:21 116 (lbs ) Final EST'D DATE OF DELIVERY 07/15/2023 13:37:21 12/23/2023 Final АННА DETERMINED BY 07/15/2023 13:37:21 LMP Final MOTHER'S ETHNIC ORIGIN 07/15/2023 13:37:21 WHITE Final NUMBER OF FETUSES 07/15/2023 13:37:21 1 Final INSULIN DEPEND DIABETIC 07/15/2023 13:37:21 NO Final REPEAT SPECIMEN 07/15/2023 13:37:21 NO Final HX OF NEURAL TUBE DEFECTS 07/15/2023 13:37:21 NO Final PREV DOWN SYND 07/15/2023 13:37:21 NO Final DONOR EGG 07/15/2023 13:37:21 NO Final DONOR AGE: EGG RETRIEVAL 07/15/2023 13:37:21 NOT GIVEN Final Test performed by [facility]
[address],
[place] [address]

Technical Implementation Lead: Johana Dangelo MD,PHD,BIENVENIDO
Test Reported by [facility],
[facility],
[address] [place], [place]
Noel Simon M.D., Ph.D., Director of Laboratories
, CLIA [id number] Performing Location
--- OUTSIDE RECORDS SUMMARY | 2023-12-17 07:18 | External Medical Summary ---
Author Name Unknown Address Unknown Organization K01:LABORATORY [facility] [place] - [address] [place] [address] Laboratory Report Ordering Provider Test Date Status TY GUSMAN 08/12/2023 13:44:59 Final Observation Date Value Abnormality Reference (Units ) Status TSH 08/12/2023 13:44:59 1.44 0.27-4.20 (uIU/mL) Final Performing Location LABORATORY [facility] [place] - [address] [facility] [address]
--- OUTSIDE RECORDS SUMMARY | 2023-12-17 07:18 | External Medical Summary ---
Author Name Unknown Address Unknown Organization K01:LABORATORY [facility] [place] - [address] [place] [address] Laboratory Report Ordering Provider Test Date Status LUIZ VYAS 07/15/2023 13:37:21 Final Observation Date Value Abnormality Reference (Units ) Status EZEQUIEL SPECIMEN-LAV 07/15/2023 13:37:21 Freezing of extracted DNA, whole blood and/or serum. Final Performing Location LABORATORY [facility] [place] - [address] [facility] [address]
--- OUTSIDE RECORDS SUMMARY | 2023-12-17 07:18 | External Medical Summary | Summary of Care ---
Author Name Unknown Organization [facility] Address [address] [place] [address] Phone [phone] Care Team Providers Care Adolescent Counselor Name Role Phone Nayla Alicea MD Primary Care Provider [phone] Encounter Details Date Type Department Care Team (Late st Contact Info) Description 07/22/2023 Orders Only Outcomes Research Department [address] [place] [address] Korina Emmanuel CHRA [facility] Other*[id number] Allergies Active Allergy Reactions Criticality Noted Date Comments Ibuprofen 12/11/2021 Penicillins 12/11/2021 documented as of this encounter (statuses as of 07/22/2023) Medications Medication Sig Dispensed Refills Start Date End Date Status 28-0.8 MG Oral Tablet Take by mouth. 0 Active documented as of this encounter (statuses as of 07/22/2023) Active Problems Problem Noted Date Diagnosed Date [...] scheduled between 39-40 weeks gestation. As per [employer]'s 2010 [...] 05/15/2023 Angelina Felix RN 05/15/2023 nutrition [facility] discussed. Aware of program but [...] as of this encounter (statuses as of 07/22/2023) Resolved Problems Problem Noted Date Diagnosed Date Resolved Date Supervision of normal 05/15/2023 07/15/2023 Food insecurity 08/13/2022 05/16/2023 Overview: Per [facility] Protocol IUGR (intrauterine growth re striction) affecting care of mother 04/27/2022 07/04/2022 Overview: 06/14/22 AC noted at <1% with overall EFW of 2146 g at 2%. SYLVIE 17.7 cm. Umbilical artery Doppler normal. Cephalic presentation. BPP 8/8. [facility] recommends delivery at 37 weeks Last [...] Patient educated on resources available within the [employer] system. Studies of first-trimester SSRI exposure do [...] Need for food assistance referred to [facility] and local food Patient Feed 12/22/2021 Lalit Gr RN 12/22/21 Poor dental hygiene encourage routine brushing and flossing and referal to local dental clinic that accepts [place] insurances 12/22/2021 Lalit Gr RN 12/22/21 education 1st trimester education given 12/22/2021 Lalit Gr RN 12/22/21 .1st have you cut down with your smoking Yes have you quit Yes have you seen a mail clerk bills No have you seen a social services manager No are you receiving counseling No have you received dental care during your No are you enrolled in [facility] No do you receive food stamps [...] resolved Discussed Post visit and setting up varitype operator Will schedule PPV 06/13/2022 Estefani Chandler RN 06/13/2022 Problem Action Taken Date entered Entered by Date resolved Current needs or questions Patient denies having any current needs or questions 07/30/2022 Estefani Chandler RN 07/30/2022 Problem Action Taken Date entered Entered by Date resolved Post education Education given 07/30/2022 Estefani Chandler RN 07/30/2022 documented as of this encounter (statuses as of 07/22/2023) Immunizations Name Administration Dates Next Due TDAP [...] money to get more. Never true 05/01/2023 [place] Depression Scale Answer Date Recorded [place] Depression Scale Total 1 05/15/2023 The thought [...] Care Team (Late st Contact Info) Description 07/30/2023 12:45 PM EDT Office Visit Welding Equipment Repairer Obstetrics Maternal Medicine, [place] [address] [place] [address] Jenny Patino, [address] [place] [address] 07/30/2023 12:45 PM EDT Imaging Radiology [place] [address] [place] [address] 08/12/2023 1:30 PM EDT Office Visit Gynecology/Obstetrics Chantelle Myers [address] [facility] [place] [address] Annette Daugherty CRNP [address] [facility] [place] [address] Nurse Louis Healthy Beginnings Return Dia [address] [place] [address] Scheduled Orders Name Type Priority Associated Diagnoses Orde r Schedule MYCODE SUBSEQUENT ADULT Lab Routine [facility] Other*[id number] Every 6 Months for 2 Occurrences starting 07/22/2023 until 08/10/2024 Health Maintenance Due Date Last Done Comments [...] as of this encounter Visit Diagnoses Diagnosis [facility] Other*[id number] documented in this encounter Care Teams Adolescent Counselor Relationship Specialty [place] [address] [address] PCP - General 03/12/22 documented as of this encounter
--- OUTSIDE RECORDS SUMMARY | 2023-12-17 07:18 | External Medical Summary | Summary of Care ---
Author Name Unknown Organization [facility] Address [address] [place] [address] Phone [phone] Care Team Providers Care Pet Walker Name Role Phone Nayla Alicea MD Primary Care Provider [phone] Reason for Visit * Reason Onset Date Comments MyCode Consent 07/08/2023 Encounter Details Date Type Department Care Team (Late st Contact Info) Description 07/08/2023 Orders Only Outcomes Research Department [address] [place], [place] [id number] Erica Saenz CHRA [facility] Other*[id number]* Allergies Active Allergy Reactions Criticality Noted Date Comments Ibuprofen 12/11/2021 Penicillins 12/11/2021 documented as of this encounter (statuses as of 07/08/2023) Medications Medication Sig Dispensed Refills Start Date End Date Status 28-0.8 MG Oral Tablet Take by mouth. 0 Active documented as of this encounter (statuses as of 07/08/2023) Active Problems Problem Noted Date Diagnosed Date with 12 completed weeks gestation 11/2023 Abnormal thyroid blood test 06/11/2023 Overview: Low TSH 0.2 with normal free T4 with NOB Endocrinology recommended repeat TSH/T4 in second trimester Lab Results Component Value Date/Time TSH - [facility] 0.20 (L) 05/15/2023 01:21 PM T4, Free 05/15/2023 0.9 - 1.7 ng/dL 1.5 Supervision of normal 05/15/2023 History of section complicating pregnan cy 05/15/2023 [...] scheduled between 39-40 weeks gestation. As per [employer]'s 2010 practice [...] encouraged 05/15/2023 Angelina Felix RN 05/15/2023 nutrition [facility] discussed. Aware of program but most likely will decline 05/15/2023 Angelina Felix RN 05/15/2023 Racing heart beat 01/19/2022 Overview: See 9/23/22 Cardiology consult. ECHO and Zio Patch monitory x 7 days ordered Supervision of high risk in first trim lucas 12/22/2021 Overview: Primary 06/20/2022 EDC 12/23/2023 Estimated Date of Delivery Comme nts Yes 12/23/2023 Based on Ultraso und documented as of this encounter (statuses as of 07/08/2023) Resolved Problems Problem Noted Date Diagnosed Date Resolved Date Food insecurity 08/13/2022 05/16/2023 Overview: Per [facility] Protocol IUGR (intrauterine growth re striction) affecting care of mother 04/27/2022 07/04/2022 Overview: 06/14/22 AC noted at <1% with overall EFW of 2146 g at 2%. SYLVIE 17.7 cm. Umbilical artery Doppler normal. Cephalic presentation. BPP 8/8. [facility] recommends delivery at 37 weeks Last [...] Patient educated on resources available within the [employer] system. Studies of first-trimester SSRI exposure do [...] 12/22/21 Need for food assistance referred to [facility] and local food [employer] 12/22/2021 Lalit Gr RN 12/22/21 Poor dental hygiene encourage routine brushing and flossing and referal to local dental clinic that accepts [place] insurances 12/22/2021 Lalit Gr RN 12/22/21 education 1st trimester education given 12/22/2021 Lalit Gr RN 12/22/21 .1st have you cut down with your smoking Yes have you quit Yes have you seen a optimization consultant No have you seen a social science professor No are you receiving counseling No have you received dental care during your No are you enrolled in [facility] No do you receive food stamps [...] resolved Discussed Post visit and setting up spinning frame cleaner Will schedule PPV 06/13/2022 Estefani Chandler RN 06/13/2022 Problem Action Taken Date entered Entered by Date resolved Current needs or questions Patient denies having any current needs or questions 07/30/2022 Estefani Chandler RN 07/30/2022 Problem Action Taken Date entered Entered by Date resolved Post education Education given 07/30/2022 Estefani Chandler RN 07/30/2022 documented as of this encounter (statuses as of 07/08/2023) Immunizations Name Administration Dates Next Due TDAP [...] money to get more. Never true 05/01/2023 [place] Depression Scale Answer Date Recorded [place] Depression Scale Total 1 05/15/2023 The thought [...] as of this encounter Progress Notes * Erica Saenz CHRA - 07/08/2023 11:48 AM EST [employer] Consent Documentation Nehal Lee provided consent/authorization to participate in the [employer]. documented in this encounter Plan of Treatment Upcoming Encounters Date Type Department Care Team (Late st Contact Info) Description 07/15/2023 1:30 PM EDT Office Visit Gynecology/Obstetrics Chantelle Myers [address] [facility] [address] Backer, NICK [place] [address] [address] Nurse Louis Healthy Beginnings Return [facility] [address] [address] 07/30/2023 12:45 PM EDT Office Visit Home Care Music Therapist Obstetrics Maternal Medicine, [place] [address] [place] [address] Jenny Patino [address] [place] [address] 07/30/2023 12:45 PM EDT Imaging Radiology [facility], [place] [address] [place], [place] [id number] Scheduled Orders Name Type Priority Associated Diagnoses Orde r Schedule MYCODE INITIAL ADULT Lab Routine [facility] Other*[id number] Expected: 07/08/2023 (Approximate), Expires: 07/27/2024 Health Maintenance Due Date Last Done Comments [...] this encounter Visit Diagnoses Diagnosis [facility] Other*[id number]- Primary documented in this encounter Care Teams Pet Walker Relationship Specialty [place] [address] [facility] [address] [place] [address] PCP - General 03/12/22 documented as of this encounter
--- OUTSIDE RECORDS SUMMARY | 2023-12-17 07:18 | External Medical Summary ---
Author Name Unknown Address Unknown Organization K01:LABORATORY [facility] [place] - [address] [place] [address] Laboratory Report Ordering Provider Test Date Status LUIZ VYAS 07/15/2023 13:37:21 Final Observation Date Value Abnormality Reference (Units ) Status MYCODE SPECIMEN-SST 07/15/2023 13:37:21 Freezing of extracted DNA, whole blood and/or serum. Final Performing Location LABORATORY [facility] [place] - [address] [place] [address]
--- OUTSIDE RECORDS SUMMARY | 2023-12-17 07:18 | External Medical Summary | Summary of Care ---
Author Name Unknown Organization [facility] Address [address] [place] [address] Phone [phone] Care Team Providers Care Insurance Agency Owner Name Role Phone Nayla Alicea MD Primary Care Provider [phone] Reason for Visit * Reason Comments Outpatient Testing Encounter Details Date Type Department Care Team (Late st Contact Info) Description 07/15/2023 2:00 PM EDT Laboratory [facility], [facility] [address] [place] [id number] [facility] [address] [place] [address] [employer] Other*[id number]; Supervision of high risk in second trimester [...] scheduled between 39-40 weeks gestation. As per [employer]'s 2010 practice [...] encouraged 05/15/2023 Angelina Felix RN 05/15/2023 nutrition [facility] discussed. Aware of program but most likely will decline 05/15/2023 Angelina Felix RN 05/15/2023 Problem Action Taken Date entered Entered by Date resolved Current needs or questions Patient denies having any current needs or questions 07/15/2023 Estefani Chandler, YOU 07/15/2023 Racing heart beat 01/19/2022 Overview: See [...] artery Doppler normal. Cephalic presentation. BPP 8/8. [facility] recommends delivery at 37 weeks Last [...] Patient educated on resources available within the [employer] system. Studies of first-trimester SSRI exposure do [...] 12/22/21 Need for food assistance referred to [facility] and local food mon[place] 12/22/2021 Lalit Gr RN 12/22/21 Poor dental hygiene encourage routine brushing and flossing and referal to local dental clinic that accepts [place] insurances 12/22/2021 Lalit Gr RN 12/22/21 education 1st trimester education given 12/22/2021 Lalit Gr RN 12/22/21 .1st have you cut down with your smoking Yes have you quit Yes have you seen a cultural centre manager No have you seen a mental health social worker No are you receiving counseling No have you received dental care during your No are you enrolled in [facility] No do you receive [...] resolved Discussed Post visit and setting up social work manager Will schedule PPV 06/13/2022 Estefani Chandler RN [...] money to get more. Never true 05/01/2023 [place] Depression Scale Answer Date Recorded [place] Depression Scale Total 1 05/15/2023 The thought [...] Description 07/30/2023 12:45 PM EDT Office Visit Filler Shredder Machine Obstetrics Maternal Medicine, [place] [address] [place] [address] Jenny Patino, [address] [place] [address] 07/30/2023 12:45 PM EDT Imaging Radiology [facility] [address] [place] [address] 08/12/2023 1:30 PM EDT Office Visit Gynecology/Obstetrics Chantelle Myers [address] [facility] [place] [address] Annette Daugherty CRNP [address] [facility] [place] [address] Nurse Louis Healthy Beginnings Return Dia [address] [facility] [place] [address] Pending Results Name Type Priority Associated Diagnoses Date /Time MYCODE INITIAL ADULT Lab Routine [facility] Other*[id number] 07/15/2023 1:37 PM EDT MATERNAL SERUM AFP Lab Routine Supervision of high risk in second trimester 07/15/2023 1:37 PM EDT MYCODE INITIAL ADULT-PINK Lab Routine [facility] Other*[id number] 07/15/2023 1:37 PM EDT MYCODE SST1 Lab Routine [facility] Other*[id number] 07/15/2023 1:37 PM EDT MYCODE SST2 Lab Routine [facility] Other*[id number] 07/15/2023 1:37 PM EDT Health Maintenance Due Date Last [...] this encounter Visit Diagnoses Diagnosis [facility] Other*[id number] Supervision of high risk in second trimester Unspecified high-risk documented in this encounter Care Teams Insurance Agency Owner Relationship Specialty [place] [address] [facility] [address] [place] [address] PCP - General 03/12/22 documented as of this encounter
--- OUTSIDE RECORDS SUMMARY | 2023-12-17 07:18 | External Medical Summary | Summary of Care ---
Author Name Unknown Organization [facility] Address [address] [place] [address] Phone [phone] Care Team Providers Care Parts Room Clerk Name Role Phone Nayla Alicea MD Primary Care Provider [phone] Reason for Visit * Reason Comments Ultrasound Encounter Details Date Type Department Care Team ([facility] Contact Info) Description 07/30/2023 12:45 PM EDT Office Visit Microbiology Laboratory Manager Obstetrics Maternal Medicine, [place] [address] [phone] Jenny Patino, [address] [phone] History of prior with IUGR *; Encounter for anatomic survey; 19 weeks gestation of Allergies Active Allergy Reactions Criticality Noted Date Comments Ibuprofen 12/11/2021 Penicillins 12/11/2021 documented as of this encounter (statuses as of 07/30/2023) Medications Medication Sig Dispensed Refills Start Date End Date Status 28-0.8 MG Oral Tablet Take by mouth. 0 Active documented as of this encounter (statuses as of 07/30/2023) Active Problems Problem Noted Date Diagnosed Date [...] between 39-40 weeks gestation. As per [employer]'s 2010 practice [...] encouraged 05/15/2023 Angelina Felix RN 05/15/2023 nutrition [facility] discussed. Aware of program but [...] as of this encounter (statuses as of 07/30/2023) Resolved Problems Problem Noted Date Diagnosed Date Resolved Date Supervision of normal 05/15/2023 07/15/2023 Food insecurity 08/13/2022 05/16/2023 Overview: Per [facility] Protocol IUGR (intrauterine growth re striction) affecting care of mother 04/27/2022 07/04/2022 Overview: 06/14/22 AC noted at <1% with overall EFW of 2146 g at 2%. SYLVIE 17.7 cm. Umbilical artery Doppler normal. Cephalic presentation. BPP 8/8. [facility] recommends delivery at 37 weeks [...] Patient educated on resources available within the [employer] system. Studies of first-trimester SSRI exposure do [...] 12/22/21 Need for food assistance referred to [facility] and local food [place] 12/22/2021 Lalit Gr RN 12/22/21 Poor dental hygiene encourage routine brushing and flossing and referal to local dental clinic that accepts [place] insurances 12/22/2021 Lalit Gr RN 12/22/21 education 1st trimester education given 12/22/2021 Lalit Gr RN 12/22/21 .1st have you cut down with your smoking Yes have you quit Yes have you seen a grinding room supervisor No have you seen a licensed social worker No are you receiving counseling No have you received dental care during your No are you enrolled in [facility] No do you receive food [...] resolved Discussed Post visit and setting up ribbon lap machine tender Will schedule PPV 06/13/2022 Estefani Chandler RN 06/13/2022 Problem Action Taken Date entered Entered by Date resolved Current needs or questions Patient denies having any current needs or questions 07/30/2022 Estefani Chandler RN 07/30/2022 Problem Action Taken Date entered Entered by Date resolved Post education Education given 07/30/2022 Estefani Chandler RN 07/30/2022 documented as of this encounter (statuses as of 07/30/2023) Immunizations Name Administration Dates Next Due TDAP [...] money to get more. Never true 05/01/2023 Manhattan Depression Scale Answer Date Recorded [place] Depression Scale Total 1 05/15/2023 The thought [...] Progress Notes * Jenny Patino DO - 07/30/2023 1:57 PM EDT MATERNAL MEDICINE VISIT Nehal Lee presented today at 19w1d for an ultrasound and follow-up of her high risk . She was seen for the following indications: Problem List Items Addressed This Visit History of prior with IUGR - Primary Low risk NIPT and msAFP appreciated. Reviewed plan to follow growth serially to r/o FGR, especially as the third trimester approaches. NSTs will be needed if FGR is diagnosed. Other Visit Diagnoses Encounter for anatomic survey 19 weeks gestation of We reviewed today's ultrasound findings. Normal growth with no evidence of structural abnormalities, however exam suboptimal dueto position. (For full details, please refer to ultrasound report provided separately). Ms. Lee's questions were answered to her satisfaction. She was advised to contact our office orher OB provider for any additional questions regarding her . RECOMMENDATIONS: Recommend follow up ultrasound with MFM in 4 weeks for growth and to complete anatomy survey secondary to above indications. Thank you for allowing us to participate in the care of this patient. Please call with any questions. Jenny Patino DO 07/30/2023 1:57 PM documented in this encounter Miscellaneous Notes * Assessment & Plan Note - Jenny Patino DO - 07/30/2023 1:52 PM EDT Associated Problem(s): History of prior with IUGR Low risk NIPT and msAFP appreciated. Reviewed plan to follow growth serially to r/o FGR, especially as the third trimester approaches. NSTs will be needed if FGR is diagnosed. documented in this encounter Plan of Treatment Upcoming Encounters Date Type Department Care Team (Late st Contact Info) Description 08/12/2023 1:30 PM EDT Office Visit Gynecology/Obstetrics Chantelle Myers [address] [place] [address] [place], [place] [address] [place] [phone] Nurse [facility] Dia [address] [place] [address] 08/29/2023 1:45 PM EDT Imaging Maternal Medicine Imaging, [address] [place] [phone] 09/26/2023 11:00 AM EDT Imaging Maternal Medicine Imaging, [address] [place] [phone] 10/24/2023 11:00 AM EDT Imaging Maternal Medicine Imaging, [address] [place] [phone] Scheduled Orders Name Type Priority Associated Diagnoses Orde r Schedule MFM US PREG FOLLOW UP EACH FETUS Medical Imaging Routine History of prior with IUGR Encounter for anatomic survey 19 weeks gestation of 6 Occurrences starting 07/30/2023 until 01/30/2024 Health Maintenance Due Date Last Done Comments [...] History of prior with IUGR - Primary Encounter for anatomic survey 19 weeks gestation of state, incidental documented in this encounter Care Teams Parts Room Clerk Relationship Specialty Start [place] [id number] [address] PCP - General 03/12/22 documented as of this encounter
--- NOTE | 2023-12-17 09:41 | Labor Progress Brief Note ---
Date of Service December 17, 2023 Subjective Reason For Note: Routine Evaluation Assessment & Plan Admission and Anticipated Discharge Date Admission Date: December 17, 2023 Physical Exam Genitourinary: Manual OB Exam: + cervical dilation fingertip, + cervical effacement 50%, + station high and + amniotic fluid clear Patient is not interested in having any Pitocin started or an epidural for labor. She has not made any change so she is requesting to have a repeat C- section rather than continue to labor. Consents have been signed for repeat C- section. Risks/benefits for surgery vs. TOLAC explained to patient. All questions were answered. Results & Data Vital Signs (Past 12 Hours) Vital Signs Temp Pulse Resp BP 12/17/23 07:09 36.5 C 78 18 119/77 12/17/23 05:35 77 118/76 12/17/23 05:30 18 12/17/23 05:30 36.6 C 18 12/17/23 03:00 18 12/17/23 03:00 36.7 C 18 12/17/23 01:58 75 110/77 12/17/23 00:56 36.8 C 82 18 132/77
[2023-12-17] MEDS ORDERED: CLINDAMYCIN/D5W 600 MG/50 ML BAG IV ONE (09:46)
[2023-12-17] MEDS: LACTATED RINGER'S 1,000 ML IV SCH ×2 (10:00→11:15)
[2023-12-17] MEDS: AZITHROMYCIN 500 MG in DEXTROSE 5% 250 ML IV ONE (10:06)
--- NOTE | 2023-12-17 10:45 | Anesthesiology Consultation ---
Date of Service December 17, 2023 Assessment & Plan Chart Review Chart Review: Acceptable Risk for Surgery Consults Requested none ASA ASA2 Proposed Anesthesia Anesthesia Type: Spinal Risk / Benefits Reviewed With: PT / POA / Parent / Guardian, Accepts Plan and Informed Consent Obtained History Height/Weight Height: 5 ft 6 in Weight: 69.4 kg Allergies Allergy/AdvReac Type Severity Reaction Status Date / Time ibuprofen [From Motrin] Allergy Unknown Verified 12/17/23 01:05 Penicillins Allergy Hives Verified 12/17/23 01:05 Medications Home Medications Medication Instructions Recorded Confirmed Last Taken prenat.vits,jesús,pej-azzh-zfzoi 1 tab PO DAILY 06/18/22 12/17/23 12/16/23 Active Medications Generic Name Dose Route Start Last Admin Trade Name Freq PRN Reason Stop Dose Admin Butorphanol Tartrate 1 mg 12/17/23 02:18 12/17/23 08:25 Butorphanol Tartrate 2 Mg/Ml Vial IV 01/16/24 02:17 1 mg Q2H PRN Administration Pain Azithromycin 500 mg/ Dextrose 255 mls @ 125 mls/hr 12/17/23 09:46 12/17/23 10:06 IV 12/17/23 11:48 125 mls/hr NOW ONE Administration NPO Date Last Intake of Fluids: 12/17/23 Time Last Intake of Fluids: 10:00 Date Last Intake of Solids: 12/16/23 Time Last Intake of Solids: 22:00 Past Medical History Medical History Anorexia nervosa in remission Anxiety and depression Exercise / Class Metabolic Activity II 4-5 Yardwork/Stairs/Walk up hill Past Family History Family History Other FHx: pancreatic cancer Nausea and vomiting after administration of anesthetic agent Past Surgical History Surgical History Family history of complication of anesthesia Multiple family members maternal side "have woken up during their surgeries" Nausea and vomiting after administration of anesthetic agent 06/20/22 [facility], "vomiting during whole " Hx of section 06/20/22 [facility] Past Anesthesia History No Hx of Anesthesia Complications and No Family Hx of Anesthesia Complications History of PONV No Hx of PONV and No Hx of Motion Sickness Social History Smoking Status: Never smoker Do You Dip or Chew Tobacco: No Hx Alcohol Use: No Hx Substance Use: No substance use type: does not use Last Used Substance Other:: 3-4 years ago Physical Exam Vital Signs Last Vital Signs Temp 97.7 F 12/17/23 07:09 Pulse 75 12/17/23 09:38 Resp 18 12/17/23 07:09 BP 122/79 12/17/23 09:38 ENMT Mouth: + chipped teeth Thyromental Distance: > or= 3.5 Finger Breadths Mallampati Class: II Neck normal visual inspection Respiratory normal respiratory effort Auscultation: lungs clear to auscultation bilaterally Cardiovascular Rate/Rhythm: regular rate and regular rhythm Testing Laboratory Results 12/17/23 01:11 Blood Type O Positive 12/17/23 01:11 Antibody Screen NEGATIVE 12/17/23 01:11
[2023-12-17] MEDS ORDERED: fentaNYL citrate PF 100 MCG/2 ML VIAL ONE (10:50)
[2023-12-17] MEDS ORDERED: OXYTOCIN 10 UNITS/ML VIAL ONE (10:50)
[2023-12-17] MEDS ORDERED: MoRPHine SULFATE PF 1 MG/ML 10 ML AMP/VIAL ONE (10:51)
[2023-12-17] MEDS: ACETAMINOPHEN 500 MG TAB PO SCH (10:56)
[2023-12-17] MEDS ORDERED: DEXAMETHASONE SOD INJ 4 MG/ML VIAL ONE (10:59)
[2023-12-17] MEDS ORDERED: ONDANSETRON INJ 2 MG/ML 2 ML VIAL ONE (10:59)
[2023-12-17] MEDS: cefOXitin 2,000 MG in DEXTROSE 5 % MINI-B 50 ML IV SCH (11:14)
[2023-12-17] MEDS: AZITHROMYCIN 500 MG in DEXTROSE 5% 250 ML IV SCH (11:14)
[2023-12-17] MEDS: ACETAMINOPHEN 500 MG TAB ONE (11:15)
[2023-12-17] MEDS: CITRIC ACID/SODIUM CITRATE 15 ML UDC PO ONE (11:15)
[2023-12-17] MEDS: CITRIC ACID/SODIUM CITRATE 15 ML UDC PO SCH (11:15)
[2023-12-17] MEDS ORDERED: ePHEDrine sulfate 50 MG/ML AMP IV PRN (12:32)
[2023-12-17] MEDS ORDERED: NALOXONE HCL 0.08 MG in SYRINGE 1.8 ML IV PRN (12:32)
[2023-12-17] MEDS ORDERED: diphenhydrAMINE 50 MG/ML VIAL IV PRN (12:32)
[2023-12-17] MEDS ORDERED: MoRPHine SULFATE PF 1 MG/ML 10 ML AMP/VIAL INT SPINAL ONE (12:32)
[2023-12-17] MEDS ORDERED: NALBUPHINE HCL 5 MG in SYRINGE 0 ML IV PRN (12:32)
[2023-12-17] MEDS ORDERED: HYDROmorphone INJ 0.5 MG/0.5 ML SYR IV PRN (12:32)
[2023-12-17] MEDS ORDERED: NALOXONE HCL 1 MG in SODIUM CHLORIDE 0.9% 1,000 ML IV PRN (12:32)
[2023-12-17] MEDS ORDERED: LACTATED RINGER'S 500 ML IV PRN (12:32)
[2023-12-17] MEDS ORDERED: NALOXONE HCL 0.4 MG/1 ML VIAL/CARP IV PRN (12:32)
[2023-12-17] MEDS ORDERED: NO NARCOTICS OR SEDATIVES SCH (12:45)
[2023-12-17] MEDS ORDERED: SODIUM CHLORIDE 0.9% 1,000 ML IV SCH (12:45)
[2023-12-17] MEDS ORDERED: DC INTRASPINAL MORPHINE SCH (12:45)
--- NOTE | 2023-12-17 13:26 | Post Operative Brief Note ---
Immediate Post Op Note Date of Surgery December 17, 2023 Pre & Post Diagnosis Operation Date: 12/17/23 12:00 Pre-Op Diagnosis: Repeat Section for Failed Post-Op Diagnosis: Repeat Section for Failed for a viable baby girl at [address] Maradiaga. I identified the patient and participated in the time-out.: Yes Procedure Operation Date: 12/17/23 12:00 Actual Procedures p Repeat Section for Failed (Not Applicable) - Thaddeus Maradiaga MD Surgeon Thaddeus Maradiaga MD Conference Coordinator Mariaelena Nunez RN Estimated Blood Loss 302 Findings Consistent with Post-Op Diagnosis live female Apgars 8/9 weight 6-10. Nuchal cord x1 Fluids LR 800 ml. Specimens placenta Drains Torres Catheter (Draining clear yellow urine. Output monitored by Anesthesia. 400 ml.) Anesthesia Type Spinal Complications none Disposition Accompanied Patient To Recovery: Yes Overlapping Procedure I was present for: the critical portions of procedure. I was immediately available: during the entire case. Back up surgeon: was not required during procedure.
--- NOTE | 2023-12-17 13:56 | Anesthesiology Progress Note ---
Date of Service December 17, 2023 Anesthesia Post Procedure Vital Signs Vital Signs: Temp Pulse Resp BP Pulse Ox 12/17/23 13:53 97.5 F L 75 16 107/61 98 12/17/23 13:51 72 100 12/17/23 13:49 64 108/68 12/17/23 13:46 72 100 12/17/23 13:45 71 108/67 12/17/23 13:41 75 99 12/17/23 13:39 72 90 12/17/23 13:36 71 100 12/17/23 13:35 68 110/64 12/17/23 13:31 73 100 12/17/23 13:27 69 109/63 12/17/23 13:26 71 100 12/17/23 13:21 75 100 12/17/23 13:16 75 107/61 98 12/17/23 11:03 76 118/83 12/17/23 09:38 75 122/79 12/17/23 07:09 97.7 F 78 18 119/77 12/17/23 05:35 77 118/76 12/17/23 05:30 18 12/17/23 05:30 97.9 F 18 12/17/23 03:00 18 12/17/23 03:00 98.1 F 18 12/17/23 01:58 75 110/77 12/17/23 00:56 98.2 F 82 18 132/77 Pain Intensity Lower Medial Abdomen: Pain Intensity: 6 Transfer of Care Handoff Completed per policy Notes Mental Status: alert / awake / arousable and participated in evaluation Nausea / Vomiting: adequately controlled Pain: adequately controlled Airway Patency, RR, SpO2: stable & adequate BP & HR: stable & adequate Hydration State: stable & adequate Neuraxial Anesthesia: was administered and sensory block is resolving Anesthetic Complications: no major complications apparent and Pt Satisfied with anesthetic care
[2023-12-17] MEDS: ONDANSETRON INJ 2 MG/ML 2 ML VIAL IV PRN (14:38)
[2023-12-17] MEDS ORDERED: ACETAMINOPHEN 325 MG TAB PO PRN (16:49)
[2023-12-17] MEDS: ACETAMINOPHEN 1,000 MG/100 ML VIAL IV PRN (17:05)
[2023-12-17] MEDS ORDERED: traMADol HCL 50 MG TABLET PO SCH (18:00)
[2023-12-17] MEDS: OXYTOCIN 20 UNITS/1002ML LR IV ONE (19:44)
[2023-12-17] MEDS: KETOROLAC 30 MG/ML VIAL IV PRN (19:59)
[2023-12-17] MEDS: SIMETHICONE 80 MG CHEW PO SCH (20:29)
[2023-12-17] MEDS: DOCUSATE SODIUM 100 MG CAP PO SCH (20:29)
[2023-12-18] MEDS: ACETAMINOPHEN 325 MG TAB PO SCH (00:01)
[2023-12-18] MEDS: OXYTOCIN 20 UNITS in LACTATED RINGER'S 1,000 ML IV SCH (00:05)
[2023-12-18] MEDS: PRENATAL VITAMIN 1 TAB PO SCH (09:06)
--- NOTE | 2023-12-18 10:58 | Obstetrical Progress Note ---
Date of Service December 18, 2023 Assessment & Plan (1) delivery delivered: Plan POD #1 pot doing well continue Post op care Subjective Ambulation: ambulating normally Voiding: no voiding problems Passing Gas:: Yes Diet Tolerance:: clear liquids Lochia:: Small Feeding Type:: breast feeding Review of Systems All systems reviewed & are unremarkable except as noted in HPI & below Physical Exam Constitutional WD/WN, vitals as above well developed and well nourished Eyes PERRL, conjunctivae normal, anicteric sclerae ENMT external ear and nose normal, oropharynx normal Neck trachea midline, no thyromegaly Respiratory normal respiratory effort, lungs clear to auscultation Cardiovascular RRR, no murmur, no edema Chest (Breasts) normal inspection/palpation of breasts Gastrointestinal (Abdomen) normal bowel sounds, soft, nontender, no hepatosplenomegaly Musculoskeletal no cyanosis or clubbing, extremities motor strength 5/5 Skin no rashes, warm and dry + incision (Clean,dry and intact) Neurologic patellar DTR's 2+ bilat, sensation intact Psychiatric A+Ox3, euthymic affect Genitourinary normal external appearance Lymphatic no cervical or axillary lymphadenopathy Results & Data Vital Signs (Past 12 Hours) Vital Signs Temp Pulse Resp BP Pulse Ox O2 Del Method 12/18/23 08:00 36.2 C L 72 16 103/71 98 Room Air 12/18/23 07:16 16 97 12/18/23 06:00 16 99 12/18/23 05:00 16 98 12/18/23 04:00 36.4 C L 63 16 100/65 99 Room Air 12/18/23 04:00 16 99 12/18/23 02:00 16 98 12/18/23 01:00 16 99 12/18/23 00:00 16 99 12/18/23 00:00 36.5 C 71 16 99 Room Air 12/17/23 23:00 16 97
[2023-12-18] MEDS: oxyCODONE HCL IR 5 MG TAB (IMMEDIATE RELEASE) PO PRN (11:19)
[2023-12-18 12:47] LABS: Basophils # (auto) 0.01 K/uL (0.00-0.20); Basophils % (auto) 0.1 %; Eosinophils # (auto) 0.09 K/uL (0.00-0.50); Eosinophils % (auto) 0.9 %; Hemoglobin 10.7 g/dl (12.0-16.0); Immature Granulocytes # (auto) 0.06 K/uL (0.01-0.20); Immature Granulocytes % (auto) 0.6 %; Lymphocytes # (auto) 1.88 K/uL (1.20-3.40); Lymphocytes % (auto) 17.9 %; Mean Corpuscular Hemoglobin 26.4 pg (25.0-34.0); Mean Corpuscular Hgb Conc 31.5 g/dL (32.0-36.0); Mean Corpuscular Volume 83.7 fL (80.0-100.0); Mean Platelet Volume 10.3 fL (9.4-12.4); Monocytes % (auto) 4.8 %; Neutrophils # (auto) 7.97 K/uL (1.40-6.50); Neutrophils % (auto) 75.7 %; Platelet Count 217 K/uL (130-400); RDW Coefficient of Variation 13.3 % (11.5-14.5); RDW Standard Deviation 40.7 fL (36.4-46.3); Red Blood Count 4.06 M/uL (4.20-5.40); White Blood Count 10.51 K/ul (4.8-10.8)
[2023-12-19 00:03] VITALS: RESP 18; O2SAT 98
[2023-12-19 09:29] VITALS: TEMP 97.9
[2023-12-19 09:35] VITALS: BP 108/70; PULSE 88
--- NOTE | 2023-12-19 10:02 | Obstetrical Progress Note ---
Date of Service December 19, 2023 Assessment & Plan Admission and Anticipated Discharge Date Admission Date: December 17, 2023 Subjective Patient is seen and examined. She feels well, no complaints. Pain is under control with oral meds. Ambulating without dizziness Voiding without difficulty Tolerating regular diet with out N&V Flatus + BM + Bleeding is minimal No fever/ chills/ CP/ SOB/ N&V/ Leg pain Breast feeding without problems Vital Signs Temp Pulse Pulse Resp BP BP Pulse Ox 12/19/23 09:33 36.6 C 77 88 18 115/83 108/70 98 12/19/23 07:30 36.6 C 77 18 115/83 98 12/18/23 23:45 12/18/23 23:45 37.0 C 88 18 112/75 98 O2 Del Method 12/19/23 09:33 12/19/23 07:30 Room Air 12/18/23 23:45 Room Air 12/18/23 23:45 Room Air Lab Results 12/17/23 12/17/23 12/18/23 Range/Units 01:11 14:23 12:28 WBC 9.37 10.51 (4.8-10.8) K/ul RBC 4.07 L 4.06 L (4.20-5.40) M/uL Hgb 11.0 L 10.7 L (12.0-16.0) g/dl Hct 33.9 L 34.0 L (37.0-47.0) % MCV 83.3 83.7 (80.0-100.0) fL MCH 27.0 26.4 (25.0-34.0) pg MCHC 32.4 31.5 L (32.0-36.0) g/dL RDW Std Deviation 39.9 40.7 (36.4-46.3) fL RDW Coeff of Conor 13.3 13.3 (11.5-14.5) % Plt Count 238 217 (130-400) K/uL MPV 10.2 10.3 (9.4-12.4) fL Immature Gran % (Auto) 0.6 % Neut % (Auto) 75.7 % Lymph % (Auto) 17.9 % [place] % (Auto) 4.8 % Eos % (Auto) 0.9 % Baso % (Auto) 0.1 % Neut # (Auto) 7.97 H (1.40-6.50) K/uL Lymph # (Auto) 1.88 (1.20-3.40) K/uL [place] # (Auto) 0.50 (0.11-0.59) K/uL Eos # (Auto) 0.09 (0.00-0.50) K/uL Baso # (Auto) 0.01 (0.00-0.20) K/uL Immature Gran # (Auto) 0.06 (0.01-0.20) K/uL POC Glucose 85 (70-99) mg/dl Treponema pallidum Ab Negative (Negative) Blood Type O Positive Antibody Screen NEGATIVE PE: General: Alert, orientedx3, NAD CVS: S1S2 RRR Lungs; CTAB Abd: soft, NT, ND, BS+, fundus firm, below Umbilicus Incision: Clean, dry, intact Perineum intact, Lochia rubra minimal Ext; NT, no edema AP: 22 yo s/p RC Section, pod# 2 VSS Afebrile doing well Continue routine postop care Encourage ambulation, PO intake All questions were answered D/C home , f/u in office Results & Data Vital Signs (Past 12 Hours) Vital Signs Temp Pulse Pulse Resp BP BP Pulse Ox 12/19/23 09:33 36.6 C 77 88 18 115/83 108/70 98 12/19/23 07:30 36.6 C 77 18 115/83 98 12/18/23 23:45 12/18/23 23:45 37.0 C 88 18 112/75 98 O2 Del Method 12/19/23 09:33 12/19/23 07:30 Room Air 12/18/23 23:45 Room Air 12/18/23 23:45 Room Air
--- NOTE | 2024-01-04 16:33 | Operative Report ---
Post Operative Report Pre & Post Diagnosis Operation Date: 12/17/23 12:00 Pre-Op Diagnosis: Repeat Section for Failed Post-Op Diagnosis: Repeat Section for Failed for a viable baby girl at [address] Maradiaga. I identified the patient and participated in the time-out.: Yes Procedure Operation Date: 12/17/23 12:00 Actual Procedures p Repeat Section for Failed (Not Applicable) - Thaddeus Maradiaga MD Surgeon Thaddeus Maradiaga MD Photovoltaic Installation Technician Mariaelena Nunez RN Quantitative Blood Loss (QBL) 302 Findings Consistent with Post-Op Diagnosis Live female Apgars 8/9 weight 6-10 Fluids LR 800 ml. Specimens placenta Drains none Anesthesia Type Spinal Complications none Disposition Accompanied Patient To Recovery: Yes Indications failed Description of Procedure Under satisfactory spinal anesthesia the patient was prepped draped usual sterile fashion timeout was called and antibiotics were given preop. Low Pfannenstiel incision through her prior scar from previous was then ma de carrying the incision down through the abdominal cavity in successive layers without difficulty upon entering into the abdominal cavity the peritoneum was stretched to the AP diameter the bladder blade was inserted and a low segment transverse incision over the lower uterine segment after a bladder flap was made was made the incision was widened in the AP diameter the incision was nicked the patient was then delivered from the vertex presentation with the aid of fundal pressure delivering a live female the cord was doubly clamped and cut after a 1 minute cord delay Apgars were 8 and 9 weight was 6 pounds 10 ounces it was found that the baby had a nuchal cord x 1. The blood was then obtained the placenta was then delivered spontaneously and intact submitted to pathology as a separate specimen. The uterus was exteriorized was cleaned and examined and no active bleeding was noted the uterus was firming up with IV Pitocin given in the IV bag. Ring forceps were then placed on both angles and the inferior margin uterus was closed in a double layer closure with 0 Vicryl suture to continuous interlocking fashion followed by a second indicated suture. The initial sponge needle instrument count were found to be correct tubes ovaries bilaterally were found to be within normal limits the uterus was then placed back into the normal anatomical position inspection revealed no active bleeding. The fascia was then closed with 0 Vicryl suture in a continuous fashion. Subcuticular space was then closed with 3-0 plain interrupted sutures. The skin was then reapproximated with 4-0 Monocryl subcuticular sutures. Telfa and sponge dressing were then applied. The final sponge needle instrument count were found to be correct the patient was then placed supine on a stretcher taken to recovery room in stable condition the QBL was 302. Please note that Mariaelena Nunez RN was the lens assistant and she was need needed for retraction help with fundal pressure for delivery of the head and help at closure of the uterus and abdomen. I attest to the content of the Intraoperative Record and any orders documented therein. Any exceptions are noted below.
--- NOTE | 2024-01-04 16:35 | Discharge Summary ---
Date of Service December 17, 2023 Admission HPI Per Admitting Provider patient is a 22-year-old -0-1-1 at 39 weeks and 1 day gestation who started to feel leakage of fluid around 11:50 PM last night, she has been leaking since then. It has been clear, no blood. She has mild irregular contractions but they are not painful. She reports good movements. Her has been complicated by, 1. History of prior for IUGR failure to descend and category 2 strip, on June 2022, has scheduled for tomorrow 2. close interval, 3. History of IUGR, growth ultrasounds have been normal by M patient states she was discouraged from repeat due to close interval and she decided for a repeat which was scheduled for tomorrow. She states she wants to talk about TOLAC/. I discussed the risks and benefits of each and gave her the form which was released by [facility]. the patient and her partner read the form in details and I answered their all questions and they want to think about it and then decide Discharge Data Consultations 12/17/23 01:00 Consult Anesthesiology Stat Procedures Performed Operation Date: 12/17/23 12:00 Actual Procedures p Repeat Section for Failed (Not Applicable) - Thaddeus Maradiaga MD Hospital Course (1) delivery delivered: repeat done Plan follow up in office in 1 week for incision check
== END 2023-12-19 13:45 | disposition home or self-care (01) | DRG 788 ==
LOC: OPB 00:37 → 4S1 00:41 → 4E2 15:30